=== PATIENT | male | born 1985 | race Caucasian/White ===

== ENCOUNTER 2022-12-29 16:58 | Inpatient (IN) | payer OTHER, SELFPAY ==
[2022-12-29 17:29] VITALS: BMI 21.6
[2022-12-29 17:49] VITALS: BP 135/77; PULSE 67; RESP 20; TEMP 36.6; O2SAT 99
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
[2022-12-29] MEDS: traZODone HCL 50 MG TABLET PO (21:22)
[2022-12-29] MEDS: cloNIDine HCL 0.1 MG TABLET PO (21:22)
[2022-12-30] MEDS: Naltrexone HCl 50 MG TABLET PO (08:16)
[2022-12-30 09:21] LABS: Alanine Aminotransferase 23 U/L (0-40); Albumin Level 4.1 g/dL (3.5-5.0); Alkaline Phosphatase 134 U/L (39-117); Anion Gap 11 (12-20); Aspartate Amino Transferase 22 U/L (5-37); Bilirubin Total 0.5 mg/dL (0.0-1.0); Blood Urea Nitrogen 9 mg/dL (9-16); Calcium 9.7 mg/dL (8.4-10.2); Carbon Dioxide 29 mmol/L (22-29); Chloride 102 mmol/L (96-108); Cholesterol 196 mg/dL (<200); Creatinine Clr Calc Pharmacy 134.9; Estimated Glomerular Filt Rate > 60; Glucose Fasting 108 mg/dL (60-99); HDL Cholesterol 50 mg/dL (>40); LDL Cholesterol Calculated 112 mg/dL (<100); Potassium 4.5 mmol/L (3.3-5.1); Sodium 137 mmol/L (135-145); Total Protein 7.6 g/dL (6.5-8.0); Triglycerides 173 mg/dL (<150)
[2022-12-30 10:22] VITALS: BP 126/80; PULSE 81; RESP 20; TEMP 36.2; O2SAT 98
[2022-12-30] MEDS: cloNIDine HCL 0.1 MG TABLET PO ×2 (11:35→18:15)
[2022-12-30 11:36] VITALS: BP 124/76; PULSE 76
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
[2022-12-30] MEDS: Venlafaxine HCl ER 37.5 MG CAP.ER.24H PO (18:14)
[2022-12-30 18:16] VITALS: BP 122/77; PULSE 77
[2022-12-30 19:50] VITALS: BP 118/76; PULSE 74; RESP 16; TEMP 36.7; O2SAT 97
[2022-12-30] MEDS: traZODone HCL 50 MG TABLET PO (22:01)
[2022-12-30] MEDS: hydrOXYzine HCL 25 MG TABLET PO (22:01)
[2022-12-30] MEDS: Cyclobenzaprine HCl 5 MG TABLET PO (22:01)
[2022-12-31 06:00] VITALS: BP 120/77; PULSE 88; RESP 20; TEMP 36.4; O2SAT 94
[2022-12-31] MEDS: Venlafaxine HCl ER 37.5 MG CAP.ER.24H PO (08:30)
[2022-12-31] MEDS: Naltrexone HCl 50 MG TABLET PO (08:30)
[2022-12-31 10:50] VITALS: BP 119/69; PULSE 107; RESP 16; O2SAT 98
[2022-12-31] MEDS: cloNIDine HCL 0.1 MG TABLET PO ×2 (10:51→19:01)
[2022-12-31] MEDS: Acetaminophen 325 MG TABLET 650 MG PO (10:51)
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
[2022-12-31 18:00] VITALS: BP 120/79; PULSE 77; RESP 16
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
[2022-12-31 20:05] VITALS: BP 115/70; PULSE 70; RESP 14; TEMP 36.8; O2SAT 99
[2022-12-31] MEDS: Cyclobenzaprine HCl 5 MG TABLET PO (21:48)
[2022-12-31] MEDS: traZODone HCL 50 MG TABLET PO (21:49)
[2023-01-01 07:45] VITALS: BP 105/60; PULSE 76; TEMP 36.5; O2SAT 94
[2023-01-01] MEDS: Venlafaxine HCl ER 37.5 MG CAP.ER.24H PO (08:49)
[2023-01-01] MEDS: Naltrexone HCl 50 MG TABLET PO (09:19)
[2023-01-01] MEDS: cloNIDine HCL 0.1 MG TABLET PO ×2 (11:05→19:49)
[2023-01-01 19:45] VITALS: BP 117/76; PULSE 74; RESP 16
[2023-01-01] MEDS: guaiFENesin DM 100/10/5 ML 5 ML SYRUP PO (20:27)
[2023-01-01] MEDS: Throat Lozenge, Medicated LOZENGE 1 LOZENGE MUCOUS MEM (20:28)
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
[2023-01-01] MEDS: Cyclobenzaprine HCl 5 MG TABLET PO (20:52)
[2023-01-01] MEDS: traZODone HCL 50 MG TABLET PO (20:52)
[2023-01-02 07:47] VITALS: BP 105/65; PULSE 78; RESP 14; TEMP 36.3; O2SAT 98
[2023-01-02] MEDS: Venlafaxine HCl ER 75 MG CAP.ER.24H PO (08:48)
[2023-01-02] MEDS: Naltrexone HCl 50 MG TABLET PO (08:48)
[2023-01-02 11:01] VITALS: BP 128/74; PULSE 95
[2023-01-02] MEDS: cloNIDine HCL 0.1 MG TABLET PO ×3 (11:08→20:12)
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
[2023-01-02 16:11] VITALS: BP 131/64; PULSE 63
[2023-01-02 20:06] VITALS: BP 117/79; PULSE 76; RESP 16; TEMP 37.3; O2SAT 97
[2023-01-02] MEDS: Cyclobenzaprine HCl 5 MG TABLET PO (22:47)
[2023-01-02] MEDS: traZODone HCL 50 MG TABLET PO (22:47)
[2023-01-03 08:17] VITALS: BP 108/54; PULSE 72; RESP 20; TEMP 36.2; O2SAT 97
[2023-01-03] MEDS: Venlafaxine HCl ER 75 MG CAP.ER.24H PO (08:19)
[2023-01-03] MEDS: Naltrexone HCl 50 MG TABLET PO (08:19)
[2023-01-03] MEDS: cloNIDine HCL 0.1 MG TABLET PO ×4 (08:53→22:27)
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
[2023-01-03 18:00] VITALS: BP 116/56; PULSE 81; RESP 20; TEMP 36.9; O2SAT 95
[2023-01-03] MEDS: Cyclobenzaprine HCl 5 MG TABLET PO (22:24)
[2023-01-03] MEDS: traZODone HCL 50 MG TABLET PO (22:24)
[2023-01-04 08:31] VITALS: BP 100/48; PULSE 83; RESP 18; TEMP 36.7; O2SAT 96
[2023-01-04] MEDS: Venlafaxine HCl ER 75 MG CAP.ER.24H PO (08:32)
[2023-01-04] MEDS: Naltrexone HCl 50 MG TABLET PO (08:32)
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
[2023-01-04] MEDS: cloNIDine HCL 0.1 MG TABLET PO ×3 (10:38→21:43)
[2023-01-04] MEDS: Cyclobenzaprine HCl 5 MG TABLET PO ×2 (17:26→21:42)
[2023-01-04 20:04] VITALS: BP 121/58; PULSE 76; RESP 20; TEMP 36.5; O2SAT 99
[2023-01-04] MEDS: traZODone HCL 50 MG TABLET PO (21:43)
[2023-01-05 07:05] VITALS: BP 103/61; PULSE 68; RESP 22; TEMP 36.6; O2SAT 98
[2023-01-05 08:28] VITALS: BMI 22.2
[2023-01-05] MEDS: Naltrexone HCl 50 MG TABLET PO (08:37)
[2023-01-05] MEDS: Venlafaxine HCl ER 75 MG CAP.ER.24H PO (08:38)
[2023-01-05 10:35] VITALS: BP 123/68; PULSE 91
[2023-01-05] MEDS: cloNIDine HCL 0.1 MG TABLET PO ×3 (10:37→20:05)
[2023-01-05 14:59] VITALS: BP 118/69; PULSE 75
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
[2023-01-05 20:00] VITALS: BP 114/67; PULSE 76; RESP 15; TEMP 36.7; O2SAT 99
[2023-01-05] MEDS: Cyclobenzaprine HCl 5 MG TABLET PO (21:13)
[2023-01-05] MEDS: traZODone HCL 50 MG TABLET PO (21:14)
[2023-01-06 08:13] VITALS: BP 102/60; PULSE 69; RESP 16; TEMP 36.4; O2SAT 95
[2023-01-06] MEDS: Venlafaxine HCl ER 75 MG CAP.ER.24H PO (08:52)
[2023-01-06] MEDS: Naltrexone HCl 50 MG TABLET PO (08:52)
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
[2023-01-06] MEDS: cloNIDine HCL 0.1 MG TABLET PO ×3 (09:40→20:02)
[2023-01-06 20:00] VITALS: BP 116/72; PULSE 78; RESP 16; O2SAT 95
[2023-01-06] MEDS: traZODone HCL 50 MG TABLET PO (21:56)
[2023-01-06] MEDS: Cyclobenzaprine HCl 5 MG TABLET PO (21:56)
[2023-01-07 08:20] VITALS: BP 109/63; PULSE 73; RESP 18; TEMP 37; O2SAT 97
[2023-01-07] MEDS: Venlafaxine HCl ER 75 MG CAP.ER.24H PO (08:38)
[2023-01-07] MEDS: Naltrexone HCl 50 MG TABLET PO (08:38)
[2023-01-07] MEDS: cloNIDine HCL 0.1 MG TABLET PO ×2 (16:32→21:55)
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
[2023-01-07 19:55] VITALS: BP 129/73; PULSE 74; RESP 17; TEMP 36.7; O2SAT 96
[2023-01-07 21:50] VITALS: BP 127/79; PULSE 70; RESP 16; O2SAT 98
[2023-01-07] MEDS: Cyclobenzaprine HCl 5 MG TABLET PO (21:55)
[2023-01-07] MEDS: traZODone HCL 50 MG TABLET PO (21:55)
[2023-01-08 08:33] VITALS: BP 101/64; PULSE 77; RESP 18; TEMP 2.6; TEMP 36.7
[2023-01-08] MEDS: Naltrexone HCl 50 MG TABLET PO (08:34)
[2023-01-08] MEDS: Venlafaxine HCl ER 75 MG CAP.ER.24H PO (08:34)
[2023-01-08] MEDS: cloNIDine HCL 0.1 MG TABLET PO ×3 (09:38→18:51)
[2023-01-08] MEDS: Cyclobenzaprine HCl 5 MG TABLET PO ×2 (11:43→20:48)
[2023-01-08] MEDS: Acetaminophen 325 MG TABLET 650 MG PO (11:43)
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
[2023-01-08 18:00] VITALS: BP 107/60; PULSE 80; RESP 18; TEMP 36.5; O2SAT 99
[2023-01-08] MEDS: hydrOXYzine HCL 25 MG TABLET PO (18:51)
[2023-01-08] MEDS: traZODone HCL 50 MG TABLET PO (20:48)
[2023-01-09] MEDS: cloNIDine HCL 0.1 MG TABLET PO ×2 (04:23→10:40)
[2023-01-09 07:30] VITALS: BP 102/55; PULSE 75; RESP 16; TEMP 36.2; O2SAT 98
[2023-01-09] MEDS: Naltrexone HCl 50 MG TABLET PO (08:52)
[2023-01-09] MEDS: Venlafaxine HCl ER 75 MG CAP.ER.24H PO (08:52)
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
== END 2023-01-09 13:30 | DRG 751 ==
PROVIDERS: Psychiatry & Neurology Psychiatry; Admitting Provider Psychiatry & Neurology Psychiatry; Visit Provider Psychiatry & Neurology Psychiatry
DX: F33.2 Major depressive disorder, recurrent severe without psychotic features (principal); Q87.40 Marfan syndrome, unspecified; R45.851 Suicidal ideations; F43.10 Post-traumatic stress disorder, unspecified; Z59.02 Unsheltered homelessness; F10.10 Alcohol abuse, uncomplicated; Z79.899 Other long term (current) drug therapy
CPT/HCPCS: 36415; 80053; 80061; 90686

== ENCOUNTER → 2022-12-29 16:58 | Outpatient (BNV) | payer OTHER, SELFPAY | PROVIDERS: Admitting Provider Psychiatry & Neurology Psychiatry; Visit Provider Psychiatry & Neurology Psychiatry | DX: F33.2 Major depressive disorder, recurrent severe without psychotic features (principal); F43.11 Post-traumatic stress disorder, acute; F10.90 Alcohol use, unspecified, uncomplicated | CPT/HCPCS: 99231; 99232 ==

== ENCOUNTER → 2022-12-29 16:58 | Outpatient (BNV) | payer MEDICAID, SELFPAY | PROVIDERS: Admitting Provider Psychiatry & Neurology Psychiatry; Visit Provider Nurse Practitioner Acute Care | DX: F10.90 Alcohol use, unspecified, uncomplicated (principal) | CPT/HCPCS: 99222 ==

== ENCOUNTER 2024-04-19 20:40 | Emergency (ER) | payer MEDICAID, SELFPAY ==
[2024-04-19 20:43] VITALS: BP 158/84; PULSE 100; RESP 17; TEMP 36.5; O2SAT 98; BMI 19.8
--- NOTE | 2024-04-19 20:43 | ED_ITS ---
HPI - Psych General Chief Complaint: Psychiatric Symptoms Stated Complaint: wants to check himself in for SI thoughts Time Seen by Provider: 04/19/24 22:43 Source: patient Mode of arrival: ambulatory Limitations: no limitations History of Present Illness ED Provider: HPI Narrative: Patient's history of alcohol abuse depression been drinking heavy for last 1 week feels suicidal with no plan asking for help for detox and depression Related Data Previous Rx's ?Medication ?Instructions ?Recorded acetaminophen 325 mg tablet 650 mg (2 x 325 mg) PO Q6H PRN 01/09/23 Headache/Pain Mild Scale (1-3) 30 days #30 tabs atomoxetine 80 mg capsule 80 mg PO DAILY 30 days #30 caps 01/09/23 clonidine HCl 0.1 mg tablet 0.1 mg PO TID PRN Anxiety 30 days 01/09/23 #90 tabs cyclobenzaprine 5 mg tablet 5 mg PO DAILY PRN Muscle Spasm 30 01/09/23 days #30 tabs food supplemt, lactose-reduced 1 ea PO TID 30 days #5,688 mL 01/09/23 (Ensure oral liquid) naltrexone 50 mg tablet 50 mg PO DAILY 30 days #30 tabs 01/09/23 trazodone 50 mg tablet 50 mg PO BEDTIME PRN Insomnia 30 01/09/23 days #30 tabs venlafaxine 75 mg capsule,extended 75 mg PO DAILY 30 days #30 caps 01/09/23 release 24 hr food supplemt, lactose-reduced 1 ea PO BID 12 days #5,688 mL 01/20/23 (Ensure oral liquid) Allergies Allergy/AdvReac Type Severity Reaction Status Date / Time No Known Allergies Allergy Verified 04/19/24 20:46 Review of Systems 2 Review of Systems: Yes all other systems are reviewed and are negative PMFSH Past Medical History Medical History Marfan syndrome Alcohol use disorder PTSD (post-traumatic stress disorder) MDD (major depressive disorder), recurrent severe, without psychosis Family History Family History Mother Skin cancer Social History Social History Household Members: None Housing: Homeless Do you presently have visiting nurse or other home services: No Patient Tobacco Use Status: Never used Tobacco Second Hand Smoke Exposure: No Advance Directives: No Advance Directives Information Provided: No Do you have a plan to hurt others: No Plan service: No Sexual orientation: Straight/Heterosexual Physical Exam 2 Vital Signs: Vital Signs: Last Vital Signs Temp 98.0 F 04/20/24 07:34 Pulse 105 H 04/20/24 07:34 Resp 14 04/20/24 07:34 BP 126/77 04/20/24 07:34 Pulse Ox 96 04/20/24 07:34 O2 Del Method Room Air 04/20/24 07:34 BMI result Body Mass Index 19.8 Appearance: Alert. Oriented X3. No acute distress. etoh+ Eyes: PERRLA, No Nystagmus ENT: Pharynx normal. Oral Mucosa moist Neck: Normal inspection. Neck supple. CVS: Normal heart rate and rhythm. Pulses normal. Respiratory: No respiratory distress. Equal air entry bilateral, no wheezing/rales/rhonchi Abdomen: Soft and nontender. Bowel sounds are present, no mass palpable, no CVA tenderness Skin: Skin warm and dry. Normal skin color. Normal skin turgor. Extremities: No lower extremity edema. No calf tenderness psych: Feel depressed with no plan at this time no hallucination or delusion Neuro: Oriented X 3. No motor deficit. Course Course Course Narrative: This is a Rapid Medical Exam performed in triage by Nadja Tello PA-C. Full HPI, ROS and PE to be performed by primary ED provider. 38 yo M w/pmhx PTSD, MDD, presenting to the ED c/o +suicidal ideations without plan and ETOH abuse. Last drink [facility]. Admits relapsed recently. Drink 16 - 100 proof nips today. denies illicit substance use. denies hx withdrawal seizures. denies HI, AH/VH PE: +intoxicated, ambulating w/steady gait Plan: Labs, GALLEGOS, CARE consult Reevaluation(s) Reevaluation #1: observation continued started on PRN ativan, pending CARE team assessment and dispo, will continue to monitor KAILEE 1222pm 04/20/24 Medications Administered Discontinued Medications Generic Name Dose Route Start Last Admin Trade Name Freq PRN Reason Stop Dose Admin Al Hydroxide/Mg Hydroxide 30 ml 04/19/24 23:04 04/19/24 23:10 Magnesium Hydrox/Alum Hydrox 30 Ml Oral.Susp PO 04/19/24 23:05 30 ml ONCE ONE Administration Lorazepam 2 mg 04/19/24 23:01 04/19/24 23:10 Lorazepam 1 Mg Tablet PO 04/19/24 23:02 2 mg ONCE ONE Administration Lorazepam 2 mg 04/20/24 07:39 04/20/24 08:16 Lorazepam 1 Mg Tablet PO 04/20/24 07:40 2 mg ONCE ONE Administration Melatonin 6 mg 04/19/24 21:31 04/19/24 22:36 Melatonin 3 Mg Tablet PO 04/19/24 21:32 6 mg ONCE ONE Administration Omeprazole 40 mg 04/19/24 23:04 04/20/24 00:40 Omeprazole 40 Mg Capsule. PO 04/19/24 23:05 Not Given ONCE ONE Ondansetron HCl 4 mg 04/19/24 23:04 04/19/24 23:10 Ondansetron Odt 4 Mg Tab.Rapdis TRANSLINGU 04/19/24 23:05 4 mg ONCE ONE Administration Ondansetron HCl 4 mg 04/20/24 07:38 04/20/24 07:42 Ondansetron Odt 4 Mg Tab.Rapdis TRANSLINGU 04/20/24 07:39 4 mg ONCE ONE Administration Medical Decision Making Medical Decision Making MDM Narrative: Patient's depression with SI with history of alcohol use care team was consulted disposition pending their evaluation patient is medically cleared Differential Diagnosis Differential Diagnoses: The differential diagnosis associated with the presentation includes Lab Data MDM Lab Attestation statement: I reviewed the patient's lab results. 04/19/24 21:10 04/19/24 21:10 Labs: Lab Results 04/19/24 Range/Units 21:10 WBC 7.8 (4.8-10.8) X10*3/uL RBC 4.64 (4.60-5.80) X10*6/uL Hgb 14.6 (14.0-18.0) g/dl Hct 41.6 L (42.0-52.0) % MCV 89.7 (80.0-98.0) fL MCH 31.5 (27.0-33.0) pg MCHC 35.1 (31.0-36.0) g/dl RDW 14.5 (11.0-16.0) % Plt Count 292 (160-400) X10*3/uL MPV 9.8 (9.4-12.4) fL Immature Gran % (Auto) 0.3 (0.0-0.4) % Neut % (Auto) 62.9 (45-73) % Lymph % (Auto) 22.1 (20-40) % Freestone % (Auto) 10.3 (2-11) % Eos % (Auto) 2.9 (0-4) % Baso % (Auto) 1.5 (0-2) % Lymph # (Auto) 1.7 (1.2-4.9) X10*3/uL Freestone # (Auto) 0.8 (0.1-1.2) X10*3/uL Eos # (Auto) 0.2 (0.0-0.4) X10*3/uL Baso # (Auto) 0.1 (0.0-0.2) X10*3/uL Abs Immat Gran (auto) 0.02 (0.00-0.03) X10*3/uL Absolute Neuts (auto) 4.9 (2.0-8.3) x10*3/uL Absolute Nucleated RBC 0.000 (0.0-0.012) X10*3/uL Nucleated RBC % (auto) 0.0 (0.0-0.2) /100WBC Sodium 139 (135-145) mmol/L Potassium 4.0 (3.3-5.1) mmol/L Chloride 103 (96-108) mmol/L Carbon Dioxide 26 (22-29) mmol/L Anion Gap 14 (12-20) BUN 5 L (9-16) mg/dL Creatinine 0.71 (0.5-1.4) mg/dL Estim Creat Clear Calc 138.4 Estimated GFR > 60 Random Glucose 98 (60-115) mg/dL Calcium 8.8 D (8.4-10.2) mg/dL Magnesium 2.0 (1.6-2.6) mg/dL Total Bilirubin 0.4 (0.0-1.0) mg/dL Direct Bilirubin 0.1 (0.0-0.5) mg/dL AST 94 H (5-37) U/L ALT 163 H (0-40) U/L Alkaline Phosphatase 149 H (39-117) U/L Total Protein 7.5 (6.5-8.0) g/dL Albumin 4.4 (3.5-5.0) g/dL Lipase 28 (8-78) U/L Urine Opiates Screen Not Detected (Not Detect) Ur Buprenorphine Scrn Not Detected (Not Detect) ng/mL Ur Oxycodone Screen Not Detected (Not Detect) ng/mL Urine Methadone Screen Not Detected (Not Detect) ng/mL Urine Fentanyl Screen Not Detected (Not Detect) Ur Barbiturates Screen Not Detected (Not Detect) Ur Phencyclidine Scrn Not Detected (Not Detect) Ur Amphetamines Screen Not Detected (Not Detect) U Benzodiazepines Scrn Not Detected (Not Detect) Urine Cocaine Screen Not Detected (Not Detect) U Marijuana (THC) Screen Not Detected (Not Detect) Ethyl Alcohol 226 mg/dL Influenza Type A (PCR) NEGATIVE (Negative) Influenza Type B (PCR) NEGATIVE (Negative) RSV RNA Qual (PCR) NEGATIVE (Negative) SARS-CoV-2 RNA (RT-PCR) NEGATIVE (Negative) Discharge Plan Discharge Clinical Impression: Alcohol use disorder, Depression with suicidal ideation Patient Disposition: Still a Patient Prescriptions: No Action clonidine HCl 0.1 mg Tablet 0.1 mg PO TID PRN (Reason: Anxiety) 30 Days Qty: 90 0RF Protocol: Hold for SBP< HOLD for SBP < : 90 acetaminophen 325 mg Tablet 650 mg PO Q6H PRN (Reason: Headache/Pain Mild Scale (1-3)) 30 Days Qty: 30 0RF venlafaxine 75 mg Capsule,Extended Release 24hr 75 mg PO DAILY 30 Days Qty: 30 0RF trazodone 50 mg Tablet 50 mg PO BEDTIME PRN (Reason: Insomnia) 30 Days Qty: 30 0RF cyclobenzaprine 5 mg Tablet 5 mg PO DAILY PRN (Reason: Muscle Spasm) 30 Days Qty: 30 0RF naltrexone 50 mg Tablet 50 mg PO DAILY 30 Days Qty: 30 0RF atomoxetine 80 mg capsule 80 mg PO DAILY 30 Days Qty: 30 0RF Rx Instructions: start after finishing one week of atomoxetine 40 mg daily. Ensure Liquid 1 ea PO TID 30 Days Qty: 5688 3RF Ensure Liquid 1 ea PO BID 12 Days Qty: 5688 0RF Interventions: [place]-Suicide Risk Severity Scale Last Done: 04/19/24 20:54 Print Language: Vietnamese
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
--- OUTSIDE RECORDS SUMMARY | 2024-04-19 20:53 | XMS_ITS | Patient Health Record ---
Author Organization [facility] Address [address] [place], [place] [id number] Care Team Providers Care Security And Compliance Project Manager Name Role Phone Ruchi Franklin Primary Care Provider [facility], Nursing Unavailable [phone] Buffy Morgan Unavailable [facility], CH[facility] Unavailable [phone] Allergies No Known Allergies Reason For Referral No Information Medications Medication SIG (Take, Route, Frequency, Duration) Notes Start Date End Date Status naltrexone 50 mg 1 tab(s) orally once a day Active venlafaxine 150 mg 1 cap(s) orally once a day Active cloNIDine 0.1 mg 1 tab(s) orally thre es times a day as needed Active hydrOXYzine hydrochloride 50 mg 1 tab(s) orally [...] 2 hours for 30 days 03/30/2023 Active Immunizations Vaccine Route Administration Date Status Comme nts Tdap Unknown 01/21/2018 Administered Influenza Unknown 12/29/2022 Administered Moderna Covid-19 Vaccine Administration - First Dose (Single Dose 100MCG/0.5ML 1ST) Unknown 05/20/2020 Administered Moderna Covid-19 Vaccine Administration - Second Dose (Single Dose 100 MCG/0.5ML 2ND) Unknown 06/19/2020 Administered Moderna Covid-19 Booster Administration - Third Dose (Single Dose 50 mcg/0.25 mL Unknown 03/04/2021 Administered Moderna Covid-19 Booster Administration - Third Dose (Single Dose 50 mcg/0.25 mL Unknown 01/06/2022 Administered Hepatitis A IM Intramuscular 04/19/2023 Administered [id number] 160-826-5 2 Heplisav-B IM Intramuscular 04/19/2023 Administered [facility] 04417-133-37 Heplisav-B IM Intramuscular 05/18/2023 Administered [facility] 11580-630-54 Social History Tobacco Use: Social History Observation Description Date Details (start date - stop date) Light tobacco s moker NA - NA Tobacco Use Assessment MU Question Answer Notes What is your current smoking status? light tobac co smoker smokes cigars Problems Problem Type SNOMED Code ICD Code Onset Dates Problem Status W/U Status Risk Notes Problem Vitamin D deficiency (69846856) Vitamin D deficiency, unspecified (E55.9) Active confirmed Problem Tobacco user (909666373) Nicotine dependence, other tobacco product, uncomplicated (F17.290) Active confirmed Problem Cervical radiculopathy (44911944) Radiculopathy, cervical region (M54.12) Active confirmed Problem Marfan's syndrome (46720400) Marfan's syndrome with skeletal manifestation (Q87.43) Active confirmed Problem Body mass index 20-24 - normal (846964122) Body mass index [BMI] 24.0-24.9, adult (Z68.24) Active confirmed Problem Low back pain (097636671) Low back pain, unspecified (M54.50) Active confirmed Problem Sheltered homelessness (132852463723788) Sheltered homelessness (Z59.01) Active confirmed Problem Current drinker of alcohol (finding) (560352) Alcohol use, unspecified, uncomplicated (F10.90) Active confirmed Vital Signs Temperature 98.1 degrees Fahrenheit 04/19/2023 Blood pressure diastolic 83 04/19/2023 Oximetry 99 04/19/2023 Height 74 in 04/19/2023 Blood pressure systolic 124 04/19/2023 Weight 191.2 lbs 04/19/2023 BMI 24.55 kg/m2 04/19/2023 Encounters Encounter Location Date Provider Diagnosis [address] [id number] 04/19/[address] [id number] 04/19/2023 Eddieliza Casionan Encounter for immunization Z23 ; Radiculopathy, cervical region M54.12 ; Nicotine dependence, other tobacco product, uncomplicated F17.290 ; Person consulting for explanation of examination or test findings Z71.2 and Vitamin D deficiency, unspecified E55.[address] [id number] 05/18/2023 Nursing [facility] Encounter for immunization Z23 [facility] [address] [place], [place] [id number] 05/18/2023 [facility] [employer] [address] [place] [id number] 10/04/2023 Buffy Morgan [address] [id number] 04/20/2023 Eddieliza Casionan [address] [id number] 05/12/2023 Eddieliza Casionan [address] [id number] 08/01/2023 Eddieliza Casionan Nicotine dependence, other tobacco product, uncomplicated F17.[address] [id number] 11/20/2023 Eddieliza Casionan [address] [id number] 11/24/2023 Eddieliza Casionan Assessments Encounter Date Diagnosis (ICD Code) Assessment Notes Treatment Notes Treatment Clinical Notes 04/19/2023 Radiculopathy, cervical region (ICD-10 - M54.12) advised warm pack 15-20 minutes 3x/day He did not leaf size picker NSAID and muscle relaxant sent by [facility]. We will resend 04/19/2023 Encounter for immunization (ICD-10 - Z23) VIS reviewed. Discussed risks and benefits of vaccine. Agrees to have vaccine. Vaccine given w/o adverse effect 05/18/2023 Encounter for immunization (ICD-10 - Z23) Screening performed for vaccine contraindications prior to administration. See scanned document. VIS reviewed. No contraindications for vaccine administration. Hepatitis B # vaccine given per protocol. No adverse outcome with administration of vaccine. Shots series is done, Immunity complete. 08/01/2023 Nicotine dependence, other tobacco product, uncomplicated (ICD-10 - F17.290) 04/19/2023 Nicotine dependence, other tobacco product, uncomplicated (ICD-10 - F17.290) continues to smoke 04/19/2023 Person consulting for explanation of examination or test findings (ICD-10 - Z71.2) Reviewed results of recent diagnostic testing with client. Testing was (ab)normal. Future plan of action discussed. 04/19/2023 Vitamin D deficiency, unspecified (ICD-10 - E55.9) 04/02/2024 Other Plan Of Treatment Pending Test Test Name Order Date HEPATITIS A,B,C PROFILE 03/30/2023 Insurance Providers Payer Name Payer Address Payer Phone Subscriber Number Group Number Insured Name Patient Relationship to Insured Coverage Start Date Coverage End Date [place] Medicaid C3 [address] [place], [place] [id number] Igor Briseno Self - patient is the insured 3 Medical (General) History Medical History History ICD Code ADHD Social Anxiety Disorder PTSD ETOH abuse Marphan's Syndrome anxiety depression Hospitalization History Reason Date(Month/Year) Multiple Psych/Detox admits 2 x in [facility] and 1 x at [facility]
--- OUTSIDE RECORDS SUMMARY | 2024-04-19 20:54 | XMS_ITS ---
Author Organization [facility] Address [address] [place], [place] [phone] Care Team Providers Care Executive Administrative Asst Name Role Phone Ruchi Franklin Primary Care Provider [phone] REASON FOR VISIT C3 Er Visit Encounters Encounter Location Date Provider Diagnosis [address] [id number] 11/20/2023 Ruchi Franklin Plan Of Treatment No Information Progress Notes * Igor BRISENO IIIDOB: 1985 (38 yo M)Acc No.[id number]:11/20/2023 Patient:?Igor Briseno :1985???Age:38 Y???Sex:Male Address:[address] [place] [address] [place] [address] * true * Date:? Generated for Katrin goodrich/Andrey/eTransmitting on:?04/19/2024 08:53 PM EST
[2024-04-19 21:17] LABS: MANUAL DIFF FLAG NO
[2024-04-19 21:31] LABS: Basophils Absolute Auto 0.1 X10*3/uL (0.0-0.2); Basophils Percent Auto 1.5 % (0-2); Eosinophils Absolute Auto 0.2 X10*3/uL (0.0-0.4); Eosinophils Percent Auto 2.9 % (0-4); Hematocrit 41.6 % (42.0-52.0); Hemoglobin 14.6 g/dl (14.0-18.0); Imm Gran Abs Auto 0.02 X10*3/uL (0.00-0.03); Imm Gran Pct Auto 0.3 % (0.0-0.4); Lymphocytes Absolute Auto 1.7 X10*3/uL (1.2-4.9); Lymphocytes Percent Auto 22.1 % (20-40); Mean Corpuscular HGB Conc 35.1 g/dl (31.0-36.0); Mean Corpuscular Hemoglobin 31.5 pg (27.0-33.0); Mean Corpuscular Volume 89.7 fL (80.0-98.0); Mean Platelet Volume 9.8 fL (9.4-12.4); Monocytes Absolute Auto 0.8 X10*3/uL (0.1-1.2); Monocytes Percent Auto 10.3 % (2-11); Neutrophils Absolute Auto 4.9 x10*3/uL (2.0-8.3); Neutrophils Percent Auto 62.9 % (45-73); Platelet Count 292 X10*3/uL (160-400); Red Blood Count 4.64 X10*6/uL (4.60-5.80); Red Cell Distribution Width 14.5 % (11.0-16.0); White Blood Count 7.8 X10*3/uL (4.8-10.8)
[2024-04-19 21:43] LABS: Amphetamine Screen Urine Not Detected (Not Detect); Barbiturates, Urine Not Detected (Not Detect); Benzodiazepines Screen Urine Not Detected (Not Detect); Buprenorphine Scr Not Detected (Not Detect); Cannabinoid Screen Urine Not Detected (Not Detect); Cocaine Screen Urine Not Detected (Not Detect); Fentanyl, urine Not Detected (Not Detect); Methadone Screen, Urine Not Detected (Not Detect); Opiate Screen Urine Not Detected (Not Detect); Oxycodone Screen Urine Not Detected (Not Detect); Phencyclidine Screen Urine Not Detected (Not Detect)
[2024-04-19 21:46] LABS: Alanine Aminotransferase 163 U/L (0-40); Albumin Level 4.4 g/dL (3.5-5.0); Alkaline Phosphatase 149 U/L (39-117); Anion Gap 14 (12-20); Aspartate Amino Transferase 94 U/L (5-37); Bilirubin Direct 0.1 mg/dL (0.0-0.5); Bilirubin Total 0.4 mg/dL (0.0-1.0); Blood Urea Nitrogen 5 mg/dL (9-16); Calcium 8.8 mg/dL (8.4-10.2); Carbon Dioxide 26 mmol/L (22-29); Chloride 103 mmol/L (96-108); Creatinine Clr Calc Pharmacy 138.4; Estimated Glomerular Filt Rate > 60; Ethanol 226 mg/dL; Glucose Random 98 mg/dL (60-115); Lipase 28 U/L (8-78); Sodium 139 mmol/L (135-145); Total Protein 7.5 g/dL (6.5-8.0)
[2024-04-19 22:09] LABS: Influenza A PCR NEGATIVE (Negative); Influenza B PCR NEGATIVE (Negative); Resp Syncy Virus RNA Qual PCR NEGATIVE (Negative); SARS COV2 PCR INHOUSE NEGATIVE (Negative)
[2024-04-19] MEDS: Melatonin 3 MG TABLET 6 MG PO (22:36)
[2024-04-19 22:42] VITALS: BP 123/82; PULSE 100; RESP 18; TEMP 36.8; O2SAT 95
[2024-04-19] MEDS: Magnesium Hydrox/Alum Hydrox 30 ML ORAL.SUSP PO (23:10)
[2024-04-19] MEDS: LORazepam 1 MG TABLET 2 MG PO (23:10)
[2024-04-19] MEDS: Ondansetron ODT 4 MG TAB.RAPDIS TRANSLINGU (23:10)
--- NOTE | 2024-04-20 00:53 | PC.NURSE ---
restless and self dialogues. redirected for eating in front of nurses station, did comply.
[2024-04-20 07:34] VITALS: BP 126/77; PULSE 105; RESP 14; TEMP 36.7; O2SAT 96
--- NOTE | 2024-04-20 07:37 | PC.NURSE ---
Pt scoring 10 on CIWA, also vomiting; Dr De Souza made aware; awaiting orders
[2024-04-20] MEDS: Ondansetron ODT 4 MG TAB.RAPDIS TRANSLINGU (07:42)
[2024-04-20] MEDS: LORazepam 1 MG TABLET 2 MG PO ×3 (08:16→19:22)
--- NOTE | 2024-04-20 09:45 | PC.NURSE ---
Pt's sx's improved with medication/resting quietly at this time
--- NOTE | 2024-04-20 11:40 | MHC.RECOVRN ---
Met with pt in [facility] to discuss ongoing alcohol use. Pt stated that for the last 3-4 days he has been drinking 10-16 100-proof nips daily. Recent stressors identified include employment issues and feeling lonely/isolation. He states that he has had a 9-month period of sobriety in the past and multiple ATS/CSS/TSS admissions including at the [facility], [facility], and the [facility]. He also reports having had 2 inpatient psych admissions 2 years ago relating to his alcohol use and passive SI at [facility]- and at [facility]. He denies current SI/HI (no plan or intent) but states he sometimes has passive suicidal thoughts with no plan or intent. He also denies AH/VH. When asked if patient thinks he needs an inpatient psych admission, pt declined stating My alcohol use is what's really the issue here, I've been doing fine otherwise. Pt rated his depression 8/10 and anxiety 8/10 as well. He reported he was on Naltrexone for his Alcohol Use Disorder in the past but stopped taking it recently. Pt is support and detox-seeking. Pt requested that ATS referrals are sent on his behalf. Referrals have been sent to the following facilities for review: 1. [facility] in [place] 2. [facility] in [place] 3. [facility] (multiple locations) 4. [facility] in [place] 5. [facility] in [place] Will follow up shortly via phone call
--- NOTE | 2024-04-20 12:25 | PC.NURSE ---
Pt tolerating PO intake
--- NOTE | 2024-04-20 14:25 | MHC.RECOVRN ---
Pt accepted at [facility] for ATS. He is expected to be there at 8pm [facility]. Care team to call [employer] for patient. ED provider and nurse aware.
[2024-04-20 19:19] VITALS: BP 122/77; PULSE 94; RESP 14; TEMP 37.7; O2SAT 98
== END 2024-04-20 19:39 | disposition other institution (70) ==
PROVIDERS: Physician Assistant; Emergency Provider Internal Medicine
DX: R45.851 Suicidal ideations (principal); F33.1 Major depressive disorder, recurrent, moderate; F10.10 Alcohol abuse, uncomplicated; Y90.7 Blood alcohol level of 200-239 mg/100 ml; Z51.81 Encounter for therapeutic drug level monitoring; Z03.818 Encounter for observation for suspected exposure to other biological agents ruled out; Z79.899 Other long term (current) drug therapy
CPT/HCPCS: 0241U; 80048; 80076; 80307; 83690; 83735; 85025; 99284; 99285; S9485

== ENCOUNTER 2024-10-17 19:21 | Inpatient (IN) | payer OTHER, SELFPAY ==
--- OUTSIDE RECORDS SUMMARY | 2024-04-02 06:00 | XMS_ITS ---
Author Organization [facility] Address [address] [place] [phone] Care Team Providers Care Fruit Coordinator Name Role Phone Ruchi Franklin Primary Care Provider [phone] Allergies No Known Allergies REASON FOR VISIT office: CPE Medications Medication SIG (Take, Route, Frequency, Duration) Notes Start Date End Date Status hydrOXYzine hydrochloride 50 mg 1 tab(s) orally twice a day PRN Active atomoxetine 80 mg 1 cap(s) orally once a day (in the morning) Active Melatonin 3 mg 1 cap(s) orally once a day (at bedtime) Active traZODone 50 mg 1 tab orally at bedt lyric PRN Active nicotine 4 mg as directed by transmucosal administration as needed every 2 hours for 30 days 03/30/2023 Active naltrexone 50 mg 1 tab(s) orally once a day Active venlafaxine 150 mg 1 cap(s) orally once a day Active cloNIDine 0.1 mg 1 tab(s) orally thre es times a day as needed Active Social History Tobacco Use: Social History Observation Description Date Details (start date - stop date) Light tobacco s moker NA - NA Tobacco Use Assessment MU Question Answer Notes What is your current smoking status? light tobac co smoker smokes cigars Encounters Encounter Location Date Provider Diagnosis [address] [phone] 04/02/2024 Ruchi Franklin Encounter for screening for [...] you are having concerning symptoms for COVID-19. Progress Notes * Igor BRISENO IIIDOB: 1985 (39 yo M)Acc No.[id number]:04/02/2024 Progress Notes Patient: Igor COPELAND III Provider: AC Callahan :1985 A ge:38 Y S ex:Male Date:04/02/2024 Address:[address] [place] [address] [place], [phone] Subjective: * Chief Complaints: * 1 . [...] [facility] flores Psych/Detox admits 2 x in [facility] and 1 x at [facility] . * Family History: M other: 59 yrs, diagnosed with Unspecified nonpsychotic mental disorder following organic brain damage, Cancer, disseminated. F ather: 69 yrs. 5 brother(s) , 3 sister(s) . . Mother fibromyalgia, thyroid issues, MH Father - post war injuries, Substance use Sibilings - MH, substance use, 1 brother has DM. * Social History: H ousing/living arrangements: 02/2023 [facility]. S [facility] Screening Entered Date 0 03/10/2023 How is this screening being conducted today? I n-person What is your housing situation today? I do not have housing (staying with others, in a hotel, in a skilled nursing, living outside on the street, on a beach, in a car or in a park) Transitional housing - [place] Think about the place you live. Do [...] ental Health: 02/2023 Has a therapist through [employer] in process of getting a psych prescriber there as well.. S chool Last grade completed 1 2 Reading/Writing competent L iterate W ork Hx: 2023 last worked under the [employer] jobs 11/2022. I ncome: 02/2023 no income. L egal issues/Incarcerations: 02/2023 denies. P CP/last visit: 02/2023 last saw a pcp atleast 5 years ago does not recall where or who. T ransportation: 02/2023 [employer] provides transportation. M arital Status: 02/2023 . [...] tx. S ocial hx: 02/2023 born in [place], raised in [place]. Lived with family growing up. * Medications: T aking atomoxetine 80 mg capsule 1 cap(s) orally once a day (in the morning) , Taking Melatonin 3 mg tablet 1 cap(s) orally once a day (at bedtime) , Taking traZODone 50 mg tablet 1 tab orally at bedtime PRN , Taking naltrexone 50 mg tablet 1 tab(s) orally once a day , Taking venlafaxine 150 mg capsule, extended release 1 cap(s) orally once a day , Taking cloNIDine 0.1 mg tablet 1 tab(s) orally threes times a day as needed , Taking hydrOXYzine hydrochloride 50 mg tablet 1 tab(s) orally twice a day PRN , Taking nicotine 4 mg lozenge as directed by transmucosal administration as needed every 2 hours * Allergies: N .K.D.A. Objective: * Vitals: Assessment: * Assessment: 1. E ncounter for screening for COVID-19 - Z11.52 (Primary) Plan: * Treatment: * Images: Billing Information: * Visit Code: * Procedure Codes: Care Plan Details* * Electronic signature of Dave Franklin on 10/17/2024 at 07:52 PM EDT Sign off status: Pending * Provider: AC Callahan Date: 0 04/02/2024 Generated for Katrin Romero on: 0 10/17/2024 07:52 PM EDT
[2024-10-17 19:23] VITALS: BP 141/87; PULSE 122; RESP 20; TEMP 36.3; O2SAT 95; BMI 23.0
--- NOTE | 2024-10-17 19:24 | ED_ITS ---
HPI - Psych General Chief Complaint: Psychiatric Symptoms Stated Complaint: crisis Time Seen by Provider: 10/17/24 22:19 Source: patient Mode of arrival: ambulatory Limitations: no limitations History of Present Illness ED Provider: Dr. Nazario HPI Narrative: This is a 39-year-old male history of alcohol use disorder presented hospital today for increased anxiety and depression. Patient stated that he has been drinking alcohol more. He has been off his medication. He has may plan to kill himself. Patient is looking for additional resource and looking to get back on medication. He does have history of alcohol withdrawal in the past. He just got his medicine refilled due to insurance issues. Patient is endorsing some palpitation Related Data Previous Rx's ?Medication ?Instructions ?Recorded acetaminophen 325 mg tablet 650 mg (2 x 325 mg) PO Q6H PRN 01/09/23 Headache/Pain Mild Scale (1-3) 30 days #30 tabs atomoxetine 80 mg capsule 80 mg PO DAILY 30 days #30 c aps 01/09/23 clonidine HCl 0.1 mg tablet 0.1 mg PO TID PRN Anxiety 30 days 01/09/23 #90 tabs cyclobenzaprine 5 mg tablet 5 mg PO DAILY PRN Muscle S pasm 30 01/09/23 days #30 tabs food supplemt, lactose-reduced 1 ea PO TID 30 days #5, 688 mL 01/09/23 (Ensure oral liquid) naltrexone 50 mg tablet 50 mg PO DAILY 30 days #30 t abs 01/09/23 trazodone 50 mg tablet 50 mg PO BEDTIME PRN Insomni a 30 01/09/23 days #30 tabs venlafaxine 75 mg capsule,extended 75 mg PO DAILY 30 d ays #30 caps 01/09/23 release 24 hr food supplemt, lactose-reduced 1 ea PO BID 12 days #5, 688 mL 01/20/23 (Ensure oral liquid) Allergies Allergy/AdvReac Type Severity Reaction Status Date / Time No Known Allergies Allergy Verified 10/17/24 19:26 Review of Systems 2 Review of Systems: Pertinent review of systems as mentioned in HPI. All other system otherwise negative. [facility] Past Medical History [facility] Narrative: Medical history as mentioned in HPI Medical History Marfan syndrome Alcohol use disorder PTSD (post-traumatic stress disorder) MDD (major depressive disorder), recurrent severe, without psychosis Family History Family History Mother Skin cancer Social History Social History Household Members: None Housing: Homeless Do you presently have visiting nurse or other home services: No Alcohol intake: current Alcohol intake frequency: 3 or more drinks per day Alcohol type: hard liquor Patient Tobacco Use Status: Never used Tobacco Smoked in Last 30 Days: No Second Hand Smoke Exposure: No Use of substances other than those prescribed or required for medical reasons: No Currently Displaying Signs/Symptoms of Drug Intoxication Withdrawal: No Have you been hit, kicked, punched, or otherwise hurt by someone within the past year? If so, by whom?: No Do you feel safe in your current relationship?: No Current Relationship Is there a partner from a previous relationship who is making you feel unsafe now?: No Are you made to feel afraid or neglected: No Advance Directives: No Advance Directives Information Provided: No Do you have thoughts of harming others: None Do you have a plan to hurt others: No Plan Recently lost weight without trying: Yes How much weight loss: 14-23 pounds Eating poorly because of decreased appetite: Yes Nutrition screen score: 5 Nutrition Risks: No Nutritional Risk Poor oral hygiene: No service: No Sexual orientation: Straight/Heterosexual Physical Exam 2 Exam: Exam: General: Pleasant, no distress, interacting appropriately Head: Normacephalic, atraumatic ENT: neck supple, no tracheal deviation Cardiovascular: regular rate, regular rhythm Neurological: Awake and alert, no facial droop noted Skin: Warm and dry Psychiatric: Endorses SI Vital Signs: Vital Signs: Last Vital Signs Temp 98.4 F 10/19/24 07:45 Pulse 69 10/19/24 12:50 Resp 16 10/19/24 07:45 BP 115/78 10/19/24 12:50 Pulse Ox 96 10/19/24 07:45 O2 Del Method Room Air 10/19/24 07:45 BMI result Body Mass Index 23.0 Course Course Course Narrative: This is an RME: Additional HPI, ROS, PE not included below will be deferred to primary provider. RME assessment and note performed by: Sandy Guy PA-C This is a [id number], with a hx of MDD, PTSD, Marfan's, CHELO, CTE, etoh abuse, who presents to the ER due to suicidal ideations. Reports that he has a plan but has not acted on this. Has been off meds for 1.5 years. Drinks daily - drank 1/4 gallon of vodka per day. Hx of etoh withdrawal - no hx of withdrawal seizures. Was d/c from [facility] for psych, d/c 4 days ago. Plan: Labs, EKG, care team, UA further ER eval needed Reevaluation(s) Reevaluation #1: I, Dr. Granados have take over the care of this patient, I reviewed pertinent blood work and imaging, re-evaluated the patient when appropriate. Time: : Reevaluation #2: Psych admitted Time: 11:20 Medications Administered Generic Name Dose Route Start Last Admin Trade Name Freq PRN Reason Stop Dose Admin Acetaminophen 650 mg 10/18/24 08:38 10/18/24 22:01 Acetaminophen 325 Mg Tablet PO 650 mg Q6H PRN Administration Headache/Pain, Scale 1-10 Al Hydroxide/Mg Hydroxide 30 ml 10/18/24 08:38 10/18/24 12:22 Magnesium Hydrox/Alum Hydrox 30 Ml Oral.Susp PO 30 ml Q6H PRN Administration Heartburn/Nausea Clonidine HCl 0.1 mg 10/18/24 08:40 10/19/24 12:52 Clonidine Hcl 0.1 Mg Tablet PO 0.1 mg TID PRN Administration Anxiety Protocol Lorazepam 1 mg 10/18/24 12:43 10/18/24 13:03 Lorazepam 1 Mg Tablet PO 1 mg Q2H PRN Administration CIWA 8-11 Naltrexone HCl 50 mg 10/18/24 09:00 10/19/24 08:40 Naltrexone Hcl 50 Mg Tablet PO 50 mg DAILY MICHAEL Administration Thiamine HCl 100 mg 10/19/24 09:00 10/19/24 08:40 Thiamine Hcl 100 Mg Tablet PO 100 mg DAILY MICHAEL Administration Trazodone HCl 50 mg 10/18/24 08:38 10/18/24 22:01 Trazodone Hcl 50 Mg Tablet PO 50 mg BEDTIME MRX1 PRN Administration Insomnia Venlafaxine HCl 75 mg 10/18/24 09:00 10/19/24 08:40 Venlafaxine Hcl Er 75 Mg Cap.Er.24h PO 75 mg DAILY MICHAEL Administration Discontinued Medications Generic Name Dose Route Start Last Admin Trade Name Jamie LIU Reason Stop Dose Admin Diazepam 10 mg 10/17/24 19:58 10/17/24 20:13 Diazepam 5 Mg Tablet PO 10/17/24 19:59 10 mg ONCE ONE Administration Diazepam 5 mg 10/18/24 00:31 10/18/24 00:36 Diazepam 5 Mg Tablet PO 10/18/24 00:32 5 mg ONCE ONE Administration Thiamine HCl 100 mg 10/17/24 19:58 10/17/24 20:13 Thiamine Hcl 100 Mg Tablet PO 10/17/24 19:59 100 mg ONCE ONE Administration Medical Decision Making Medical Decision Making [facility] Narrative: This is a 39-year-old male history of alcohol use disorder depression presented hospital today for evaluation of suicide ideation. Patient's alcohol level was elevated in the 200s. However patient states he does feel anxious. We will plan to give patient a small dose of p.o. Valium 5 mg. He does endorse slight tremors. However he is not tachycardic on exam. Triage vital signs did show tachycardia but at this time his heart rates in the 90s. Discussed the case with the crisis counselor. They will wait to patient's sober up more before evaluation. Basic lab will be obtained per protocol. CBC is unremarkable, chemistry does show slight transaminitis likely secondary to alcohol usage., patient's UA is unremarkable, positive for barbiturate. Ethanol level is 273. Crisis team has evaluated the patient. They recommend sectioning patient due to suicide ideation. Pending inpatient psychiatric bed at this time. Differential Diagnosis Differential Diagnoses: The differential diagnosis associated with the presentation includes Suicide ideation, depression, alcohol withdrawal, intoxication Consult Healthcare Provider CARE team Lab Data [facility] Lab Attestation statement: I reviewed the patient's lab results. 10/17/24 20:11 10/19/24 08:39 Labs: Lab Results 10/17/24 10/17/24 10/17/24 Range/Units 19:48 19:49 20:06 WBC (4.8-10.8) X10*3/uL RBC (4.60-5.80) X10*6/uL Hgb (14.0-18.0) g/dl Hct (42.0-52.0) % MCV (80.0-98.0) fL MCH (27.0-33.0) pg MCHC (31.0-36.0) g/dl RDW (11.0-16.0) % Plt Count (160-400) X10*3/uL MPV (9.4-12.4) fL Immature Gran % (Auto) (0.0-0.4) % Neut % (Auto) (45-73) % Lymph % (Auto) (20-40) % [place] % (Auto) (2-11) % Eos % (Auto) (0-4) % Baso % (Auto) (0-2) % Lymph # (Auto) (1.2-4.9) X10*3/uL [place] # (Auto) (0.1-1.2) X10*3/uL Eos # (Auto) (0.0-0.4) X10*3/uL Baso # (Auto) (0.0-0.2) X10*3/uL Abs Immat Gran (auto) (0.00-0.03) X10*3/uL Absolute Neuts (auto) (2.0-8.3) x10*3/uL Absolute Nucleated RBC (0.0-0.012) X10*3/uL Nucleated RBC % (auto) (0.0-0.2) /100WBC Sodium 142 (135-145) mmol/L Potassium 4.9 D (3.3-5.1) mmol/L Chloride 103 (96-108) mmol/L Carbon Dioxide 27 (22-29) mmol/L Anion Gap 17 (12-20) BUN 11 (9-16) mg/dL Creatinine 1.07 (0.5-1.4) mg/dL Estim Creat Clear Calc 105.3 Estimated GFR > 60 Random Glucose 99 (60-115) mg/dL Calcium 9.4 D (8.4-10.2) mg/dL Magnesium 2.3 (1.6-2.6) mg/dL Total Bilirubin 0.2 (0.0-1.0) mg/dL Direct Bilirubin < 0.2 (0.0-0.5) mg/dL AST 95 H (5-37) U/L ALT 161 H (0-40) U/L Alkaline Phosphatase 129 H (39-117) U/L Total Creatine Kinase 135 (38-174) U/L Total Protein 8.0 (6.5-8.0) g/dL Albumin 5.3 H (3.5-5.0) g/dL Lipase 29 (8-78) U/L Urine Color Yellow Urine Appearance Clear Urine pH 5.5 (5.0-9.0) Ur Specific [place] 1.025 (1.005-1.025) Urine Protein 30 (1+) H (Neg-Trace) mg/dL Urine Glucose (UA) Negative (Negative) mg/dL Urine Ketones Trace (Negative) mg/dL Urine Blood Negative (Negative) Urine Nitrite Negative (Negative) Ur Leukocyte Esterase Negative (Negative) Urine RBC 0-2 (0-2) /HPF Urine WBC 0-5 (0-5) /HPF Ur Squamous Epith Cells 0-2 (0-2) /HPF Urine Bacteria None Seen (None Seen) Hyaline Casts 0-2 (0-2) /LPF Urine Opiates Screen Not Detected (Not Detect) Ur Buprenorphine Scrn Not Detected (Not Detect) ng/mL Ur Oxycodone Screen Not Detected (Not Detect) ng/mL Urine Methadone Screen Not Detected (Not Detect) ng/mL Urine Fentanyl Screen Not Detected (Not Detect) Ur Barbiturates Screen POSITIVE H (Not Detect) Ur Phencyclidine Scrn Not Detected (Not Detect) Ur Amphetamines Screen Not Detected (Not Detect) U Benzodiazepines Scrn Not Detected (Not Detect) Urine Cocaine Screen Not Detected (Not Detect) U Marijuana (THC) Screen Not Detected (Not Detect) Ethyl Alcohol 273 mg/dL 10/17/24 Range/Units 20:11 WBC 6.4 (4.8-10.8) X10*3/uL RBC 4.84 (4.60-5.80) X10*6/uL Hgb 15.1 (14.0-18.0) g/dl Hct 43.4 (42.0-52.0) % MCV 89.7 (80.0-98.0) fL MCH 31.2 (27.0-33.0) pg MCHC 34.8 (31.0-36.0) g/dl RDW 14.9 (11.0-16.0) % Plt Count 293 (160-400) X10*3/uL MPV 9.3 L (9.4-12.4) fL Immature Gran % (Auto) 0.2 (0.0-0.4) % Neut % (Auto) 45.5 (45-73) % Lymph % (Auto) 37.8 (20-40) % [place] % (Auto) 9.8 (2-11) % Eos % (Auto) 4.2 H (0-4) % Baso % (Auto) 2.5 H (0-2) % Lymph # (Auto) 2.4 (1.2-4.9) X10*3/uL [place] # (Auto) 0.6 (0.1-1.2) X10*3/uL Eos # (Auto) 0.3 (0.0-0.4) X10*3/uL Baso # (Auto) 0.2 (0.0-0.2) X10*3/uL Abs Immat Gran (auto) 0.01 (0.00-0.03) X10*3/uL Absolute Neuts (auto) 2.9 (2.0-8.3) x10*3/uL Absolute Nucleated RBC 0.000 (0.0-0.012) X10*3/uL Nucleated RBC % (auto) 0.0 (0.0-0.2) /100WBC Sodium (135-145) mmol/L Potassium (3.3-5.1) mmol/L Chloride (96-108) mmol/L Carbon Dioxide (22-29) mmol/L Anion Gap (12-20) BUN (9-16) mg/dL Creatinine (0.5-1.4) mg/dL Estim Creat Clear Calc Estimated GFR Random Glucose (60-115) mg/dL Calcium (8.4-10.2) mg/dL Magnesium (1.6-2.6) mg/dL Total Bilirubin (0.0-1.0) mg/dL Direct Bilirubin (0.0-0.5) mg/dL AST (5-37) U/L ALT (0-40) U/L Alkaline Phosphatase (39-117) U/L Total Creatine Kinase (38-174) U/L Total Protein (6.5-8.0) g/dL Albumin (3.5-5.0) g/dL Lipase (8-78) U/L Urine Color Urine Appearance Urine pH (5.0-9.0) Ur Specific [place] (1.005-1.025) Urine Protein (Neg-Trace) mg/dL Urine Glucose (UA) (Negative) mg/dL Urine Ketones (Negative) mg/dL Urine Blood (Negative) Urine Nitrite (Negative) Ur Leukocyte Esterase (Negative) Urine RBC (0-2) /HPF Urine WBC (0-5) /HPF Ur Squamous Epith Cells (0-2) /HPF Urine Bacteria (None Seen) Hyaline Casts (0-2) /LPF Urine Opiates Screen (Not Detect) Ur Buprenorphine Scrn (Not Detect) ng/mL Ur Oxycodone Screen (Not Detect) ng/mL Urine Methadone Screen (Not Detect) ng/mL Urine Fentanyl Screen (Not Detect) Ur Barbiturates Screen (Not Detect) Ur Phencyclidine Scrn (Not Detect) Ur Amphetamines Screen (Not Detect) U Benzodiazepines Scrn (Not Detect) Urine Cocaine Screen (Not Detect) U Marijuana (THC) Screen (Not Detect) Ethyl Alcohol mg/dL Social Determinants Alcohol usage Discharge Plan Discharge Clinical Impression: Alcohol use disorder, MDD (major depressive disorder), recurrent severe, without psychosis Patient Disposition: Admitted As Inpatient Interventions: Admission Worksheet (ED) Last Done: 10/18/24 12:21 Discharge Date/Time: 10/18/24 12:22
--- NOTE | 2024-10-17 19:29 | ECG_ITS ---
Test Reason : M ED CLEARANCE Blood Pressure : */* mmHG Vent. Rate : 88 BPM Atrial Rate : 88 BPM P-R Int : 174 ms QRS Dur : 88 ms QT Int : 346 ms P-R-T Axes : 53 39 59 degrees QTcB Int : 418 ms Artifact in tracing Poor data quality, interpretation may be adversely affected Normal sinus rhythm Normal ECG No previous ECGs available Referred By: Sandy Guy Electronically Signed By: SUSI DONALD
--- NOTE | 2024-10-17 19:42 | PC.NURSE ---
Assumed care of patient at approximately 1935. 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 Pt reports her has been drinking 1.5 gallons of vodka daily for the past 1-2 years. Hx of detoxing in the past. no seizures. Pt has been going to [facility] and [facility] ER, pr pt report. to try to get a bed but has not been admitted due to insurance issues. Pt reports he was on medications before he started drinking again and would like to get back on medications. Pt feels hopeless at times but denies SI. Denies HI. Reports moderate depression and anxiety. MD made aware of patient's alcohol use
--- OUTSIDE RECORDS SUMMARY | 2024-10-17 19:52 | XMS_ITS | Patient Health Record ---
Author Organization [facility] Address [address], [place] [id number] Care Team Providers Care Tax Lawyer Name Role Phone Ruchi Franklin Primary Care Provider [phone] Allergies No Known Allergies Reason For Referral [...] [phone] Heplisav-B IM Intramuscular 04/19/2023 Administered [facility] [id number] Heplisav-B IM Intramuscular 05/18/2023 Administered [facility] [id number] Social History Tobacco Use: Social History Observation Description Date Details (start date - stop date) Light tobacco s moker NA - NA Tobacco Use Assessment MU Question Answer Notes What is your current smoking status? light tobac co smoker smokes cigars Problems Problem Type SNOMED Code ICD Code Onset Dates Problem Status W/U Status Risk Notes Problem Vitamin D deficiency (62799601) Vitamin D deficiency, unspecified (E55.9) Active confirmed Problem Tobacco user (889068974) Nicotine dependence, other tobacco product, uncomplicated (F17.290) Active confirmed Problem Cervical radiculopathy (13776409) Radiculopathy, cervical region (M54.12) Active confirmed Problem Marfan's syndrome (17563860) Marfan's syndrome with skeletal manifestation (Q87.43) Active confirmed Problem Body mass index 20-24 - normal (937329767) Body mass index [BMI] 24.0-24.9, adult (Z68.24) Active confirmed Problem Low back pain (720466959) Low back pain, unspecified (M54.50) Active confirmed Problem Sheltered homelessness (421889998951314) Sheltered homelessness (Z59.01) Active confirmed Problem Current drinker of alcohol (finding) (102402) Alcohol use, unspecified, uncomplicated (F10.90) Active confirmed Encounters Encounter Location Date Provider Diagnosis [facility] [address], [place] [id number] 11/20/2023 Ruchi Franklin [facility] [address], [place] [id number] 11/24/2023 Ruchi Franklin Assessments Encounter Date Diagnosis (ICD Code) Assessment Notes Treatment Notes Treatment Clinical Notes Section Notes 04/02/2024 Other Plan Of Treatment Pending Test Test Name Order Date HEPATITIS A,B,C PROFILE 03/30/2023 Insurance Providers Payer Name Payer Address Payer Phone Subscriber Number Group Number Insured Name Patient Relationship to Insured Coverage Start Date Coverage End Date [place] Medicaid C3 [address] [place], [place] [id number] [phone] [id number] Igor Briseno Self - patient is the insured 3 Medical (General) History Medical History History ICD Code ADHD Social Anxiety Disorder PTSD ETOH abuse Marphan's Syndrome anxiety depression Hospitalization History Reason Date(Month/Year) Multiple Psych/Detox admits 2 x in [facility] and 1 x at [facility]
--- NOTE | 2024-10-17 19:54 | PC.NURSE ---
pt reports new onset numbness in his right from [place] that started a few weeks ago
[2024-10-17 20:09] LABS: Lipase 29 U/L (8-78); Magnesium 2.3 mg/dL (1.6-2.6)
[2024-10-17 20:11] LABS: Alanine Aminotransferase 161 U/L (0-40); Albumin Level 5.3 g/dL (3.5-5.0); Alkaline Phosphatase 129 U/L (39-117); Anion Gap 17 (12-20); Aspartate Amino Transferase 95 U/L (5-37); Blood Urea Nitrogen 11 mg/dL (9-16); Calcium 9.4 mg/dL (8.4-10.2); Carbon Dioxide 27 mmol/L (22-29); Chloride 103 mmol/L (96-108); Creatinine Clr Calc Pharmacy 105.3; Estimated Glomerular Filt Rate > 60; Potassium 4.9 mmol/L (3.3-5.1); Sodium 142 mmol/L (135-145); Total Protein 8.0 g/dL (6.5-8.0)
--- NOTE | 2024-10-17 20:13 | MHC.CARE ---
t/w spoke to [facility] to gather collateral, who reported patient assessed on 10/10/24 and met critieria for IPLOC, however patient was assessed by psychiatry and cleared on 10/12/24. Patient has a hx of 1 SI attempt as a teenager.
--- NOTE | 2024-10-17 20:15 | PC.NURSE ---
Pt has a BAL of 273. RN contacted MD Matthieu Maynard. Valium 10mg and Thiamine given at 2013. Pt requested RN to call Lesli ramirez to let her know he is safe. Sister's phone number placed in chart. Pts Lesli ramirez did not answer. Pt gave RN verbal permission to leave a voicemail to let sister know he is at [facility] ER and is safe. RN left voicemail with sister.
[2024-10-17 20:17] LABS: Hematocrit 43.4 % (42.0-52.0); Hemoglobin 15.1 g/dl (14.0-18.0); Imm Gran Abs Auto 0.01 X10*3/uL (0.00-0.03); Imm Gran Pct Auto 0.2 % (0.0-0.4); Lymphocytes Absolute Auto 2.4 X10*3/uL (1.2-4.9); Mean Corpuscular HGB Conc 34.8 g/dl (31.0-36.0); Mean Corpuscular Hemoglobin 31.2 pg (27.0-33.0); Mean Corpuscular Volume 89.7 fL (80.0-98.0); NRBC Abs Auto 0.000 X10*3/uL (0.0-0.012); NRBC Pct Auto 0.0 /100WBC (0.0-0.2); Platelet Count 293 X10*3/uL (160-400); Red Blood Count 4.84 X10*6/uL (4.60-5.80); White Blood Count 6.4 X10*3/uL (4.8-10.8)
[2024-10-17 20:17] LABS: Appearance Urine Clear; Glucose Urine UA Negative (Negative); PH 5.5 (5.0-9.0); Specific Gravity - Urine 1.025 (1.005-1.025)
[2024-10-17 20:18] LABS: UMIC TRIGGER UACC YES
[2024-10-17 20:26] LABS: Cannabinoid Screen Urine Not Detected (Not Detect)
[2024-10-17 20:28] LABS: MANUAL DIFF FLAG NO
[2024-10-18] VITALS (7 sets, daily range): BP systolic 130–140; BP diastolic 83–95; PULSE 75–108; RESP 16–20; TEMP 36.6–37.1; O2SAT 97–100; BMI 21.5
--- NOTE | 2024-10-18 07:21 | PC.NURSE ---
Assumed care, report recieved. Pt is awake and eating breakfast, POC to continue for an Adult bed search.
[2024-10-18] MEDS: Venlafaxine HCl ER 75 MG CAP.ER.24H PO (09:40)
[2024-10-18] MEDS: Magnesium Hydrox/Alum Hydrox 30 ML ORAL.SUSP PO (12:22)
--- NOTE | 2024-10-18 14:32 | MHC.CLN ---
CONSULT REVIEW OF WEIGHT HX SHOWS WEIGHT GAIN X 6 MONTHS +8.4%. WEIGHT LOSS REPORTED UPON ADMISSION BUT UNABLE TO VERIFY. PATIENT WITH HX ETOH ABUSE. ANTICIPATE IMPROVED PO INTAKE IN CONTROLLED ENVIRONMENT. PLEASE CONSULT RD IF PO POOR DURING ADM.
--- NOTE | 2024-10-18 16:09 | HO.PSYADMNOT ---
HPI Date of Service: 10/18/24 Chief Complaint: worsening depressive symptoms Sources of Information: patient interviewed, chart reviewed and crisis/core team assessment reviewed HPI Subjective Notes: Sol Warning and Conditional Voluntary Narrative: Patient is a 39-year-old male with history of MDD, PTSD and alcohol use disorder who self presented to ER due to suicidal ideation secondary to worsening depression, anxiety and homelessness. Per crisis report, patient reports worsening depression, anxiety and homelessness. Patient reports losing his housing last month and has been staying in the [place] since and eating what he can. Patient reports he has not been on his medication for awhile due to lack of insurance but states he was able to fill his prescription yesterday. Patient was discharged from [facility] psychiatric unit yesterday; patient reports he was also at [facility] but was unable to provide specific dates. Patient denies HI/VH/AH. He reported suicidal ideation with no plan or intent. He reports poor sleep. Patient reports passive SI at baseline. History of going to [facility] 6 months ago and [facility] last year. Utox positive for barbiturates. BAL 273. Negative for all other substances. During admission assessment, patient presents alert and oriented x3. Calm and cooperative. Patient reports feeling depressed ; patient stated, I was discharged 3 days ago from [facility] for alcohol abuse and suicidal thoughts. I didn't have insurance but now I do. I only took the clonidine because I was still drinking alcohol at the time. I want to go to a substance abuse program . Patient reports he always feels suicidal . Patient stated, I always have suicidal thoughts but I have no desire to act on it . Patient denies plan or intent. Patient stated, I came here to seek help . Patient denies HI/VH/AH. Patient reports drinking a half a gallon of vodka daily for the last 3 days. Patient denies any other substance use. He does not have outpatient psychiatric providers at this time but would like referrals. He reports sleep and appetite have been poor d/t drinking alcohol. Past Psychiatric History: History of 3 prior inpatient psychiatric hospitalizations. Does not have outpatient psychiatric providers at this time. hx of suicide attempt 1 time when he was 15y/o. limited med trials: zoloft, cymbalta: not therapeutic dose/duration Stattera: helpful for ADHD clonidine: helpful Naltrexone: helpful to curb cravings Medical Evaluation Reviewed: Yes [facility] Medical History Marfan syndrome Alcohol use disorder PTSD (post-traumatic stress disorder) MDD (major depressive disorder), recurrent severe, without psychosis Family History: Father: depression, alcoholism Mother: depression Social History: currently homeless and been couch hoping. . no kids. unemployed. high school diploma. Substance History: Patient reports he has been drinking half a gallon of vodka daily. Denies all other substance use. Trauma History: yes Diagnostics Vital Signs (24Hr): Vital Signs - 24 hr 10/17/24 19:23 10/18/24 00:33 10/18/24 06:16 Temperature 97.3 F Pulse Rate 122 H 108 H Respiratory Rate 20 20 16 Blood Pressure 141/87 H 140/86 H Pulse Oximetry 95 100 Oxygen Delivery Method Room Air Room Air 10/18/24 07:21 10/18/24 12:22 10/18/24 12:57 Temperature 98.8 F 97.8 F Pulse Rate 77 75 Respiratory Rate 16 18 Blood Pressure 138/93 H 139/95 H 139/95 H Pulse Oximetry 98 97 Oxygen Delivery Method Room Air Room Air BMI result Body Mass Index 21.5 Labs 10/17/24 20:11 10/17/24 19:48 Labs: Laboratory Results - last 48 hr 10/17/24 10/17/24 10/17/24 19:48 19:49 20:06 WBC RBC Hgb Hct MCV MCH MCHC RDW Plt Count MPV Immature Gran % (Auto) Neut % (Auto) Lymph % (Auto) George % (Auto) Eos % (Auto) Baso % (Auto) Lymph # (Auto) George # (Auto) Eos # (Auto) Baso # (Auto) Abs Immat Gran (auto) Absolute Neuts (auto) Absolute Nucleated RBC Nucleated RBC % (auto) Sodium 142 Potassium 4.9 D Chloride 103 Carbon Dioxide 27 Anion Gap 17 BUN 11 Creatinine 1.07 Estim Creat Clear Calc 105.3 Estimated GFR > 60 Random Glucose 99 Calcium 9.4 D Magnesium 2.3 Total Bilirubin 0.2 Direct Bilirubin < 0.2 AST 95 H ALT 161 H Alkaline Phosphatase 129 H Total Creatine Kinase 135 Total Protein 8.0 Albumin 5.3 H Lipase 29 Urine Color Yellow Urine Appearance Clear Urine pH 5.5 Ur Specific [place] 1.025 Urine Protein 30 (1+) H Urine Glucose (UA) Negative Urine Ketones Trace Urine Blood Negative Urine Nitrite Negative Ur Leukocyte Esterase Negative Urine RBC 0-2 Urine WBC 0-5 Ur Squamous Epith Cells 0-2 Urine Bacteria None Seen Hyaline Casts 0-2 Urine Opiates Screen Not Detected Ur Buprenorphine Scrn Not Detected Ur Oxycodone Screen Not Detected Urine Methadone Screen Not Detected Urine Fentanyl Screen Not Detected Ur Barbiturates Screen POSITIVE H Ur Phencyclidine Scrn Not Detected Ur Amphetamines Screen Not Detected U Benzodiazepines Scrn Not Detected Urine Cocaine Screen Not Detected U Marijuana (THC) Screen Not Detected Ethyl Alcohol 273 10/17/24 20:11 WBC 6.4 RBC 4.84 Hgb 15.1 Hct 43.4 MCV 89.7 MCH 31.2 MCHC 34.8 RDW 14.9 Plt Count 293 MPV 9.3 L Immature Gran % (Auto) 0.2 Neut % (Auto) 45.5 Lymph % (Auto) 37.8 George % (Auto) 9.8 Eos % (Auto) 4.2 H Baso % (Auto) 2.5 H Lymph # (Auto) 2.4 George # (Auto) 0.6 Eos # (Auto) 0.3 Baso # (Auto) 0.2 Abs Immat Gran (auto) 0.01 Absolute Neuts (auto) 2.9 Absolute Nucleated RBC 0.000 Nucleated RBC % (auto) 0.0 Sodium Potassium Chloride Carbon Dioxide Anion Gap BUN Creatinine Estim Creat Clear Calc Estimated GFR Random Glucose Calcium Magnesium Total Bilirubin Direct Bilirubin AST ALT Alkaline Phosphatase Total Creatine Kinase Total Protein Albumin Lipase Urine Color Urine Appearance Urine pH Ur Specific [place] Urine Protein Urine Glucose (UA) Urine Ketones Urine Blood Urine Nitrite Ur Leukocyte Esterase Urine RBC Urine WBC Ur Squamous Epith Cells Urine Bacteria Hyaline Casts Urine Opiates Screen Ur Buprenorphine Scrn Ur Oxycodone Screen Urine Methadone Screen Urine Fentanyl Screen Ur Barbiturates Screen Ur Phencyclidine Scrn Ur Amphetamines Screen U Benzodiazepines Scrn Urine Cocaine Screen U Marijuana (THC) Screen Ethyl Alcohol Meds/Allergies Allergies Allergies Allergy/AdvReac Type Severity Reaction Status Date / Time No Known Allergies Allergy Verified 10/17/24 19:26 Mental Status Exam Mental Status Exam Narrative: Pt is alert and oriented; behavior is cooperative and calm; dressed in casual attire; mood is described as depressed ; eye contact appropriate; Speech is normal rate, volume and not pressured; thought process is organized and goal directed; Thought content is on tx; denies HI/VH/AH. Patient reports passive suicidal ideation with no plan or intent. Assessment & Plan Assessment & Plan (1) MDD (major depressive disorder), recurrent severe, without psychosis: Status: Acute Code(s): F33.2 - Major depressive disorder, recurrent severe without psychotic features (2) PTSD (post-traumatic stress disorder): Status: Acute Code(s): F43.10 - Post-traumatic stress disorder, unspecified (3) Alcohol use disorder: Status: Acute Code(s): F10.90 - Alcohol use, unspecified, uncomplicated Plan Patient is a 39-year-old male with history of MDD, PTSD and alcohol use disorder who self presented to ER due to suicidal ideation secondary to worsening depression, anxiety and homelessness. Plan: CV 15 minute safety checks Continue home medications CIWA protocol Encourage groups Referral to outpatient psychiatric providers Referral to substance abuse program Discharge planning Patient educated on: diagnosis and medication risk/benefits Reason for continued inpatient stay Substantial Risk for: harm to self and med/psych decompensation Statement Statement: I have reviewed the history and physical and performed a pertinent examination on my patient. No changes have occurred unless specified. If the History and Physical was not performed prior to admission, the Hospitalist's service will be consulted for completing the admission physical. Time Spent With Patient Time: Total time managing care of this patient today _60___ minutes.
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
[2024-10-19 07:45] VITALS: BP 124/80; PULSE 85; RESP 16; TEMP 36.9; O2SAT 96
[2024-10-19] MEDS: Venlafaxine HCl ER 75 MG CAP.ER.24H PO (08:40)
[2024-10-19 09:50] LABS: Hemoglobin A1C 132.9221 umol/L; Total Hemoglobin (HGBA1C) 3940.9708 umol/L
[2024-10-19 09:58] LABS: Alanine Aminotransferase 122 U/L (0-40); Albumin Level 4.5 g/dL (3.5-5.0); Alkaline Phosphatase 113 U/L (39-117); Anion Gap 12 (12-20); Aspartate Amino Transferase 79 U/L (5-37); Blood Urea Nitrogen 7 mg/dL (9-16); Calcium 9.4 mg/dL (8.4-10.2); Carbon Dioxide 29 mmol/L (22-29); Chloride 103 mmol/L (96-108); Cholesterol 248 mg/dL (<200); Creatinine Clr Calc Pharmacy 127.2; Estimated Glomerular Filt Rate > 60; HDL Cholesterol 78 mg/dL (>40); Potassium 4.2 mmol/L (3.3-5.1); Sodium 140 mmol/L (135-145); Total Protein 7.1 g/dL (6.5-8.0); Triglycerides 96 mg/dL (<150)
[2024-10-19 10:12] LABS: Free T4 (Free Thyroxine) 0.89 ng/dL (0.71-1.85); Thyroid Stimulating Hormone 1.71 uIU/mL (0.32-4.0)
[2024-10-19 12:50] VITALS: BP 115/78; PULSE 69
--- NOTE | 2024-10-19 14:23 | HO.PSYCHPN ---
Subjective Subjective Date of Service: 10/19/24 Reason For Visit: worsening depressive symptoms Subjective Notes: Conditional Voluntary Interim History: Laying in bed sleeping most of morning. Patient reports feeling better today; he reports withdrawal symptoms have decreased. Reports sleeping well last night. denies SI/HI/VH/AH. Continue current tx plan. Medication Compliance: Yes Side effects from medications: No Attending Groups: No Mental Status Exam Mental Status Exam Narrative: Pt is alert and oriented; behavior is cooperative and calm; dressed in casual attire; mood is described as better ; eye contact appropriate; Speech is normal rate, volume and not pressured; thought process is organized and goal directed; Thought content is on tx; denies SI/HI/VH/AH. Diagnostics Vital Signs (24Hr): Vital Signs - 24 hr 10/18/24 19:47 10/18/24 22:01 10/19/24 07:45 Temperature 98.5 F 98.4 F Pulse Rate 82 85 Respiratory Rate 16 16 Blood Pressure 130/83 135/86 124/80 Pulse Oximetry 97 96 Oxygen Delivery Method Room Air Room Air 10/19/24 12:50 Temperature Pulse Rate 69 Respiratory Rate Blood Pressure 115/78 Pulse Oximetry Oxygen Delivery Method BMI result Body Mass Index 21.5 Labs 10/17/24 20:11 10/19/24 08:39 Labs: Laboratory Results - last 48 hr 10/17/24 10/17/24 10/17/24 19:48 19:49 20:06 WBC RBC Hgb Hct MCV MCH MCHC RDW Plt Count MPV Immature Gran % (Auto) Neut % (Auto) Lymph % (Auto) [place] % (Auto) Eos % (Auto) Baso % (Auto) Lymph # (Auto) [place] # (Auto) Eos # (Auto) Baso # (Auto) Abs Immat Gran (auto) Absolute Neuts (auto) Absolute Nucleated RBC Nucleated RBC % (auto) Sodium 142 Potassium 4.9 D Chloride 103 Carbon Dioxide 27 Anion Gap 17 BUN 11 Creatinine 1.07 Estim Creat Clear Calc 105.3 Estimated GFR > 60 Random Glucose 99 Estimat Average Glucose Hemoglobin A1c % Calcium 9.4 D Magnesium 2.3 Total Bilirubin 0.2 Direct Bilirubin < 0.2 AST 95 H ALT 161 H Alkaline Phosphatase 129 H Total Creatine Kinase 135 Total Protein 8.0 Albumin 5.3 H Triglycerides Cholesterol LDL Cholesterol, Calc HDL Cholesterol Lipase 29 TSH Free T4 Urine Color Yellow Urine Appearance Clear Urine pH 5.5 Ur Specific [place] 1.025 Urine Protein 30 (1+) H Urine Glucose (UA) Negative Urine Ketones Trace Urine Blood Negative Urine Nitrite Negative Ur Leukocyte Esterase Negative Urine RBC 0-2 Urine WBC 0-5 Ur Squamous Epith Cells 0-2 Urine Bacteria None Seen Hyaline Casts 0-2 Urine Opiates Screen Not Detected Ur Buprenorphine Scrn Not Detected Ur Oxycodone Screen Not Detected Urine Methadone Screen Not Detected Urine Fentanyl Screen Not Detected Ur Barbiturates Screen POSITIVE H Ur Phencyclidine Scrn Not Detected Ur Amphetamines Screen Not Detected U Benzodiazepines Scrn Not Detected Urine Cocaine Screen Not Detected U Marijuana (THC) Screen Not Detected Ethyl Alcohol 273 10/17/24 10/19/24 20:11 08:39 WBC 6.4 RBC 4.84 Hgb 15.1 Hct 43.4 MCV 89.7 MCH 31.2 MCHC 34.8 RDW 14.9 Plt Count 293 MPV 9.3 L Immature Gran % (Auto) 0.2 Neut % (Auto) 45.5 Lymph % (Auto) 37.8 [place]ke % (Auto) 9.8 Eos % (Auto) 4.2 H Baso % (Auto) 2.5 H Lymph # (Auto) 2.4 [place]ke # (Auto) 0.6 Eos # (Auto) 0.3 Baso # (Auto) 0.2 Abs Immat Gran (auto) 0.01 Absolute Neuts (auto) 2.9 Absolute Nucleated RBC 0.000 Nucleated RBC % (auto) 0.0 Sodium 140 Potassium 4.2 Chloride 103 Carbon Dioxide 29 Anion Gap 12 BUN 7 L Creatinine 0.83 Estim Creat Clear Calc 127.2 Estimated GFR > 60 Random Glucose 112 Estimat Average Glucose 103 Hemoglobin A1c % 5.2 Calcium 9.4 Magnesium Total Bilirubin 0.6 Direct Bilirubin AST 79 H ALT 122 H Alkaline Phosphatase 113 Total Creatine Kinase Total Protein 7.1 Albumin 4.5 Triglycerides 96 Cholesterol 248 H LDL Cholesterol, Calc 151 H HDL Cholesterol 78 Lipase TSH 1.71 Free T4 0.89 Urine Color Urine Appearance Urine pH Ur Specific [place] Urine Protein Urine Glucose (UA) Urine Ketones Urine Blood Urine Nitrite Ur Leukocyte Esterase Urine RBC Urine WBC Ur Squamous Epith Cells Urine Bacteria Hyaline Casts Urine Opiates Screen Ur Buprenorphine Scrn Ur Oxycodone Screen Urine Methadone Screen Urine Fentanyl Screen Ur Barbiturates Screen Ur Phencyclidine Scrn Ur Amphetamines Screen U Benzodiazepines Scrn Urine Cocaine Screen U Marijuana (THC) Screen Ethyl Alcohol Medications Medications Current Medications Acetaminophen (Acetaminophen 325 Mg Tablet) 650 mg PO Q6H PRN PRN Reason: Headache/Pain, Scale 1-10 Last Admin: 10/18/24 22:01 Dose: 650 mg Al Hydroxide/Mg Hydroxide (Magnesium Hydrox/Alum Hydrox 30 Ml Oral.Susp) 30 ml PO Q6H PRN PRN Reason: Heartburn/Nausea Last Admin: 10/18/24 12:22 Dose: 30 ml Clonidine HCl (Clonidine Hcl 0.1 Mg Tablet) 0.1 mg PO TID PRN; Protocol PRN Reason: Anxiety Last Admin: 10/19/24 12:52 Dose: 0.1 mg Cyclobenzaprine HCl (Cyclobenzaprine Hcl 5 Mg Tablet) 5 mg PO DAILY PRN PRN Reason: Muscle Spasm Hydroxyzine HCl (Hydroxyzine Hcl 25 Mg Tablet) 25 mg PO Q6H PRN PRN Reason: mild anxiety Loperamide HCl (Loperamide Hcl 2 Mg Capsule) 2 mg PO Q6H PRN PRN Reason: Loose Stool Lorazepam (Lorazepam 1 Mg Tablet) 1 mg PO Q2H PRN PRN Reason: CIWA 8-11 Last Admin: 10/18/24 13:03 Dose: 1 mg Lorazepam (Lorazepam 1 Mg Tablet) 2 mg PO Q2H PRN PRN Reason: CIWA 12-15 Lorazepam (Lorazepam 1 Mg Tablet) 3 mg PO Q2H PRN PRN Reason: CIWA > 15, and call Magnesium Hydroxide (Milk Of Magnesia 30 Ml Oral.Susp) 30 ml PO DAILY PRN PRN Reason: Constipation Naltrexone HCl (Naltrexone Hcl 50 Mg Tablet) 50 mg PO DAILY MICHAEL Last Admin: 10/19/24 08:40 Dose: 50 mg Nicotine (Nicotine 21 Mg Patch.Td24) 21 mg TRANSDERMA DAILY PRN PRN Reason: nicotine craving Nicotine Polacrilex (Nicotine Polacrilex 2 Mg Gum) 2 mg BUCCAL Q2H PRN PRN Reason: Nicotine Cravings Non-Formulary Medication (Atomoxetine) 80 mg PO DAILY [facility] Olanzapine (Olanzapine 5 Mg Tablet) 5 mg PO BID PRN PRN Reason: agitation Ondansetron HCl (Ondansetron Odt 8 Mg Tab.Rapdis) 8 mg TRANSLINGU Q12H PRN PRN Reason: Nausea and Vomiting Thiamine HCl (Thiamine Hcl 100 Mg Tablet) 100 mg PO DAILY MICHAEL Last Admin: 10/19/24 08:40 Dose: 100 mg Trazodone HCl (Trazodone Hcl 50 Mg Tablet) 50 mg PO BEDTIME MRX1 PRN PRN Reason: Insomnia Last Admin: 10/18/24 22:01 Dose: 50 mg Venlafaxine HCl (Venlafaxine Hcl Er 75 Mg Cap.Er.24h) 75 mg PO DAILY MICHAEL Last Admin: 10/19/24 08:40 Dose: 75 mg Allergies Allergies Allergy/AdvReac Type Severity Reaction Status Date / Time No Known Allergies Allergy Verified 10/17/24 19:26 Assessment & Plan Assessment & Plan (1) MDD (major depressive disorder), recurrent severe, without psychosis: Status: Acute Code(s): F33.2 - Major depressive disorder, recurrent severe without psychotic features (2) PTSD (post-traumatic stress disorder): Status: Acute Code(s): F43.10 - Post-traumatic stress disorder, unspecified (3) Alcohol use disorder: Status: Acute Code(s): F10.90 - Alcohol use, unspecified, uncomplicated Plan Patient is a 39-year-old male with history of MDD, PTSD and alcohol use disorder who self presented to ER due to suicidal ideation secondary to worsening depression, anxiety and homelessness. Plan: CV 15 minute safety checks Continue home medications CIWA protocol Encourage groups Referral to outpatient psychiatric providers Referral to substance abuse program Discharge planning 10/19: Laying in bed sleeping most of morning. Patient reports feeling better today; he reports withdrawal symptoms have decreased.Continue CIWA. Reports sleeping well last night. denies SI/HI/VH/AH. Continue current tx plan. Patient educated on: diagnosis, medication risk/benefits and therapeutic strategies Reason for continued inpatient stay Substantial Risk for: med/psych decompensation Time Spent With Patient Time: Total time managing care of this patient today _20___ minutes.
[2024-10-19 19:27] VITALS: BP 123/85; PULSE 67; RESP 16; TEMP 36.8; O2SAT 99
[2024-10-19 22:06] VITALS: BP 133/91
[2024-10-20 07:44] VITALS: BP 114/63; PULSE 57; RESP 14; TEMP 36.6; O2SAT 96
--- NOTE | 2024-10-20 08:31 | P.PNPSI_ITS ---
Subjective Subjective Date of Service: 10/20/24 Reason For Visit: worsening depressive symptoms Subjective Notes: Conditional Voluntary Interim History: Laying in bed. keeping to self. Patient reports feeling okay today; denies withdrawal symptomsFRANK. Patient reports he is hoping to get into a program. denies SI/HI/VH/AH. Encouraged to get out of bed. Continue current tx plan. Medication Compliance: Yes Side effects from medications: No Attending Groups: No Mental Status Exam Mental Status Exam Narrative: Pt is alert and oriented; behavior is cooperative and calm; dressed in casual attire; mood is described as okay ; eye contact appropriate; Speech is normal rate, volume and not pressured; thought process is organized and goal directed; Thought content is on tx; denies SI/HI/VH/AH. Diagnostics Vital Signs (24Hr): Vital Signs - 24 hr 10/19/24 12:50 10/19/24 19:27 10/19/24 22:06 Temperature 98.3 F Pulse Rate 69 67 Respiratory Rate 16 Blood Pressure 115/78 123/85 133/91 H Pulse Oximetry 99 Oxygen Delivery Method Room Air 10/20/24 07:44 Temperature 97.8 F Pulse Rate 57 Respiratory Rate 14 Blood Pressure 114/63 Pulse Oximetry 96 Oxygen Delivery Method Room Air BMI result Body Mass Index 21.5 Labs 10/17/24 20:11 10/19/24 08:39 Labs: Laboratory Results - last 48 hr 10/19/24 08:39 Sodium 140 Potassium 4.2 Chloride 103 Carbon Dioxide 29 Anion Gap 12 BUN 7 L Creatinine 0.83 Estim Creat Clear Calc 127.2 Estimated GFR > 60 Random Glucose 112 Estimat Average Glucose 103 Hemoglobin A1c % 5.2 Calcium 9.4 Total Bilirubin 0.6 AST 79 H ALT 122 H Alkaline Phosphatase 113 Total Protein 7.1 Albumin 4.5 Triglycerides 96 Cholesterol 248 H LDL Cholesterol, Calc 151 H HDL Cholesterol 78 TSH 1.71 Free T4 0.89 Medications Medications Current Medications Acetaminophen (Acetaminophen 325 Mg Tablet) 650 mg PO Q6H PRN PRN Reason: Headache/Pain, Scale 1-10 Last Admin: 10/19/24 22:06 Dose: 650 mg Al Hydroxide/Mg Hydroxide (Magnesium Hydrox/Alum Hydrox 30 Ml Oral.Susp) 30 ml PO Q6H PRN PRN Reason: Heartburn/Nausea Last Admin: 08/29/25 12:22 Dose: 30 ml Clonidine HCl (Clonidine Hcl 0.1 Mg Tablet) 0.1 mg PO TID PRN; Protocol PRN Reason: Anxiety Last Admin: 10/19/24 22:06 Dose: 0.1 mg Cyclobenzaprine HCl (Cyclobenzaprine Hcl 5 Mg Tablet) 5 mg PO DAILY PRN PRN Reason: Muscle Spasm Hydroxyzine HCl (Hydroxyzine Hcl 25 Mg Tablet) 25 mg PO Q6H PRN PRN Reason: mild anxiety Loperamide HCl (Loperamide Hcl 2 Mg Capsule) 2 mg PO Q6H PRN PRN Reason: Loose Stool Lorazepam (Lorazepam 1 Mg Tablet) 1 mg PO Q2H PRN PRN Reason: CIWA 8-11 Last Admin: 10/18/24 13:03 Dose: 1 mg Lorazepam (Lorazepam 1 Mg Tablet) 2 mg PO Q2H PRN PRN Reason: CIWA 12-15 Lorazepam (Lorazepam 1 Mg Tablet) 3 mg PO Q2H PRN PRN Reason: CIWA > 15, and call Magnesium Hydroxide (Milk Of Magnesia 30 Ml Oral.Susp) 30 ml PO DAILY PRN PRN Reason: Constipation Naltrexone HCl (Naltrexone Hcl 50 Mg Tablet) 50 mg PO DAILY [facility] Last Admin: 10/19/24 08:40 Dose: 50 mg Nicotine (Nicotine 21 Mg Patch.Td24) 21 mg TRANSDERMA DAILY PRN PRN Reason: nicotine craving Nicotine Polacrilex (Nicotine Polacrilex 2 Mg Gum) 2 mg BUCCAL Q2H PRN PRN Reason: Nicotine Cravings Non-Formulary Medication (Atomoxetine) 80 mg PO DAILY [facility] Olanzapine (Olanzapine 5 Mg Tablet) 5 mg PO BID PRN PRN Reason: agitation Ondansetron HCl (Ondansetron Odt 8 Mg Tab.Rapdis) 8 mg TRANSLINGU Q12H PRN PRN Reason: Nausea and Vomiting Thiamine HCl (Thiamine Hcl 100 Mg Tablet) 100 mg PO DAILY [facility] Last Admin: 10/19/24 08:40 Dose: 100 mg Trazodone HCl (Trazodone Hcl 50 Mg Tablet) 50 mg PO BEDTIME MRX1 PRN PRN Reason: Insomnia Last Admin: 10/19/24 22:06 Dose: 50 mg Venlafaxine HCl (Venlafaxine Hcl Er 75 Mg Cap.Er.24h) 75 mg PO DAILY [facility] Last Admin: 10/19/24 08:40 Dose: 75 mg Allergies Allergies Allergy/AdvReac Type Severity Reaction Status Date / Time No Known Allergies Allergy Verified 10/17/24 19:26 Assessment & Plan Assessment & Plan (1) MDD (major depressive disorder), recurrent severe, without psychosis: Status: Acute Code(s): F33.2 - Major depressive disorder, recurrent severe without psychotic features (2) PTSD (post-traumatic stress disorder): Status: Acute Code(s): F43.10 - Post-traumatic stress disorder, unspecified (3) Alcohol use disorder: Status: Acute Code(s): F10.90 - Alcohol use, unspecified, uncomplicated Plan Patient is a 39-year-old male with history of MDD, PTSD and alcohol use disorder who self presented to ER due to suicidal ideation secondary to worsening depression, anxiety and homelessness. Plan: CV 15 minute safety checks Continue home medications CIWA protocol Encourage groups Referral to outpatient psychiatric providers Referral to substance abuse program Discharge planning 10/19: Laying in bed sleeping most of morning. Patient reports feeling better today; he reports withdrawal symptoms have decreased.Continue CIWA. Reports sleeping well last night. denies SI/HI/VH/AH. Continue current tx plan. 10/20: Laying in bed. keeping to self. Patient reports feeling okay today; denies withdrawal symptoms, CIWA DC'd. Patient reports he is hoping to get into a program. denies SI/HI/VH/AH. Encouraged to get out of bed. Continue current tx plan. Patient educated on: diagnosis, medication risk/benefits and therapeutic strategies Reason for continued inpatient stay Substantial Risk for: med/psych decompensation Time Spent With Patient Time: Total time managing care of this patient today _20___ minutes.
[2024-10-20] MEDS: Venlafaxine HCl ER 75 MG CAP.ER.24H PO (08:35)
[2024-10-20 12:35] VITALS: BP 119/85
--- NOTE | 2024-10-20 14:50 | MHC.RECOVRN ---
Igor is a 39-year-old male with a history of alcohol use disorder, depression, anxiety, and SI w/plans, who initially presented to the ED w/concerns of increased depression, anxiety, and suicidal intent +plan. Pt was psychiatrically admitted to [facility] for medication adjustments, safety, and containment in the context of SI w/plan. T/w met with Igor in [facility] group room after receiving addiction consult, to discuss AUD and treatment supports and options. Upon approach pt seeming nervous however is receptive to conversing with t/w. Pt stated that for the past month he had been drinking ~ 1/2 handle of vodka daily to deal with increased stressors. He denies any other substance use, and denies withdrawal symptoms at this time. CIWAs have been 5-2-0-1. Precipitating events identified include multiple of friends, and family conflict. Pt stated he is originally from [facility] but has moved to [facility] to get away from his home town which was described as a trigger for his drinking - Pt stated I'd say I'll just go for some drinks with my old buddies and would go downhill from there Pt reported he had been self-medicating with alcohol as he had not been compliant with his medications due to issues with his insurance and changing providers. Pt reported an extensive history of ATS, CSS, and TSS admissions including at [facility], and [facility]. Pt stated at [facility] I was drinking during treatment as I was dealing again with a friend's . Pt also stated I've dealt with SI for way longer than drinking alcohol Pt identified NAA to be helpful- Naltrexone, paired with my other psych meds clonidine and antidepressants have been really helpful in the past . Other support identified is his friend My friend who lives in [place] is also in recovery and a great support of mine . Pt apprehensive about engaging in further treatment following d/c from the hospital stating If I have family support, I'd rather just go stay with them and just keep taking my meds and not drinking . Pt identified that for the past month he had been homeless - a barrier for staying consistent with treatment. Pt stated I'd go to a CSS locally if possible, do you think [facility] ? Pt was given written materials on harm reduction for AUD, treatment options including ATS/CSS/TSS facilities, and a recovery workbook to work on. Pt was provided with ACS team contact info if any questions or concerns arise. None offered at this time. ACS team to continue to f/u with pt for any new recovery needs.
[2024-10-20 16:02] VITALS: BP 122/86; PULSE 80
[2024-10-20 18:06] VITALS: BP 133/84
[2024-10-20 19:21] VITALS: BP 105/67; PULSE 91; RESP 16; TEMP 37.1; O2SAT 98
[2024-10-21 07:15] VITALS: BP 103/59; PULSE 52; RESP 14; TEMP 36.4; O2SAT 97
[2024-10-21] MEDS: Venlafaxine HCl ER 75 MG CAP.ER.24H PO (08:13)
[2024-10-21 09:09] VITALS: BP 108/64
[2024-10-21 13:21] VITALS: BP 117/72
--- NOTE | 2024-10-21 13:23 | HO.PSYCHPN ---
Subjective Subjective Date of Service: 10/21/24 Reason For Visit: worsening depressive symptoms Interim History: Active on unit. keeping to self. reading in sensory room. Patient continues to reports feeling okay ; focused on getting into a substance abuse program. He reports sleeping well last night. denies SI/HI/VH/AH. Continue current tx plan. Medication Compliance: Yes Side effects from medications: No Mental Status Exam Mental Status Exam Narrative: Pt is alert and oriented; behavior is cooperative and calm; dressed in casual attire; mood is described as okay ; eye contact appropriate; Speech is normal rate, volume and not pressured; thought process is organized and goal directed; Thought content is on tx; denies SI/HI/VH/AH. Diagnostics Vital Signs (24Hr): Vital Signs - 24 hr 10/20/24 16:02 10/20/24 18:06 10/20/24 19:21 Temperature 98.8 F Pulse Rate 80 91 Respiratory Rate 16 Blood Pressure 122/86 133/84 105/67 Pulse Oximetry 98 Oxygen Delivery Method Room Air 10/21/24 07:15 10/21/24 09:09 10/21/24 13:21 Temperature 97.6 F Pulse Rate 52 Respiratory Rate 14 Blood Pressure 103/59 L 108/64 117/72 Pulse Oximetry 97 Oxygen Delivery Method Room Air BMI result Body Mass Index 21.5 Labs 10/17/24 20:11 10/19/24 08:39 Medications Medications Current Medications Acetaminophen (Acetaminophen 325 Mg Tablet) 650 mg PO Q6H PRN PRN Reason: Headache/Pain, Scale 1-10 Last Admin: 10/20/24 12:35 Dose: 650 mg Al Hydroxide/Mg Hydroxide (Magnesium Hydrox/Alum Hydrox 30 Ml Oral.Susp) 30 ml PO Q6H PRN PRN Reason: Heartburn/Nausea Last Admin: 10/18/24 12:22 Dose: 30 ml Clonidine HCl (Clonidine Hcl 0.1 Mg Tablet) 0.1 mg PO TID PRN; Protocol PRN Reason: Anxiety Last Admin: 10/21/24 13:21 Dose: 0.1 mg Hydroxyzine HCl (Hydroxyzine Hcl 25 Mg Tablet) 25 mg PO Q6H PRN PRN Reason: mild anxiety Last Admin: 10/20/24 16:01 Dose: 25 mg Loperamide HCl (Loperamide Hcl 2 Mg Capsule) 2 mg PO Q6H PRN PRN Reason: Loose Stool Magnesium Hydroxide (Milk Of Magnesia 30 Ml Oral.Susp) 30 ml PO DAILY PRN PRN Reason: Constipation Naltrexone HCl (Naltrexone Hcl 50 Mg Tablet) 50 mg PO DAILY [facility] Last Admin: 10/21/24 08:13 Dose: 50 mg Nicotine Polacrilex (Nicotine Polacrilex 2 Mg Gum) 2 mg BUCCAL Q2H PRN PRN Reason: Nicotine Cravings Olanzapine (Olanzapine 5 Mg Tablet) 5 mg PO BID PRN PRN Reason: agitation Last Admin: 10/20/24 15:59 Dose: 5 mg Ondansetron HCl (Ondansetron Odt 8 Mg Tab.Rapdis) 8 mg TRANSLINGU Q12H PRN PRN Reason: Nausea and Vomiting Trazodone HCl (Trazodone Hcl 50 Mg Tablet) 50 mg PO BEDTIME MRX1 PRN PRN Reason: Insomnia Last Admin: 10/19/24 22:06 Dose: 50 mg Venlafaxine HCl (Venlafaxine Hcl Er 75 Mg Cap.Er.24h) 75 mg PO DAILY [facility] Last Admin: 10/21/24 08:13 Dose: 75 mg Allergies Allergies Allergy/AdvReac Type Severity Reaction Status Date / Time No Known Allergies Allergy Verified 10/17/24 19:26 Assessment & Plan Assessment & Plan (1) MDD (major depressive disorder), recurrent severe, without psychosis: Status: Acute Code(s): F33.2 - Major depressive disorder, recurrent severe without psychotic features (2) PTSD (post-traumatic stress disorder): Status: Acute Code(s): F43.10 - Post-traumatic stress disorder, unspecified (3) Alcohol use disorder: Status: Acute Code(s): F10.90 - Alcohol use, unspecified, uncomplicated Plan Patient is a 39-year-old male with history of MDD, PTSD and alcohol use disorder who self presented to ER due to suicidal ideation secondary to worsening depression, anxiety and homelessness. Plan: CV 15 minute safety checks Continue home medications CIWA protocol Encourage groups Referral to outpatient psychiatric providers Referral to substance abuse program Discharge planning 10/19: Laying in bed sleeping most of morning. Patient reports feeling better today; he reports withdrawal symptoms have decreased.Continue CIWA. Reports sleeping well last night. denies SI/HI/VH/AH. Continue current tx plan. 10/20: Laying in bed. keeping to self. Patient reports feeling okay today; denies withdrawal symptoms, FRANK DC'd. Patient reports he is hoping to get into a program. denies SI/HI/VH/AH. Encouraged to get out of bed. Continue current tx plan. 10/21: Active on unit. keeping to self. reading in sensory room. Patient continues to reports feeling okay ; focused on getting into a substance abuse program. He reports sleeping well last night. denies SI/HI/VH/AH. Continue current tx plan. Patient educated on: diagnosis, medication risk/benefits and therapeutic strategies Reason for continued inpatient stay Substantial Risk for: med/psych decompensation Time Spent With Patient Time: Total time managing care of this patient today _20___ minutes.
[2024-10-21 20:00] VITALS: BP 111/70; PULSE 71; RESP 16; TEMP 36.9; O2SAT 98
[2024-10-21 22:22] VITALS: BP 111/70
[2024-10-22 07:39] VITALS: BP 110/73; PULSE 65; RESP 18; TEMP 36.2; O2SAT 99
[2024-10-22] MEDS: Venlafaxine HCl ER 75 MG CAP.ER.24H PO (08:14)
--- NOTE | 2024-10-22 11:31 | HO.PSYCHPN ---
Subjective Subjective Date of Service: 10/22/24 Reason For Visit: worsening depressive symptoms Subjective Notes: Conditional Voluntary Interim History: Active on unit. attending groups. Patient continues to reports feeling okay ; he reports feeling upset because of the unit being loud . He continues focused on getting into a substance abuse program;social services technician aware. denies SI/HI/VH/AH. Continue current tx plan. Medication Compliance: Yes Side effects from medications: No Attending Groups: Yes Mental Status Exam Mental Status Exam Narrative: Pt is alert and oriented; behavior is cooperative and calm; dressed in casual attire; mood is described as okay ; eye contact appropriate; Speech is normal rate, volume and not pressured; thought process is organized and goal directed; Thought content is on tx; denies SI/HI/VH/AH. Diagnostics Vital Signs (24Hr): Vital Signs - 24 hr 10/21/24 13:21 10/21/24 20:00 10/21/24 22:22 Temperature 98.5 F Pulse Rate 71 Respiratory Rate 16 Blood Pressure 117/72 111/70 111/70 Pulse Oximetry 98 Oxygen Delivery Method Room Air 10/22/24 07:39 Temperature 97.2 F Pulse Rate 65 Respiratory Rate 18 Blood Pressure 110/73 Pulse Oximetry 99 Oxygen Delivery Method Room Air BMI result Body Mass Index 21.5 Labs 10/17/24 20:11 10/19/24 08:39 Medications Medications Current Medications Acetaminophen (Acetaminophen 325 Mg Tablet) 650 mg PO Q6H PRN PRN Reason: Headache/Pain, Scale 1-10 Last Admin: 10/22/24 08:14 Dose: 650 mg Al Hydroxide/Mg Hydroxide (Magnesium Hydrox/Alum Hydrox 30 Ml Oral.Susp) 30 ml PO Q6H PRN PRN Reason: Heartburn/Nausea Last Admin: 10/18/24 12:22 Dose: 30 ml Clonidine HCl (Clonidine Hcl 0.1 Mg Tablet) 0.1 mg PO TID PRN; Protocol PRN Reason: Anxiety Last Admin: 10/22/24 08:14 Dose: 0.1 mg Hydroxyzine HCl (Hydroxyzine Hcl 25 Mg Tablet) 25 mg PO Q6H PRN PRN Reason: mild anxiety Last Admin: 10/21/24 22:22 Dose: 25 mg Loperamide HCl (Loperamide Hcl 2 Mg Capsule) 2 mg PO Q6H PRN PRN Reason: Loose Stool Magnesium Hydroxide (Milk Of Magnesia 30 Ml Oral.Susp) 30 ml PO DAILY PRN PRN Reason: Constipation Naltrexone HCl (Naltrexone Hcl 50 Mg Tablet) 50 mg PO DAILY [facility] Last Admin: 10/22/24 08:14 Dose: 50 mg Nicotine Polacrilex (Nicotine Polacrilex 2 Mg Gum) 2 mg BUCCAL Q2H PRN PRN Reason: Nicotine Cravings Last Admin: 10/21/24 22:21 Dose: 2 mg Olanzapine (Olanzapine 5 Mg Tablet) 5 mg PO BID PRN PRN Reason: agitation Last Admin: 10/21/24 16:07 Dose: 5 mg Ondansetron HCl (Ondansetron Odt 8 Mg Tab.Rapdis) 8 mg TRANSLINGU Q12H PRN PRN Reason: Nausea and Vomiting Trazodone HCl (Trazodone Hcl 50 Mg Tablet) 50 mg PO BEDTIME MRX1 PRN PRN Reason: Insomnia Last Admin: 10/21/24 22:22 Dose: 50 mg Venlafaxine HCl (Venlafaxine Hcl Er 75 Mg Cap.Er.24h) 75 mg PO DAILY [facility] Last Admin: 10/22/24 08:14 Dose: 75 mg Allergies Allergies Allergy/AdvReac Type Severity Reaction Status Date / Time No Known Allergies Allergy Verified 10/17/24 19:26 Assessment & Plan Assessment & Plan (1) MDD (major depressive disorder), recurrent severe, without psychosis: Status: Acute Code(s): F33.2 - Major depressive disorder, recurrent severe without psychotic features (2) PTSD (post-traumatic stress disorder): Status: Acute Code(s): F43.10 - Post-traumatic stress disorder, unspecified (3) Alcohol use disorder: Status: Acute Code(s): F10.90 - Alcohol use, unspecified, uncomplicated Plan Patient is a 39-year-old male with history of MDD, PTSD and alcohol use disorder who self presented to ER due to suicidal ideation secondary to worsening depression, anxiety and homelessness. Plan: CV 15 minute safety checks Continue home medications CIWA protocol Encourage groups Referral to outpatient psychiatric providers Referral to substance abuse program Discharge planning 10/19: Laying in bed sleeping most of morning. Patient reports feeling better today; he reports withdrawal symptoms have decreased.Continue CIWA. Reports sleeping well last night. denies SI/HI/VH/AH. Continue current tx plan. 10/20: Laying in bed. keeping to self. Patient reports feeling okay today; denies withdrawal symptoms, FRANK DC'd. Patient reports he is hoping to get into a program. denies SI/HI/VH/AH. Encouraged to get out of bed. Continue current tx plan. 10/21: Active on unit. keeping to self. reading in sensory room. Patient continues to reports feeling okay ; focused on getting into a substance abuse program. He reports sleeping well last night. denies SI/HI/VH/AH. Continue current tx plan. 10/22:Active on unit. attending groups. Patient continues to reports feeling okay ; he reports feeling upset because of the unit being loud . He continues focused on getting into a substance abuse program;social services technician aware. denies SI/HI/VH/AH. Continue current tx plan. Patient educated on: diagnosis, medication risk/benefits and therapeutic strategies Reason for continued inpatient stay Substantial Risk for: med/psych decompensation Time Spent With Patient Time: Total time managing care of this patient today _20___ minutes.
[2024-10-22 14:12] VITALS: BP 123/83
[2024-10-22] MEDS: Nicotine Polacrilex Lozenge 2 MG LOZENGE BUCCAL ×3 (14:12→20:57)
[2024-10-22 20:00] VITALS: BP 134/77; PULSE 69; RESP 16; TEMP 36.8; O2SAT 98
[2024-10-22 22:18] VITALS: BP 134/77
[2024-10-23] MEDS: Nicotine Polacrilex Lozenge 2 MG LOZENGE BUCCAL ×7 (06:35→22:13)
[2024-10-23 07:10] VITALS: BP 132/79; PULSE 72; RESP 18; TEMP 36.9; O2SAT 99
[2024-10-23] MEDS: Venlafaxine HCl ER 75 MG CAP.ER.24H PO (08:32)
[2024-10-23 08:37] VITALS: BP 132/74
[2024-10-23 14:18] VITALS: BP 137/83; PULSE 73
--- NOTE | 2024-10-23 15:04 | HO.PSYCHPN ---
Subjective Subjective Date of Service: 10/23/24 Reason For Visit: worsening depressive symptoms Subjective Notes: Conditional Voluntary Interim History: Active on unit. attending groups. Patient continues focused on getting into a substance abuse program; pt stated, If I don't get into a program then I will go to my friends house in [place] since he is sober and stay with him . denies SI/HI/VH/AH. per nursing, slept 8 hours. Continue current tx plan. Medication Compliance: Yes Side effects from medications: No Attending Groups: Yes Mental Status Exam Mental Status Exam Narrative: Pt is alert and oriented; behavior is cooperative and calm; dressed in casual attire; mood is described as good ; eye contact appropriate; Speech is normal rate, volume and not pressured; thought process is organized and goal directed; Thought content is on tx; denies SI/HI/VH/AH. Diagnostics Vital Signs (24Hr): Vital Signs - 24 hr 10/22/24 20:00 10/22/24 22:18 10/23/24 07:10 Temperature 98.2 F 98.4 F Pulse Rate 69 72 Respiratory Rate 16 18 Blood Pressure 134/77 134/77 132/79 Pulse Oximetry 98 99 Oxygen Delivery Method Room Air Room Air 10/23/24 08:37 10/23/24 14:18 Temperature Pulse Rate 73 Respiratory Rate Blood Pressure 132/74 137/83 Pulse Oximetry Oxygen Delivery Method BMI result Body Mass Index 21.5 Labs 10/17/24 20:11 10/19/24 08:39 Medications Medications Current Medications Acetaminophen (Acetaminophen 325 Mg Tablet) 650 mg PO Q6H PRN PRN Reason: Headache/Pain, Scale 1-10 Last Admin: 10/23/24 08:36 Dose: 650 mg Al Hydroxide/Mg Hydroxide (Magnesium Hydrox/Alum Hydrox 30 Ml Oral.Susp) 30 ml PO Q6H PRN PRN Reason: Heartburn/Nausea Last Admin: 10/18/24 12:22 Dose: 30 ml Clonidine HCl (Clonidine Hcl 0.1 Mg Tablet) 0.1 mg PO TID PRN; Protocol PRN Reason: Anxiety Last Admin: 10/23/24 14:19 Dose: 0.1 mg Hydroxyzine HCl (Hydroxyzine Hcl 25 Mg Tablet) 25 mg PO Q6H PRN PRN Reason: mild anxiety Last Admin: 10/21/24 22:22 Dose: 25 mg Magnesium Hydroxide (Milk Of Magnesia 30 Ml Oral.Susp) 30 ml PO DAILY PRN PRN Reason: Constipation Naltrexone HCl (Naltrexone Hcl 50 Mg Tablet) 50 mg PO DAILY [facility] Last Admin: 10/23/24 08:32 Dose: 50 mg Nicotine Polacrilex (Nicotine Polacrilex 2 Mg Gum) 2 mg BUCCAL Q2H PRN PRN Reason: Nicotine Cravings Last Admin: 10/22/24 11:56 Dose: 2 mg Nicotine Polacrilex (Nicotine Polacrilex Lozenge 2 Mg Lozenge) 2 mg BUCCAL Q2H PRN PRN Reason: Nicotine Cravings Last Admin: 10/23/24 14:20 Dose: 2 mg Olanzapine (Olanzapine 5 Mg Tablet) 5 mg PO BID PRN PRN Reason: agitation Last Admin: 10/22/24 16:37 Dose: 5 mg Trazodone HCl (Trazodone Hcl 50 Mg Tablet) 50 mg PO BEDTIME MRX1 PRN PRN Reason: Insomnia Last Admin: 10/22/24 22:18 Dose: 50 mg Venlafaxine HCl (Venlafaxine Hcl Er 75 Mg Cap.Er.24h) 75 mg PO DAILY [facility] Last Admin: 10/23/24 08:32 Dose: 75 mg Allergies Allergies Allergy/AdvReac Type Severity Reaction Status Date / Time No Known Allergies Allergy Verified 10/17/24 19:26 Assessment & Plan Assessment & Plan (1) MDD (major depressive disorder), recurrent severe, without psychosis: Status: Acute Code(s): F33.2 - Major depressive disorder, recurrent severe without psychotic features (2) PTSD (post-traumatic stress disorder): Status: Acute Code(s): F43.10 - Post-traumatic stress disorder, unspecified (3) Alcohol use disorder: Status: Acute Code(s): F10.90 - Alcohol use, unspecified, uncomplicated Plan Patient is a 39-year-old male with history of MDD, PTSD and alcohol use disorder who self presented to ER due to suicidal ideation secondary to worsening depression, anxiety and homelessness. Plan: CV 15 minute safety checks Continue home medications CIWA protocol Encourage groups Referral to outpatient psychiatric providers Referral to substance abuse program Discharge planning 10/19: Laying in bed sleeping most of morning. Patient reports feeling better today; he reports withdrawal symptoms have decreased.Continue CIWA. Reports sleeping well last night. denies SI/HI/VH/AH. Continue current tx plan. 10/20: Laying in bed. keeping to self. Patient reports feeling okay today; denies withdrawal symptoms, CIWA DC'd. Patient reports he is hoping to get into a program. denies SI/HI/VH/AH. Encouraged to get out of bed. Continue current tx plan. 10/21: Active on unit. keeping to self. reading in sensory room. Patient continues to reports feeling okay ; focused on getting into a substance abuse program. He reports sleeping well last night. denies SI/HI/VH/AH. Continue current tx plan. 10/22:Active on unit. attending groups. Patient continues to reports feeling okay ; he reports feeling upset because of the unit being loud . He continues focused on getting into a substance abuse program;social worker assistant aware. denies SI/HI/VH/AH. Continue current tx plan. 10/23: Active on unit. attending groups. Patient continues focused on getting into a substance abuse program; pt stated, If I don't get into a program then I will go to my friends house in [place] since he is sober and stay with him . denies SI/HI/VH/AH. per nursing, slept 8 hours. Continue current tx plan. Patient educated on: diagnosis and medication risk/benefits Reason for continued inpatient stay Substantial Risk for: med/psych decompensation Time Spent With Patient Time: Total time managing care of this patient today _20___ minutes.
[2024-10-23 20:00] VITALS: BP 137/58; PULSE 87; RESP 16; TEMP 37.4; O2SAT 97
[2024-10-23 22:12] VITALS: BP 137/58
[2024-10-24 08:00] VITALS: BP 115/67; PULSE 60; RESP 18; TEMP 36.7; O2SAT 96
[2024-10-24] MEDS: Venlafaxine HCl ER 75 MG CAP.ER.24H PO (08:24)
[2024-10-24 08:27] VITALS: BP 115/67
[2024-10-24] MEDS: Nicotine Polacrilex Lozenge 2 MG LOZENGE BUCCAL ×5 (08:27→23:26)
--- NOTE | 2024-10-24 09:44 | HO.PSYCHPN ---
Subjective Subjective Date of Service: 10/24/24 Reason For Visit: worsening depressive symptoms Subjective Notes: Conditional Voluntary Interim History: Active on unit. attending groups. social with peers. Patient reports feeling better ; pt stated, I feel like the medication is starting to work . denies SI/HI/VH/AH. per geriatric social worker, pt was referred to [facility]; pt aware. Continue current tx plan. Medication Compliance: Yes Side effects from medications: No Attending Groups: Yes Mental Status Exam Mental Status Exam Narrative: Pt is alert and oriented; behavior is cooperative and calm; dressed in casual attire; mood is described as good ; eye contact appropriate; Speech is normal rate, volume and not pressured; thought process is organized; Thought content is on tx; denies SI/HI/VH/AH. Diagnostics Vital Signs (24Hr): Vital Signs - 24 hr 10/23/24 14:18 10/23/24 20:00 10/23/24 22:12 Temperature 99.4 F Pulse Rate 73 87 Respiratory Rate 16 Blood Pressure 137/83 137/58 L 137/58 L Pulse Oximetry 97 Oxygen Delivery Method Room Air 10/24/24 08:00 10/24/24 08:27 Temperature 98.1 F Pulse Rate 60 Respiratory Rate 18 Blood Pressure 115/67 115/67 Pulse Oximetry 96 Oxygen Delivery Method Room Air BMI result Body Mass Index 21.5 Labs 10/17/24 20:11 10/19/24 08:39 Medications Medications Current Medications Acetaminophen (Acetaminophen 325 Mg Tablet) 650 mg PO Q6H PRN PRN Reason: Headache/Pain, Scale 1-10 Last Admin: 10/24/24 08:27 Dose: 650 mg Al Hydroxide/Mg Hydroxide (Magnesium Hydrox/Alum Hydrox 30 Ml Oral.Susp) 30 ml PO Q6H PRN PRN Reason: Heartburn/Nausea Last Admin: 10/18/24 12:22 Dose: 30 ml Clonidine HCl (Clonidine Hcl 0.1 Mg Tablet) 0.1 mg PO TID PRN; Protocol PRN Reason: Anxiety Last Admin: 10/24/24 08:27 Dose: 0.1 mg Hydroxyzine HCl (Hydroxyzine Hcl 25 Mg Tablet) 25 mg PO Q6H PRN PRN Reason: mild anxiety Last Admin: 10/21/24 22:22 Dose: 25 mg Magnesium Hydroxide (Milk Of Magnesia 30 Ml Oral.Susp) 30 ml PO DAILY PRN PRN Reason: Constipation Naltrexone HCl (Naltrexone Hcl 50 Mg Tablet) 50 mg PO DAILY [facility] Last Admin: 10/24/24 08:24 Dose: 50 mg Nicotine Polacrilex (Nicotine Polacrilex 2 Mg Gum) 2 mg BUCCAL Q2H PRN PRN Reason: Nicotine Cravings Last Admin: 10/22/24 11:56 Dose: 2 mg Nicotine Polacrilex (Nicotine Polacrilex Lozenge 2 Mg Lozenge) 2 mg BUCCAL Q2H PRN PRN Reason: Nicotine Cravings Last Admin: 10/24/24 08:27 Dose: 2 mg Olanzapine (Olanzapine 5 Mg Tablet) 5 mg PO BID PRN PRN Reason: agitation Last Admin: 10/24/24 09:36 Dose: 5 mg Trazodone HCl (Trazodone Hcl 50 Mg Tablet) 50 mg PO BEDTIME MRX1 PRN PRN Reason: Insomnia Last Admin: 10/23/24 23:12 Dose: 50 mg Venlafaxine HCl (Venlafaxine Hcl Er 75 Mg Cap.Er.24h) 75 mg PO DAILY [facility] Last Admin: 10/24/24 08:24 Dose: 75 mg Allergies Allergies Allergy/AdvReac Type Severity Reaction Status Date / Time No Known Allergies Allergy Verified 10/17/24 19:26 Assessment & Plan Assessment & Plan (1) MDD (major depressive disorder), recurrent severe, without psychosis: Status: Acute Code(s): F33.2 - Major depressive disorder, recurrent severe without psychotic features (2) PTSD (post-traumatic stress disorder): Status: Acute Code(s): F43.10 - Post-traumatic stress disorder, unspecified (3) Alcohol use disorder: Status: Acute Code(s): F10.90 - Alcohol use, unspecified, uncomplicated Plan Patient is a 39-year-old male with history of MDD, PTSD and alcohol use disorder who self presented to ER due to suicidal ideation secondary to worsening depression, anxiety and homelessness. Plan: CV 15 minute safety checks Continue home medications CIWA protocol Encourage groups Referral to outpatient psychiatric providers Referral to substance abuse program Discharge planning 10/19: Laying in bed sleeping most of morning. Patient reports feeling better today; he reports withdrawal symptoms have decreased.Continue CIWA. Reports sleeping well last night. denies SI/HI/VH/AH. Continue current tx plan. 10/20: Laying in bed. keeping to self. Patient reports feeling okay today; denies withdrawal symptoms, CIWA DC'd. Patient reports he is hoping to get into a program. denies SI/HI/VH/AH. Encouraged to get out of bed. Continue current tx plan. 10/21: Active on unit. keeping to self. reading in sensory room. Patient continues to reports feeling okay ; focused on getting into a substance abuse program. He reports sleeping well last night. denies SI/HI/VH/AH. Continue current tx plan. 10/22:Active on unit. attending groups. Patient continues to reports feeling okay ; he reports feeling upset because of the unit being loud . He continues focused on getting into a substance abuse program;geriatric social worker aware. denies SI/HI/VH/AH. Continue current tx plan. 10/23: Active on unit. attending groups. Patient continues focused on getting into a substance abuse program; pt stated, If I don't get into a program then I will go to my friends house in [place] since he is sober and stay with him . denies SI/HI/VH/AH. per nursing, slept 8 hours. Continue current tx plan. 10/24: Active on unit. attending groups. social with peers. Patient reports feeling better ; pt stated, I feel like the medication is starting to work . denies SI/HI/VH/AH. per geriatric social worker, pt was referred to [facility] [place]; pt aware. Continue current tx plan. Patient educated on: diagnosis and medication risk/benefits Reason for continued inpatient stay Substantial Risk for: med/psych decompensation Time Spent With Patient Time: Total time managing care of this patient today __20__ minutes.
[2024-10-24 13:19] VITALS: BMI 22.2
[2024-10-24 16:20] VITALS: BP 127/83
[2024-10-24 19:18] VITALS: BP 135/69; PULSE 71; RESP 16; TEMP 36.9; O2SAT 97
[2024-10-24 22:18] VITALS: BP 124/79
[2024-10-25] MEDS: Nicotine Polacrilex Lozenge 2 MG LOZENGE BUCCAL ×8 (05:38→23:07)
[2024-10-25 08:00] VITALS: BP 127/78; PULSE 79; RESP 14; TEMP 36.6; O2SAT 98
[2024-10-25] MEDS: Venlafaxine HCl ER 75 MG CAP.ER.24H PO (08:09)
--- NOTE | 2024-10-25 08:55 | P.PNPSI_ITS ---
Subjective Subjective Date of Service: 10/25/24 Reason For Visit: worsening depressive symptoms Subjective Notes: Conditional Voluntary Interim History: Active on unit. attending groups. social with peers. Patient reports sleeping well last night. He feels medications are helping with his anxiety and depression. denies SI/HI/VH/AH. Plans to discharge to his friends house if no bed available at programs. Continue current tx plan. Medication Compliance: Yes Side effects from medications: No Attending Groups: Yes Mental Status Exam Mental Status Exam Narrative: Pt is alert and oriented; behavior is cooperative and calm; dressed in casual attire; mood is described as good ; eye contact appropriate; Speech is normal rate, volume and not pressured; thought process is organized; Thought content is on tx; denies SI/HI/VH/AH. Diagnostics Vital Signs (24Hr): Vital Signs - 24 hr 10/24/24 16:20 10/24/24 19:18 10/24/24 22:18 Temperature 98.4 F Pulse Rate 71 Respiratory Rate 16 Blood Pressure 127/83 135/69 124/79 Pulse Oximetry 97 Oxygen Delivery Method Room Air 10/25/24 08:00 Temperature 97.9 F Pulse Rate 79 Respiratory Rate 14 Blood Pressure 127/78 Pulse Oximetry 98 Oxygen Delivery Method Room Air BMI result Body Mass Index 22.2 Labs 10/17/24 20:11 10/19/24 08:39 Medications Medications Current Medications Acetaminophen (Acetaminophen 325 Mg Tablet) 650 mg PO Q6H PRN PRN Reason: Headache/Pain, Scale 1-10 Last Admin: 10/24/24 22:17 Dose: 650 mg Al Hydroxide/Mg Hydroxide (Magnesium Hydrox/Alum Hydrox 30 Ml Oral.Susp) 30 ml PO Q6H PRN PRN Reason: Heartburn/Nausea Last Admin: 10/18/24 12:22 Dose: 30 ml Clonidine HCl (Clonidine Hcl 0.1 Mg Tablet) 0.1 mg PO TID PRN; Protocol PRN Reason: Anxiety Last Admin: 10/24/24 22:18 Dose: 0.1 mg Hydroxyzine HCl (Hydroxyzine Hcl 25 Mg Tablet) 25 mg PO Q6H PRN PRN Reason: mild anxiety Last Admin: 10/24/24 22:18 Dose: 25 mg Magnesium Hydroxide (Milk Of Magnesia 30 Ml Oral.Susp) 30 ml PO DAILY PRN PRN Reason: Constipation Naltrexone HCl (Naltrexone Hcl 50 Mg Tablet) 50 mg PO DAILY [facility] Last Admin: 10/25/24 08:09 Dose: 50 mg Nicotine Polacrilex (Nicotine Polacrilex 2 Mg Gum) 2 mg BUCCAL Q2H PRN PRN Reason: Nicotine Cravings Last Admin: 10/22/24 11:56 Dose: 2 mg Nicotine Polacrilex (Nicotine Polacrilex Lozenge 2 Mg Lozenge) 2 mg BUCCAL Q2H PRN PRN Reason: Nicotine Cravings Last Admin: 10/25/24 05:38 Dose: 2 mg Olanzapine (Olanzapine 5 Mg Tablet) 5 mg PO BID PRN PRN Reason: agitation Last Admin: 10/24/24 09:36 Dose: 5 mg Trazodone HCl (Trazodone Hcl 50 Mg Tablet) 50 mg PO BEDTIME MRX1 PRN PRN Reason: Insomnia Last Admin: 10/24/24 23:26 Dose: 50 mg Venlafaxine HCl (Venlafaxine Hcl Er 75 Mg Cap.Er.24h) 75 mg PO DAILY [facility] Last Admin: 10/25/24 08:09 Dose: 75 mg Allergies Allergies Allergy/AdvReac Type Severity Reaction Status Date / Time No Known Allergies Allergy Verified 10/17/24 19:26 Assessment & Plan Assessment & Plan (1) MDD (major depressive disorder), recurrent severe, without psychosis: Status: Acute Code(s): F33.2 - Major depressive disorder, recurrent severe without psychotic features (2) PTSD (post-traumatic stress disorder): Status: Acute Code(s): F43.10 - Post-traumatic stress disorder, unspecified (3) Alcohol use disorder: Status: Acute Code(s): F10.90 - Alcohol use, unspecified, uncomplicated Plan Patient is a 39-year-old male with history of MDD, PTSD and alcohol use disorder who self presented to ER due to suicidal ideation secondary to worsening depression, anxiety and homelessness. Plan: CV 15 minute safety checks Continue home medications CIWA protocol Encourage groups Referral to outpatient psychiatric providers Referral to substance abuse program Discharge planning 10/19: Laying in bed sleeping most of morning. Patient reports feeling better today; he reports withdrawal symptoms have decreased.Continue CIWA. Reports sleeping well last night. denies SI/HI/VH/AH. Continue current tx plan. 10/20: Laying in bed. keeping to self. Patient reports feeling okay today; denies withdrawal symptoms, CIWA DC'd. Patient reports he is hoping to get into a program. denies SI/HI/VH/AH. Encouraged to get out of bed. Continue current tx plan. 10/21: Active on unit. keeping to self. reading in sensory room. Patient continues to reports feeling okay ; focused on getting into a substance abuse program. He reports sleeping well last night. denies SI/HI/VH/AH. Continue current tx plan. 10/22:Active on unit. attending groups. Patient continues to reports feeling okay ; he reports feeling upset because of the unit being loud . He continues focused on getting into a substance abuse program;nephrology social worker aware. denies SI/HI/VH/AH. Continue current tx plan. 10/23: Active on unit. attending groups. Patient continues focused on getting into a substance abuse program; pt stated, If I don't get into a program then I will go to my friends house in [place] since he is sober and stay with him . denies SI/HI/VH/AH. per nursing, slept 8 hours. Continue current tx plan. 10/24: Active on unit. attending groups. social with peers. Patient reports feeling better ; pt stated, I feel like the medication is starting to work . denies SI/HI/VH/AH. per nephrology social worker, pt was referred to [facility]; pt aware. Continue current tx plan. 10/25: Patient reports sleeping well last night. He feels medications are helping with his anxiety and depression. denies SI/HI/VH/AH. Plans to discharge to his friends house if no bed available at programs. Continue current tx plan. Patient educated on: diagnosis, medication risk/benefits and therapeutic strategies Reason for continued inpatient stay Substantial Risk for: med/psych decompensation Time Spent With Patient Time: Total time managing care of this patient today _20___ minutes.
[2024-10-25 09:47] VITALS: BP 125/79
[2024-10-25 16:35] VITALS: BP 127/83
[2024-10-25 20:00] VITALS: BP 132/79; PULSE 86; RESP 16; TEMP 37.1; O2SAT 100
[2024-10-25 21:06] VITALS: BP 131/84
[2024-10-26] MEDS: Nicotine Polacrilex Lozenge 2 MG LOZENGE BUCCAL ×6 (07:11→21:54)
--- NOTE | 2024-10-26 07:47 | P.PNPSI_ITS ---
Subjective Subjective Date of Service: 10/26/24 Reason For Visit: worsening depressive symptoms Subjective Notes: Conditional Voluntary Interim History: Active on unit. attending groups. social with peers. overall reports things are going well. Anxiety and depression improving. Does feel agitated at times and Olanzapine been helpful and we will trial a slightly higher dose of 7.5 mg as needed. Hopeful he can continue Strattera as part of his discharge medications with prescriptions sent to pharmacy close to friends house if no bed available at programs. Medication Compliance: Yes Side effects from medications: No Attending Groups: Yes Review of Systems Acute medical concerns: No Review of Systems Review of Systems nothing of note Mental Status Exam Mental Status Exam Narrative: Pt is alert and oriented; behavior is cooperative and calm; dressed in casual attire; mood is described as good ; eye contact appropriate; Speech is normal rate, volume and not pressured; thought process is organized; Thought content is on tx; denies SI/HI/VH/AH. Diagnostics Vital Signs (24Hr): Vital Signs - 24 hr 10/25/24 08:00 10/25/24 09:47 10/25/24 16:35 Temperature 97.9 F Pulse Rate 79 Respiratory Rate 14 Blood Pressure 127/78 125/79 127/83 Pulse Oximetry 98 Oxygen Delivery Method Room Air 10/25/24 20:00 10/25/24 21:06 Temperature 98.8 F Pulse Rate 86 Respiratory Rate 16 Blood Pressure 132/79 131/84 Pulse Oximetry 100 Oxygen Delivery Method Room Air BMI result Body Mass Index 22.2 Labs 10/17/24 20:11 10/19/24 08:39 Medications Medications Current Medications Acetaminophen (Acetaminophen 325 Mg Tablet) 650 mg PO Q6H PRN PRN Reason: Headache/Pain, Scale 1-10 Last Admin: 10/25/24 21:07 Dose: 650 mg Al Hydroxide/Mg Hydroxide (Magnesium Hydrox/Alum Hydrox 30 Ml Oral.Susp) 30 ml PO Q6H PRN PRN Reason: Heartburn/Nausea Last Admin: 10/18/24 12:22 Dose: 30 ml Clonidine HCl (Clonidine Hcl 0.1 Mg Tablet) 0.1 mg PO TID PRN; Protocol PRN Reason: Anxiety Last Admin: 10/25/24 21:06 Dose: 0.1 mg Hydroxyzine HCl (Hydroxyzine Hcl 25 Mg Tablet) 25 mg PO Q6H PRN PRN Reason: mild anxiety Last Admin: 10/25/24 21:06 Dose: 25 mg Magnesium Hydroxide (Milk Of Magnesia 30 Ml Oral.Susp) 30 ml PO DAILY PRN PRN Reason: Constipation Naltrexone HCl (Naltrexone Hcl 50 Mg Tablet) 50 mg PO DAILY [facility] Last Admin: 10/25/24 08:09 Dose: 50 mg Nicotine Polacrilex (Nicotine Polacrilex 2 Mg Gum) 2 mg BUCCAL Q2H PRN PRN Reason: Nicotine Cravings Last Admin: 10/22/24 11:56 Dose: 2 mg Nicotine Polacrilex (Nicotine Polacrilex Lozenge 2 Mg Lozenge) 2 mg BUCCAL Q2H PRN PRN Reason: Nicotine Cravings Last Admin: 10/26/24 07:11 Dose: 2 mg Olanzapine (Olanzapine 5 Mg Tablet) 5 mg PO BID PRN PRN Reason: agitation Last Admin: 10/24/24 09:36 Dose: 5 mg Trazodone HCl (Trazodone Hcl 50 Mg Tablet) 50 mg PO BEDTIME MRX1 PRN PRN Reason: Insomnia Last Admin: 10/25/24 22:10 Dose: 50 mg Venlafaxine HCl (Venlafaxine Hcl Er 75 Mg Cap.Er.24h) 75 mg PO DAILY [facility] Last Admin: 10/25/24 08:09 Dose: 75 mg Allergies Allergies Allergy/AdvReac Type Severity Reaction Status Date / Time No Known Allergies Allergy Verified 10/17/24 19:26 Assessment & Plan Assessment & Plan (1) MDD (major depressive disorder), recurrent severe, without psychosis: Status: Acute Code(s): F33.2 - Major depressive disorder, recurrent severe without psychotic features (2) PTSD (post-traumatic stress disorder): Status: Acute Code(s): F43.10 - Post-traumatic stress disorder, unspecified (3) Alcohol use disorder: Status: Acute Code(s): F10.90 - Alcohol use, unspecified, uncomplicated Plan Patient is a 39-year-old male with history of MDD, PTSD and alcohol use disorder who self presented to ER due to suicidal ideation secondary to worsening depression, anxiety and homelessness. Plan: CV 15 minute safety checks Continue home medications CIWA protocol Encourage groups Referral to outpatient psychiatric providers Referral to substance abuse program Discharge planning 10/19: Laying in bed sleeping most of morning. Patient reports feeling better today; he reports withdrawal symptoms have decreased.Continue CIWA. Reports sleeping well last night. denies SI/HI/VH/AH. Continue current tx plan. 10/20: Laying in bed. keeping to self. Patient reports feeling okay today; denies withdrawal symptoms, CIWA DC'd. Patient reports he is hoping to get into a program. denies SI/HI/VH/AH. Encouraged to get out of bed. Continue current tx plan. 10/21: Active on unit. keeping to self. reading in sensory room. Patient continues to reports feeling okay ; focused on getting into a substance abuse program. He reports sleeping well last night. denies SI/HI/VH/AH. Continue current tx plan. 10/22:Active on unit. attending groups. Patient continues to reports feeling okay ; he reports feeling upset because of the unit being loud . He continues focused on getting into a substance abuse program;social media sr strategy manager aware. denies SI/HI/VH/AH. Continue current tx plan. 10/23: Active on unit. attending groups. Patient continues focused on getting into a substance abuse program; pt stated, If I don't get into a program then I will go to my friends house in [place] since he is sober and stay with him . denies SI/HI/VH/AH. per nursing, slept 8 hours. Continue current tx plan. 10/24: Active on unit. attending groups. social with peers. Patient reports feeling better ; pt stated, I feel like the medication is starting to work . denies SI/HI/VH/AH. per social media sr strategy manager, pt was referred to [facility]; pt aware. Continue current tx plan. 10/25: Patient reports sleeping well last night. He feels medications are helping with his anxiety and depression. denies SI/HI/VH/AH. Plans to discharge to his friends house if no bed available at programs. Continue current tx plan. 10/26: Does feel agitated at times and Olanzapine been helpful and we will trial a slightly higher dose of 7.5 mg as needed. Hopeful he can continue Strattera as part of his discharge medications with prescriptions Reason for continued inpatient stay Substantial Risk for: rapid decompensation Time Spent With Patient Time: Total time managing care of this patient today ____ minutes.
[2024-10-26 08:15] VITALS: BP 118/72; PULSE 65; RESP 18; TEMP 36.2; O2SAT 98
[2024-10-26] MEDS: Venlafaxine HCl ER 75 MG CAP.ER.24H PO (08:33)
[2024-10-26 13:45] VITALS: BP 118/74; PULSE 76
[2024-10-26 19:52] VITALS: BP 126/63; PULSE 95; RESP 16; TEMP 37.1; O2SAT 96
[2024-10-26 22:19] VITALS: BP 133/82
[2024-10-27 07:57] VITALS: BP 105/62; PULSE 71; RESP 14; TEMP 36.7; O2SAT 98
[2024-10-27] MEDS: Venlafaxine HCl ER 75 MG CAP.ER.24H PO (08:23)
[2024-10-27] MEDS: Nicotine Polacrilex Lozenge 2 MG LOZENGE BUCCAL ×7 (08:51→22:09)
[2024-10-27] MEDS: OLANZapine 7.5 MG TABLET PO (11:28)
--- NOTE | 2024-10-27 11:36 | P.PNPSI_ITS ---
Subjective Subjective Date of Service: 10/27/24 Reason For Visit: worsening depressive symptoms Interim History: Active on unit. attending groups. social with peers. overall reports things are going well. Anxiety and depression improving. Does feel agitated at times but has not required using higher dose of as needed olanzapine we changed yesterday. Otherwise remainshopeful he can continue Strattera as part of his discharge medications with prescriptions sent to pharmacy close to friends house if no bed available at programs. Medication Compliance: Yes Side effects from medications: No Attending Groups: Yes Review of Systems Acute medical concerns: No Review of Systems Review of Systems nothing of note Mental Status Exam Mental Status Exam Narrative: Pt is alert and oriented; behavior is cooperative and calm; dressed in casual attire; mood is described as good ; eye contact appropriate; Speech is normal rate, volume and not pressured; thought process is organized; Thought content is on tx; denies SI/HI/VH/AH. Diagnostics Vital Signs (24Hr): Vital Signs - 24 hr 10/26/24 13:45 10/26/24 19:52 10/26/24 22:19 Temperature 98.7 F Pulse Rate 76 95 Respiratory Rate 16 Blood Pressure 118/74 126/63 133/82 Pulse Oximetry 96 Oxygen Delivery Method Room Air 10/27/24 07:57 Temperature 98.0 F Pulse Rate 71 Respiratory Rate 14 Blood Pressure 105/62 Pulse Oximetry 98 Oxygen Delivery Method Room Air BMI result Body Mass Index 22.2 Labs 10/17/24 20:11 10/19/24 08:39 Medications Medications Current Medications Acetaminophen (Acetaminophen 325 Mg Tablet) 650 mg PO Q6H PRN PRN Reason: Headache/Pain, Scale 1-10 Last Admin: 10/27/24 08:23 Dose: 650 mg Al Hydroxide/Mg Hydroxide (Magnesium Hydrox/Alum Hydrox 30 Ml Oral.Susp) 30 ml PO Q6H PRN PRN Reason: Heartburn/Nausea Last Admin: 10/18/24 12:22 Dose: 30 ml Clonidine HCl (Clonidine Hcl 0.1 Mg Tablet) 0.1 mg PO TID PRN; Protocol PRN Reason: Anxiety Last Admin: 10/27/24 08:23 Dose: 0.1 mg Hydroxyzine HCl (Hydroxyzine Hcl 25 Mg Tablet) 25 mg PO Q6H PRN PRN Reason: mild anxiety Last Admin: 10/26/24 22:19 Dose: 25 mg Magnesium Hydroxide (Milk Of Magnesia 30 Ml Oral.Susp) 30 ml PO DAILY PRN PRN Reason: Constipation Naltrexone HCl (Naltrexone Hcl 50 Mg Tablet) 50 mg PO DAILY [facility] Last Admin: 10/27/24 08:23 Dose: 50 mg Nicotine Polacrilex (Nicotine Polacrilex 2 Mg Gum) 2 mg BUCCAL Q2H PRN PRN Reason: Nicotine Cravings Last Admin: 10/26/24 23:14 Dose: 2 mg Nicotine Polacrilex (Nicotine Polacrilex Lozenge 2 Mg Lozenge) 2 mg BUCCAL Q2H PRN PRN Reason: Nicotine Cravings Last Admin: 10/27/24 11:28 Dose: 2 mg Olanzapine (Olanzapine 7.5 Mg Tablet) 7.5 mg PO BID PRN PRN Reason: agitation Last Admin: 10/27/24 11:28 Dose: 7.5 mg Trazodone HCl (Trazodone Hcl 50 Mg Tablet) 50 mg PO BEDTIME MRX1 PRN PRN Reason: Insomnia Last Admin: 10/26/24 23:19 Dose: 50 mg Venlafaxine HCl (Venlafaxine Hcl Er 75 Mg Cap.Er.24h) 75 mg PO DAILY [facility] Last Admin: 10/27/24 08:23 Dose: 75 mg Allergies Allergies Allergy/AdvReac Type Severity Reaction Status Date / Time No Known Allergies Allergy Verified 10/17/24 19:26 Assessment & Plan Assessment & Plan (1) MDD (major depressive disorder), recurrent severe, without psychosis: Status: Acute Code(s): F33.2 - Major depressive disorder, recurrent severe without psychotic features (2) PTSD (post-traumatic stress disorder): Status: Acute Code(s): F43.10 - Post-traumatic stress disorder, unspecified (3) Alcohol use disorder: Status: Acute Code(s): F10.90 - Alcohol use, unspecified, uncomplicated Plan Patient is a 39-year-old male with history of MDD, PTSD and alcohol use disorder who self presented to ER due to suicidal ideation secondary to worsening depression, anxiety and homelessness. Plan: CV 15 minute safety checks Continue home medications CIWA protocol Encourage groups Referral to outpatient psychiatric providers Referral to substance abuse program Discharge planning 10/19: Laying in bed sleeping most of morning. Patient reports feeling better today; he reports withdrawal symptoms have decreased.Continue CIWA. Reports sleeping well last night. denies SI/HI/VH/AH. Continue current tx plan. 10/20: Laying in bed. keeping to self. Patient reports feeling okay today; denies withdrawal symptoms, FRANK DC'd. Patient reports he is hoping to get into a program. denies SI/HI/VH/AH. Encouraged to get out of bed. Continue current tx plan. 10/21: Active on unit. keeping to self. reading in sensory room. Patient continues to reports feeling okay ; focused on getting into a substance abuse program. He reports sleeping well last night. denies SI/HI/VH/AH. Continue current tx plan. 10/22:Active on unit. attending groups. Patient continues to reports feeling okay ; he reports feeling upset because of the unit being loud . He continues focused on getting into a substance abuse program;social service technician aware. denies SI/HI/VH/AH. Continue current tx plan. 10/23: Active on unit. attending groups. Patient continues focused on getting into a substance abuse program; pt stated, If I don't get into a program then I will go to my friends house in [place] since he is sober and stay with him . denies SI/HI/VH/AH. per nursing, slept 8 hours. Continue current tx plan. 10/24: Active on unit. attending groups. social with peers. Patient reports feeling better ; pt stated, I feel like the medication is starting to work . denies SI/HI/VH/AH. per social service technician, pt was referred to [facility]; pt aware. Continue current tx plan. 10/25: Patient reports sleeping well last night. He feels medications are helping with his anxiety and depression. denies SI/HI/VH/AH. Plans to discharge to his friends house if no bed available at programs. Continue current tx plan. 10/26: Does feel agitated at times and Olanzapine been helpful and we will trial a slightly higher dose of 7.5 mg as needed. Hopeful he can continue Strattera as part of his discharge medications with prescriptions 10/27: no changes Reason for continued inpatient stay Substantial Risk for: rapid decompensation Time Spent With Patient Time: Total time managing care of this patient today ____ minutes.
[2024-10-27 13:20] VITALS: BP 119/77
[2024-10-27 19:54] VITALS: BP 122/74; PULSE 80; RESP 16; TEMP 37.2; O2SAT 97
[2024-10-28 07:46] VITALS: BP 118/77; PULSE 63; RESP 14; TEMP 36.3; O2SAT 99
[2024-10-28] MEDS: Venlafaxine HCl ER 75 MG CAP.ER.24H PO (08:12)
[2024-10-28] MEDS: Nicotine Polacrilex Lozenge 2 MG LOZENGE BUCCAL ×5 (08:33→21:12)
--- NOTE | 2024-10-28 15:00 | HO.PSYCHPN ---
Subjective Subjective Date of Service: 10/28/24 Reason For Visit: worsening depressive symptoms Subjective Notes: Conditional Voluntary Healthcare Proxy: No Guardianship: No Medical Problems Affecting Mental Status: No Interim History: Medical record and nursing notes reviewed; case discussed during rounds with team/nursing staff, and met with patient for supportive therapy/psychoeducation, as well as medication management. Patient slept well, improving appetite, compliant with medications. Denies side effects. Reports improving in mood and depression. Denies safety concern. We discussed regarding Strattera was will not be prescribed today or tomorrow. Patient was not happy at the beginning, but understand the rationale of why can not prescribe it to him we do not have opportunities to monitor for side effects any happened when he leaves the facility. Patient is understandable. Patient advised to touch base with the outpatient provider regarding Strattera. Discussed with him regarding medication will send home tomorrow to prefer pharmacy. Patient is receptive. Wants to son nicotine lozenge for smoking cessation. No safety concerns. Patient will be staying with a friend who is safe to stay with. Medication Compliance: Yes Side effects from medications: No Attending Groups: Yes Review of Systems Acute medical concerns: No Medical Review of Systems: unchanged Review of Systems Review of Systems Constitutional: Denies fatigue and Denies fever(s) Cardiovascular: Denies chest pain and Denies dyspnea Respiratory: Denies dyspnea Gastrointestinal: Denies abdominal pain Psychiatric: denies suicidal ideation Endocrine: Denies fatigue Yes all other systems are reviewed and are negative Mental Status Exam Mental Status Exam Narrative: Pt is alert and oriented; behavior is cooperative and calm; dressed in casual attire; mood is described as better ; eye contact appropriate; Speech is normal rate, volume and not pressured; thought process is organized; Thought content is on tx; denies SI/HI/VH/AH. Insight and judgment are good. Diagnostics Vital Signs (24Hr): Vital Signs - 24 hr 10/27/24 19:54 10/28/24 07:46 Temperature 98.9 F 97.3 F Pulse Rate 80 63 Respiratory Rate 16 14 Blood Pressure 122/74 118/77 Pulse Oximetry 97 99 Oxygen Delivery Method Room Air Room Air BMI result Body Mass Index 22.2 Labs 10/17/24 20:11 10/19/24 08:39 Medications Medications Current Medications Acetaminophen (Acetaminophen 325 Mg Tablet) 650 mg PO Q6H PRN PRN Reason: Headache/Pain, Scale 1-10 Last Admin: 10/28/24 08:12 Dose: 650 mg Al Hydroxide/Mg Hydroxide (Magnesium Hydrox/Alum Hydrox 30 Ml Oral.Susp) 30 ml PO Q6H PRN PRN Reason: Heartburn/Nausea Last Admin: 10/18/24 12:22 Dose: 30 ml Clonidine HCl (Clonidine Hcl 0.1 Mg Tablet) 0.1 mg PO TID PRN; Protocol PRN Reason: Anxiety Last Admin: 10/28/24 08:12 Dose: 0.1 mg Hydroxyzine HCl (Hydroxyzine Hcl 25 Mg Tablet) 25 mg PO Q6H PRN PRN Reason: mild anxiety Last Admin: 10/27/24 20:50 Dose: 25 mg Magnesium Hydroxide (Milk Of Magnesia 30 Ml Oral.Susp) 30 ml PO DAILY PRN PRN Reason: Constipation Naltrexone HCl (Naltrexone Hcl 50 Mg Tablet) 50 mg PO DAILY MICHAEL Last Admin: 10/28/24 08:12 Dose: 50 mg Nicotine Polacrilex (Nicotine Polacrilex 2 Mg Gum) 2 mg BUCCAL Q2H PRN PRN Reason: Nicotine Cravings Last Admin: 10/28/24 12:04 Dose: 2 mg Nicotine Polacrilex (Nicotine Polacrilex Lozenge 2 Mg Lozenge) 2 mg BUCCAL Q2H PRN PRN Reason: Nicotine Cravings Last Admin: 10/28/24 14:12 Dose: 2 mg Olanzapine (Olanzapine 7.5 Mg Tablet) 7.5 mg PO BID PRN PRN Reason: agitation Last Admin: 10/27/24 11:28 Dose: 7.5 mg Trazodone HCl (Trazodone Hcl 50 Mg Tablet) 50 mg PO BEDTIME MRX1 PRN PRN Reason: Insomnia Last Admin: 10/27/24 22:10 Dose: 50 mg Venlafaxine HCl (Venlafaxine Hcl Er 75 Mg Cap.Er.24h) 75 mg PO DAILY MICHAEL Last Admin: 10/28/24 08:12 Dose: 75 mg Allergies Allergies Allergy/AdvReac Type Severity Reaction Status Date / Time No Known Allergies Allergy Verified 10/17/24 19:26 Assessment & Plan Assessment & Plan (1) MDD (major depressive disorder), recurrent severe, without psychosis: Status: Acute Code(s): F33.2 - Major depressive disorder, recurrent severe without psychotic features (2) PTSD (post-traumatic stress disorder): Status: Acute Code(s): F43.10 - Post-traumatic stress disorder, unspecified (3) Alcohol use disorder: Status: Acute Code(s): F10.90 - Alcohol use, unspecified, uncomplicated Plan Patient is a 39-year-old male with history of MDD, PTSD and alcohol use disorder who self presented to ER due to suicidal ideation secondary to worsening depression, anxiety and homelessness. Plan: CV 15 minute safety checks Continue home medications CIWA protocol Encourage groups Referral to outpatient psychiatric providers Referral to substance abuse program Discharge planning 10/19: Laying in bed sleeping most of morning. Patient reports feeling better today; he reports withdrawal symptoms have decreased.Continue CIWA. Reports sleeping well last night. denies SI/HI/VH/AH. Continue current tx plan. 10/20: Laying in bed. keeping to self. Patient reports feeling okay today; denies withdrawal symptoms, CIWA DC'd. Patient reports he is hoping to get into a program. denies SI/HI/VH/AH. Encouraged to get out of bed. Continue current tx plan. 10/21: Active on unit. keeping to self. reading in sensory room. Patient continues to reports feeling okay ; focused on getting into a substance abuse program. He reports sleeping well last night. denies SI/HI/VH/AH. Continue current tx plan. 10/22:Active on unit. attending groups. Patient continues to reports feeling okay ; he reports feeling upset because of the unit being loud . He continues focused on getting into a substance abuse program;social media campaign manager aware. denies SI/HI/VH/AH. Continue current tx plan. 10/23: Active on unit. attending groups. Patient continues focused on getting into a substance abuse program; pt stated, If I don't get into a program then I will go to my friends house in [place] since he is sober and stay with him . denies SI/HI/VH/AH. per nursing, slept 8 hours. Continue current tx plan. 10/24: Active on unit. attending groups. social with peers. Patient reports feeling better ; pt stated, I feel like the medication is starting to work . denies SI/HI/VH/AH. per social media campaign manager, pt was referred to [facility]; pt aware. Continue current tx plan. 10/25: Patient reports sleeping well last night. He feels medications are helping with his anxiety and depression. denies SI/HI/VH/AH. Plans to discharge to his friends house if no bed available at programs. Continue current tx plan. 10/26: Does feel agitated at times and Olanzapine been helpful and we will trial a slightly higher dose of 7.5 mg as needed. Hopeful he can continue Strattera as part of his discharge medications with prescriptions 10/27: no changes 10/28/24: Patient slept well, improving appetite, compliant with medications. Denies side effects. Reports improving in mood and depression. Denies safety concern. We discussed regarding Strattera was will not be prescribed today or tomorrow. Patient was not happy at the beginning, but understand the rationale of why can not prescribe it to him we do not have opportunities to monitor for side effects any happened when he leaves the facility. Patient is understandable. Patient advised to touch base with the outpatient provider regarding Strattera. Discussed with him regarding medication will send home tomorrow to prefer pharmacy. Patient is receptive. Wants to son nicotine lozenge for smoking cessation. No safety concerns. Patient will be staying with a friend who is safe to stay with. Patient educated on: medication risk/benefits and therapeutic strategies Informed Consent: understands Reason for continued inpatient stay Substantial Risk for: med/psych decompensation Time Spent With Patient Time: Total time managing care of this patient today ____ minutes.
[2024-10-28] MEDS: OLANZapine 7.5 MG TABLET PO (17:03)
[2024-10-28 19:49] VITALS: BP 141/81; PULSE 85; RESP 16; TEMP 36.9; O2SAT 98
[2024-10-29 07:50] VITALS: BP 102/60; PULSE 71; RESP 16; TEMP 36.7; O2SAT 96
[2024-10-29] MEDS: Venlafaxine HCl ER 75 MG CAP.ER.24H PO (08:30)
[2024-10-29] MEDS: Nicotine Polacrilex Lozenge 2 MG LOZENGE BUCCAL (08:42)
--- NOTE | 2024-10-29 09:16 | PM.PSYDC ---
DS: Providers Provider Date of Service: 10/29/24 Date of admission: 10/18/24 08:42 Date of discharge: 10/29/24 Primary care physician: Unknown Physician Attending physician on admission: Adrianne Mar Consults: 10/18/24 13:11 Addiction Medicine Provider Routine Consulting Provider: Addiction Covering Reason for consultation: Positive AUDIT-C Attending physician on discharge: Erika Holman DS: Diagnosis Discharge Diagnosis (1) MDD (major depressive disorder), recurrent severe, without psychosis: Status: Acute (2) PTSD (post-traumatic stress disorder): Status: Acute (3) Alcohol use disorder: Status: Acute DS: Medications Discharge Medications Home Medications: Previous Rx's ?Medication ?Instructions ?Recorded clonidine HCl 0.1 mg tablet 0.1 mg PO TID PRN Anxiety 30 days 10/28/24 #90 tabs hydroxyzine HCl 25 mg tablet 25 mg PO BID PRN mild anxiety #60 10/28/24 tabs naltrexone 50 mg tablet 50 mg PO DAILY MAT 30 days #30 tabs 10/28/24 nicotine (polacrilex) 2 mg buccal 2 mg buccal Q2H PRN Nicotine 10/28/24 lozenge Cravings #72 ea olanzapine 7.5 mg tablet 7.5 mg PO BID PRN agitation #30 10/28/24 tabs trazodone 50 mg tablet 50 mg PO BEDTIME PRN Insomnia 30 10/28/24 days #30 tabs venlafaxine 75 mg capsule,extended 75 mg PO DAILY Depression 30 days 10/28/24 release 24 hr #30 caps Mental Status Exam Mental Status Exam Narrative: Patient presents well-groomed, casually dressed. Affect is euthymic with full range. Speech is clear and coherent. Thought process is linear and logical. Thought content is appropriate and relevant. Patient denies suicidal or homicidal ideation intent or plan. No overt psychotic symptoms elicited. Insight is good. Judgment is good. DS: Summary Hospital Course Hospital Course: Per admitting provider note: Patient is a 39-year-old male with history of MDD, PTSD and alcohol use disorder who self presented to ER due to suicidal ideation secondary to worsening depression, anxiety and homelessness. Hospital course: 10/19: Laying in bed sleeping most of morning. Patient reports feeling better today; he reports withdrawal symptoms have decreased.Continue CIWA. Reports sleeping well last night. denies SI/HI/VH/AH. Continue current tx plan. 10/20: Laying in bed. keeping to self. Patient reports feeling okay today; denies withdrawal symptoms, FRANK [place]RAEL'jeremias. Patient reports he is hoping to get into a program. denies SI/HI/VH/AH. Encouraged to get out of bed. Continue current tx plan. 10/21: Active on unit. keeping to self. reading in sensory room. Patient continues to reports feeling okay ; focused on getting into a substance abuse program. He reports sleeping well last night. denies SI/HI/VH/AH. Continue current tx plan. 10/22:Active on unit. attending groups. Patient continues to reports feeling okay ; he reports feeling upset because of the unit being loud . He continues focused on getting into a substance abuse program;social sciences lecturer aware. denies SI/HI/VH/AH. Continue current tx plan. 10/23: Active on unit. attending groups. Patient continues focused on getting into a substance abuse program; pt stated, If I don't get into a program then I will go to my friends house in [place] since he is sober and stay with him . denies SI/HI/VH/AH. per nursing, slept 8 hours. Continue current tx plan. 10/24: Active on unit. attending groups. social with peers. Patient reports feeling better ; pt stated, I feel like the medication is starting to work . denies SI/HI/VH/AH. per social sciences lecturer, pt was referred to [facility]; pt aware. Continue current tx plan. 10/25: Patient reports sleeping well last night. He feels medications are helping with his anxiety and depression. denies SI/HI/VH/AH. Plans to discharge to his friends house if no bed available at programs. Continue current tx plan. 10/26: Does feel agitated at times and Olanzapine been helpful and we will trial a slightly higher dose of 7.5 mg as needed. Hopeful he can continue Strattera as part of his discharge medications with prescriptions 10/27: no changes 10/28/24: Patient slept well, improving appetite, compliant with medications. Denies side effects. Reports improving in mood and depression. Denies safety concern. We discussed regarding Strattera was will not be prescribed today or tomorrow. Patient was not happy at the beginning, but understand the rationale of why can not prescribe it to him we do not have opportunities to monitor for side effects any happened when he leaves the facility. Patient is understandable. Patient advised to touch base with the outpatient provider regarding Strattera. Discussed with him regarding medication will send home tomorrow to prefer pharmacy. Patient is receptive. Wants to son nicotine lozenge for smoking cessation. No safety concerns. Patient will be staying with a friend who is safe to stay with. 10/29/24: Review with patient again regarding medication sent to preferred pharmacy. Patient appreciate the help. He is ready to be discharged with now any safety concern. He will take the bus home to his roommate. Advised patient continued to call outpatient psychiatric services that provided to him until he gets appointments and he is not able to get more medication after 30 days' supply. Patient is aware and receptive to the plan. Time spent discussing smoking cessation with patient: 3 to 10 minutes Status at Discharge Cognitive/behavioral status at discharge: CONDITION ON DISCHARGE: CURRENT STATUS IT RELATES TO ADMISSION CRITERIA: Stable, improved. Improvements in depression, anxiety, and suicidal ideation. Improvements in sleep, energy, and appetite. and no hallucination or paranoia/delusional thought. Functional status at discharge: independent ambulation Overall status at discharge: patient is back to baseline Time Spent with Patient Time attestation: Total time managing care of this patient today ____ minutes. Time spent: Greater than 30 minutes Discharge Plan Discharge Anticipated Discharge Date/Time: 10/29/24 09:15 Patient Disposition: Home, Self-Care Discharge Diagnosis: PTSD, MDD without psychotic features Ref[facility]: [facility]) [Other] - 1 Week Referral Note: *Please follow up with the [facility] regarding your referral. You should check in once or twice a week to remain on the waiting list. Therapy & Psychiatry [Other] - 1 Week Referral Note: *You can present to the clinic above, Monday through Monday during the hours of 8am and 8pm, in order to obtain outpatient mental health providers. [facility] [Provider Group] - 1 Week Referral Note: 10-25-24 [facility] was added to patients chart. Please call [phone] to schedule a follow up appt within 7-10 days of discharge. No release or PCP on file. Discharge Medications: New nicotine (polacrilex) 2 mg Lozenge 2 mg buccal Q2H PRN (Reason: Nicotine Cravings) Qty: 72 0RF hydroxyzine HCl 25 mg Tablet 25 mg PO BID PRN (Reason: mild anxiety) Qty: 60 0RF olanzapine 7.5 mg Tablet 7.5 mg PO BID PRN (Reason: agitation) Qty: 30 0RF Continued clonidine HCl 0.1 mg Tablet 0.1 mg PO TID PRN (Reason: Anxiety) 30 Days Qty: 90 0RF Protocol: Hold for SBP< HOLD for SBP < : 90 venlafaxine 75 mg Capsule,Extended Release 24hr 75 mg PO DAILY 30 Days Qty: 30 0RF trazodone 50 mg Tablet 50 mg PO BEDTIME PRN (Reason: Insomnia) 30 Days Qty: 30 0RF naltrexone 50 mg Tablet 50 mg PO DAILY 30 Days Qty: 30 0RF Discontinued acetaminophen 325 mg Tablet 650 mg PO Q6H PRN (Reason: Headache/Pain Mild Scale (1-3)) 30 Days Qty: 30 0RF cyclobenzaprine 5 mg Tablet 5 mg PO DAILY PRN (Reason: Muscle Spasm) 30 Days Qty: 30 0RF atomoxetine 80 mg capsule 80 mg PO DAILY 30 Days Qty: 30 0RF Rx Instructions: start after finishing one week of atomoxetine 40 mg daily. Ensure Liquid 1 ea PO TID 30 Days Qty: 5688 3RF Ensure Liquid 1 ea PO BID 12 Days Qty: 5688 0RF Discharge Orders: Discharge Order (Routine); Ordered 10/29/24 Ordered By: Erika Holman Diet: Regular diet Activity on Discharge: As tolerated Stand Alone Forms: Patient Portal Discharge page, Community Support Print Language: Surinamese Care Plan Goals: Maintain mood and safe behaviors Take medications as prescribed Continue to pursue sobriety Practice coping skills Continue with outpatient providers and reach out to them as needed Health Concerns: Mood stability and behaviors Sobriety Plan of Treatment: Follow up with your PCP, psychiatric provider and other outpatient providers regarding above concerns Take medications as prescribed Assessment: Assessment: Risk assessment at time of discharge: Patient was interviewed prior to discharge and found to be fully oriented and without any SI or HI. Patient has improved insight and judgment and wants to continue treatment. Patient is not in imminent risk of harm to self or others and has a safety plan that includes presenting to the closest ER or calling 911 if feeling unsafe. Patient has been observed closely by nursing and unit staff throughout admission; patient has not engaged in any behaviors that suggest dangerousness to self or others and has demonstrated appropriate behaviors and impulse control Discharge Date/Time: 10/29/24 10:19
== END 2024-10-29 10:19 | disposition home or self-care (01) | DRG 751 ==
LOC: HO.ED 22:19 → HO.PADLT16 10-18 11:06
PROVIDERS: Physician Assistant Medical; Admitting Provider Nurse Practitioner Psychiatric/Mental Health; Emergency Provider Student in an Organized Health Care Education/Training Program; Visit Provider Psychiatry & Neurology Psychiatry
DX: F33.2 Major depressive disorder, recurrent severe without psychotic features (principal); Q87.40 Marfan syndrome, unspecified; R45.851 Suicidal ideations; F43.10 Post-traumatic stress disorder, unspecified; F10.90 Alcohol use, unspecified, uncomplicated; Y90.8 Blood alcohol level of 240 mg/100 ml or more; Z91.148 Patient's other noncompliance with medication regimen for other reason; Z79.899 Other long term (current) drug therapy
CPT/HCPCS: 36415; 80053; 80061; 80307; 81001; 82248; 82550; 83036; 83690; 83735; 84439; 84443; 85025; 93005; 99285; S9485

== ENCOUNTER → 2024-10-17 19:29 | Outpatient (BNV) | payer MEDICAID, SELFPAY | PROVIDERS: Admitting Provider Nurse Practitioner Psychiatric/Mental Health; Emergency Provider Student in an Organized Health Care Education/Training Program; Visit Provider Internal Medicine | DX: Z13.6 Encounter for screening for cardiovascular disorders (principal) | CPT/HCPCS: 93010 ==

== ENCOUNTER → 2024-10-18 08:42 | Outpatient (BNV) | payer OTHER, SELFPAY | PROVIDERS: Admitting Provider Nurse Practitioner Psychiatric/Mental Health; Emergency Provider Student in an Organized Health Care Education/Training Program; Responsible Provider Registered Nurse; Visit Provider Registered Nurse | DX: F33.2 Major depressive disorder, recurrent severe without psychotic features (principal); F43.11 Post-traumatic stress disorder, acute; F10.90 Alcohol use, unspecified, uncomplicated | CPT/HCPCS: 99231; 99232; 99233 ==

== ENCOUNTER 2024-11-19 16:30 | Outpatient (BNV) | payer MEDICAID, SELFPAY | END 2024-11-20 13:44 | PROVIDERS: Admitting Provider Psychiatry & Neurology Psychiatry; Visit Provider Internal Medicine | DX: R94.31 Abnormal electrocardiogram [ECG] [EKG] (principal) | CPT/HCPCS: 93010 ==

== ENCOUNTER 2024-11-19 16:30 | Inpatient (IN) | payer OTHER, SELFPAY ==
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
--- OUTSIDE RECORDS SUMMARY | 2024-11-02 17:00 | XMS_ITS ---
Author Organization [facility] Address [address] [place] [id number] Care Team Providers Care Combining Machine Operator Name Role Phone Ruchi Franklin Primary Care Provider [phone] Migration, Provider Unavailable Unavailable REASON FOR VISIT Multum To [facility] Conversion Encounter Medications Medication SIG (Take, Route, Frequency, Duration) Notes Start Date End Date Status ATOMOXETINE 80 MG 1 CAP(S) ORALLY ONCE A DAY (IN THE MORNING) *Please review for potential replacement for e-prescription and drug interaction check* Active cloNIDine HCl 0.1 MG 1 tab(s) orally threes times a day as needed Active Venlafaxine HCl ER 150 MG 1 cap(s) orally once a day Active Nicotine 4 MG DIRECTED BY TRANSMUCOSAL ADMINISTRATION NEEDED EVERY 2 HOURS for 30 DAYS *Please review and pick [facility]. If intended option is not shown, discontinue and re-order from Quick Search* 03/30/2023 Active hydrOXYzine HCl 50 MG 1 tab(s) orally twice a day PRN Active Melatonin 3 MG 1 cap(s) orally once a day (at bedtime) Active Naltrexone HCl 50 MG 1 tab(s) orally once a day Active traZODone HCl 50 MG 1 tab orally at bedtime PRN Active Encounters Encounter Location Date Provider Diagnosis [address] [id number] 11/02/2024 Provider Migration Plan Of Treatment Next Appt Details Provider Name:Phan Pineda, 12/03/2024 10:00:00 AM, [address] [place] [address], [phone], Provider Name:Ruchi lópez, 12/05/2024 10:00:00 AM, [address] [place], [phone], Progress Notes * Igor MARIA IIIDOB: 1985 (39 yo M)Acc No.[id number]:11/02/2024 Patient: Igor COPELAND III Provider: :1985 A ge:39 Y S ex:Male Date:11/02/2024 Address:[address] [place] [id number] Pcp:Ruchi Franklin Subjective: * Chief Complaints: * 1 . Multum To [facility] Conversion Encounter. * Medical History: * Medications: T aking ATOMOXETINE 80 MG CAPSULE 1 CAP(S) ORALLY ONCE A DAY (IN THE MORNING) , Notes to Pharmacist: *Please review for potential replacement for e-prescription and drug interaction check*, Taking Melatonin 3 MG Tablet 1 cap(s) orally once a day (at bedtime) , Taking traZODone HCl 50 MG Tablet 1 tab orally at bedtime PRN , Taking Naltrexone HCl 50 MG Tablet 1 tab(s) orally once a day , Taking Venlafaxine HCl ER 150 MG Capsule Extended Release 24 Hour 1 cap(s) orally once a day , Taking cloNIDine HCl 0.1 MG Tablet 1 tab(s) orally threes times a day as needed , Taking hydrOXYzine HCl 50 MG Tablet 1 tab(s) orally twice a day PRN , Taking Nicotine 4 MG LOZENGE DIRECTED BY TRANSMUCOSAL ADMINISTRATION NEEDED EVERY 2 HOURS , Notes to Pharmacist: *Please review and pick [facility]. If intended option is not shown, discontinue and re-order from Quick Search* Objective: * Vitals: Assessment: Plan: * Treatment: * Images: Billing Information: * Visit Code: * Procedure Codes: * Electronic signature of Prov ider Migration on 11/19/2024 at 05:15 PM EDT Sign off status: Pending * Provider: Date: 11/02/2024 Generated for Katrin goodrich/Andrey/Carlossmitting on: 11/19/2024 05:15 PM EDT
--- OUTSIDE RECORDS SUMMARY | 2024-11-18 04:51 | XMS_ITS ---
Author Organization [facility] Address [address] [place] [phone] Care Team Providers Care Rehabilitation Attendant Name Role Phone Ruchi Franklin Primary Care Provider REASON FOR VISIT Med refills Encounters Encounter Location Date Provider Diagnosis [address] [phone] 11/18/2024 Ruchi Franklin Plan Of Treatment Next Appt Details Provider Name:Phan Pineda, 12/03/2024 10:00:00 AM, [address] [place] [address], [phone], Provider Name:Ruchi lópez, 12/05/2024 10:00:00 AM, [address] [place] [address], [phone], Progress Notes * CANDACEIgor ANDREWS IIIDOB: 1985 (39 yo M)Acc No.[id number]:11/18/2024 Patient: Igor COPELAND III :1985 A ge:39 Y S ex:Male Address:[address] [place] [id number] * true * Date: Generated for Katrin goodrich/Andrey/eTransmitting on: 0 11/19/2024 05:16 PM EDT
[2024-11-19 16:44] VITALS: BP 138/93; PULSE 93; RESP 17; TEMP 37; O2SAT 97
--- OUTSIDE RECORDS SUMMARY | 2024-11-19 17:16 | XMS_ITS | Patient Health Record ---
Author Organization [facility] Address [address] [place] [address] Care Team Providers Care Computer Assembler Name Role Phone Ruchi Franklin Primary Care Provider Migration, Provider Unavailable Unavailable Allergies No Known Allergies Reason For Referral No Information Medications Medication SIG (Take, Route, Frequency, Duration) Notes Start Date End Date Status Melatonin 3 MG 1 cap(s) orally once a day (at bedtime) Active ATOMOXETINE 80 MG 1 CAP(S) ORALLY ONCE A DAY (IN THE MORNING) *Please review for potential replacement for e-prescription and drug interaction check* Active cloNIDine HCl 0.1 MG 1 tab(s) orally threes times a day as needed Active Venlafaxine HCl ER 150 MG 1 cap(s) orally once a day Active Naltrexone HCl 50 MG 1 tab(s) orally once a day Active traZODone HCl 50 MG 1 tab orally at bedtime PRN Active Nicotine 4 MG DIRECTED BY TRANSMUCOSAL ADMINISTRATION NEEDED EVERY 2 HOURS for 30 DAYS *Please review and pick correct strength-formulati on from [employer] options. If intended option is not shown, discontinue and re-order from Quick Search* 03/30/2023 Active hydrOXYzine HCl 50 MG 1 tab(s) orally twice a day PRN Active Immunizations Vaccine Route Administration Date Status [...] [id number] 2 Heplisav-B IM Intramuscular 04/19/2023 Administered [facility] [id number] Heplisav-B IM Intramuscular 05/18/2023 Administered [facility] [id number] Social History Tobacco Use: Social History Observation Description Date Details (start date - stop date) Light tobacco s moker NA - NA Tobacco Use Assessment MU Question Answer Notes What is your current smoking status? light tobac co smoker smokes cigars Problems Problem Type SNOMED Code ICD Code Onset Dates Problem Status W/U Status Risk Notes Problem Vitamin D deficiency (83636244) Vitamin D deficiency, unspecified (E55.9) Active confirmed Problem Tobacco user (874724495) Nicotine dependence, other tobacco product, uncomplicated (F17.290) Active confirmed Problem Cervical radiculopathy (28227687) Radiculopathy, cervical region (M54.12) Active confirmed Problem Marfan's syndrome (69796482) Marfan's syndrome with skeletal manifestation (Q87.43) Active confirmed Problem Body mass index 20-24 - normal (169999805) Body mass index [BMI] 24.0-24.9, adult (Z68.24) Active confirmed Problem Low back pain (817515969) Low back pain, unspecified (M54.50) Active confirmed Problem Sheltered homelessness (432467000275800) Sheltered homelessness (Z59.01) Active confirmed Problem Current drinker of alcohol (finding) (412104) Alcohol use, unspecified, uncomplicated (F10.90) Active confirmed Encounters Encounter Location Date Provider Diagnosis [facility] [address] [place] [address] 11/02/2024 Provider Migration [facility] [address] [place] [address] 11/20/2023 Ruchi Franklin [address] [place] [address] 11/24/2023 Ruchi Franklin [facility] [address] [place] [phone] 11/18/2024 Ruchi Franklin Assessments Encounter Date Diagnosis (ICD Code) Assessment Notes Treatment Notes Treatment Clinical Notes Section Notes 04/02/2024 Other Plan Of Treatment Pending Test Test Name Order Date HEPATITIS A,B,C PROFILE 03/30/2023 Next Appt Details Provider Name:Phan Pineda, 12/03/2024 10:00:00 AM, [address] [place] [address], [phone], Provider Name:Ruchi Hart maribel, 12/05/2024 10:00:00 AM, [address] [place] [address], [phone], Insurance Providers Payer Name Payer Address Payer Phone Subscriber Number Group Number Insured Name Patient Relationship to Insured Coverage Start Date Coverage End Date [place] Medicaid C3 [address] [place], [place] [id number] Igor Briseno Self - patient is the insured 3 Medical (General) History Medical History History ICD Code ADHD Social Anxiety Disorder PTSD ETOH abuse Marphan's Syndrome anxiety depression Hospitalization History Reason Date(Month/Year) Multiple Psych/Detox admits 2 x in [facility] and 1 x at [facility]
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
[2024-11-19] MEDS: Nicotine Polacrilex Lozenge 2 MG LOZENGE BUCCAL ×2 (19:08→21:35)
[2024-11-19 19:30] VITALS: TEMP 37.8
[2024-11-19 20:40] VITALS: BP 145/83
[2024-11-19 21:56] VITALS: BP 133/78; PULSE 96; RESP 18; TEMP 37.3; O2SAT 97
--- NOTE | 2024-11-20 | ECG_ITS ---
Test Reason : restart antipsych med Blood Pressure : */* mmHG Vent. Rate : 96 BPM Atrial Rate : 96 BPM P-R Int : 162 ms QRS Dur : 84 ms QT Int : 354 ms P-R-T Axes : 59 40 59 degrees QTcB Int : 447 ms Normal sinus rhythm Normal ECG When compared with ECG of 17-Oct-2024 19:56, No significant change was found Referred By: Erika Holman Electronically Signed By: SUSI DONALD
[2024-11-20 08:00] VITALS: BP 127/82; PULSE 84; TEMP 36.5; O2SAT 97
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
[2024-11-20 08:42] VITALS: BP 127/82
[2024-11-20] MEDS: Venlafaxine HCl ER 75 MG CAP.ER.24H PO (08:42)
[2024-11-20 09:08] LABS: Hemoglobin A1C 129.4767 umol/L; Total Hemoglobin (HGBA1C) 3940.4464 umol/L
[2024-11-20 09:56] LABS: Alanine Aminotransferase 48 U/L (0-40); Albumin Level 4.6 g/dL (3.5-5.0); Alkaline Phosphatase 116 U/L (39-117); Aspartate Amino Transferase 48 U/L (5-37); Cholesterol 271 mg/dL (<200); HDL Cholesterol 71 mg/dL (>40); Magnesium 2.0 mg/dL (1.6-2.6); Total Protein 7.1 g/dL (6.5-8.0); Triglycerides 110 mg/dL (<150)
[2024-11-20 10:14] LABS: Free T4 (Free Thyroxine) 0.95 ng/dL (0.71-1.85); Thyroid Stimulating Hormone 2.73 uIU/mL (0.32-4.0)
[2024-11-20 10:37] LABS: Folate 12.9 ng/mL (> or = 4.0); Vitamin B12 1019 pg/mL (200-900)
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
[2024-11-20] MEDS: guanFACINE HCl ER 1 MG TAB.ER.24H PO (12:22)
[2024-11-20] MEDS: OLANZapine 7.5 MG TABLET PO (14:44)
[2024-11-20] MEDS: Nicotine Polacrilex Lozenge 2 MG LOZENGE BUCCAL (14:45)
[2024-11-20 20:00] VITALS: BP 121/76; PULSE 104; TEMP 36.9; O2SAT 97
[2024-11-20 21:23] VITALS: BP 121/76
[2024-11-21] MEDS: Nicotine Polacrilex Lozenge 2 MG LOZENGE BUCCAL ×6 (06:46→22:14)
[2024-11-21 08:00] VITALS: BP 133/94; PULSE 85; RESP 16; TEMP 36.1; O2SAT 98
[2024-11-21 08:43] VITALS: BP 133/94
[2024-11-21] MEDS: guanFACINE HCl ER 1 MG TAB.ER.24H PO (08:43)
[2024-11-21] MEDS: Venlafaxine HCl ER 75 MG CAP.ER.24H PO (08:43)
--- NOTE | 2024-11-21 11:01 | PC.NURSE ---
Pt continues to deny experiencing EtOH withdrawal symtpoms, CIWAS scores remain low 1, 1
[2024-11-21] MEDS: OLANZapine 7.5 MG TABLET PO (14:49)
--- NOTE | 2024-11-21 15:34 | P.PNPSI_ITS ---
Subjective Subjective Date of Service: 11/21/24 Reason For Visit: unsepcified depressive d/o, alcohol use disorder Subjective Notes: Sol Warning and Conditional Voluntary Healthcare Proxy: No Guardianship: No Medical Problems Affecting Mental Status: No Interim History: Medical record and nursing notes reviewed; case discussed during rounds with team/nursing staff, and met with patient for supportive therapy/psychoeducation, as well as medication management. Meet with patient in Group room, report improving in mood and alcohol W/D symptoms. Report he has been active in groups this morning. Report some good effects from Guanfacine ER prescribed yesterday. Report too early to say but he was able to focus to read something and not get distracted by the noise around him. Report passive SI without plan or intent. He thinks Treatment program for alcohol use would be better plan for him. Report he always anxious and feel like Zyprexa is very helpful to help control it. Discuss with patient regarding Buspar for anxiety, patient is receptive with the plan. He is aware of Ativan x2 doses to help with W/D symptoms until tomorrow. Educate patient on mcc affect of alcohol on hand tremor which could be a permanent damage. Patient also asks for ensure to help him gain some weight. Also increase effexor XR for depression. Medication Compliance: Yes Side effects from medications: No Attending Groups: Yes Review of Systems Acute medical concerns: No Medical Review of Systems: unchanged Review of Systems Review of Systems Constitutional: Denies fatigue and Denies fever(s) Cardiovascular: Denies chest pain and Denies dyspnea Respiratory: Denies dyspnea Gastrointestinal: Denies abdominal pain Psychiatric: denies suicidal ideation Endocrine: Denies fatigue Yes all other systems are reviewed and are negative Mental Status Exam Mental Status Exam Narrative: Patient is alert and oriented x4 ; behavior is anxious but cooperative, mild to moderate anxiety and depression, some mild alcohol W/D symptoms; patient is not in distress; dressed in hospital attire with kempt hair and adequate hygiene; mood is described as better and affect congruent; eye contact appropriate; Speech is normal rate, volume and prosody and not pressured; no psychomotor stacie tation/retardation present; thought process is organized and goal directed; Thought content is WNL, pertinent to relevant topics and without any delusional content, paranoid ideation or grandiosity; denies any SIB/HI but report passive SI without plan/intent. Denies AH and there is no evidence of perceptual disturbance. Patient's insight and judgment poor. Diagnostics Vital Signs (24Hr): Vital Signs - 24 hr 11/20/24 20:00 11/20/24 21:23 11/21/24 08:00 Temperature 98.5 F 96.9 F Pulse Rate 104 H 85 Respiratory Rate 16 Blood Pressure 121/76 121/76 133/94 H Pulse Oximetry 97 98 Oxygen Delivery Method Room Air Room Air 11/21/24 08:43 Temperature Pulse Rate Respiratory Rate Blood Pressure 133/94 H Pulse Oximetry Oxygen Delivery Method Labs Labs: Laboratory Results - last 48 hr 11/20/24 08:30 Estimat Average Glucose 103 Hemoglobin A1c % 5.2 Magnesium 2.0 Total Bilirubin 1.3 H Direct Bilirubin 0.4 AST 48 H ALT 48 H Alkaline Phosphatase 116 Total Protein 7.1 Albumin 4.6 Triglycerides 110 Cholesterol 271 H LDL Cholesterol, Calc 178 H HDL Cholesterol 71 Vitamin B12 1019 H Folate 12.9 TSH 2.73 Free T4 0.95 Medications Medications Current Medications Acetaminophen (Acetaminophen 325 Mg Tablet) 650 mg PO Q6H PRN PRN Reason: Headache/Pain, Scale 1-10 Last Admin: 11/19/24 19:05 Dose: 650 mg Al Hydroxide/Mg Hydroxide (Magnesium Hydrox/Alum Hydrox 30 Ml Oral.Susp) 30 ml PO Q6H PRN PRN Reason: Heartburn/Nausea Clonidine HCl (Clonidine Hcl 0.1 Mg Tablet) 0.1 mg PO BID [facility]; Protocol Last Admin: 11/21/24 08:43 Dose: 0.1 mg Guanfacine HCl (Guanfacine Hcl Er 1 Mg Tab.Er.24h) 1 mg PO DAILY [facility] Last Admin: 11/21/24 08:43 Dose: 1 mg Hydroxyzine HCl (Hydroxyzine Hcl 50 Mg Tablet) 50 mg PO BID PRN PRN Reason: mild anxiety Lorazepam (Lorazepam 0.5 Mg Tablet) 0.5 mg PO BID [facility] Stop: 11/22/24 12:00 Magnesium Hydroxide (Milk Of Magnesia 30 Ml Oral.Susp) 30 ml PO DAILY PRN PRN Reason: Constipation Nicotine Polacrilex (Nicotine Polacrilex 2 Mg Gum) 4 mg BUCCAL Q2H PRN PRN Reason: Nicotine Cravings Nicotine Polacrilex (Nicotine Polacrilex Lozenge 2 Mg Lozenge) 2 mg BUCCAL Q2H PRN PRN Reason: Nicotine Cravings Last Admin: 11/21/24 14:49 Dose: 2 mg Olanzapine (Olanzapine 7.5 Mg Tablet) 7.5 mg PO BID PRN PRN Reason: agitation Last Admin: 11/21/24 14:49 Dose: 7.5 mg Olanzapine (Olanzapine 5 Mg Tablet) 5 mg PO BEDTIME MICHAEL Last Admin: 11/20/24 21:23 Dose: 5 mg Ondansetron HCl (Ondansetron Odt 4 Mg Tab.Rapdis) 4 mg TRANSLINGU Q6H PRN PRN Reason: Nausea and Vomiting Thiamine HCl (Thiamine Hcl 100 Mg Tablet) 100 mg PO DAILY [facility] Last Admin: 11/21/24 08:43 Dose: 100 mg Trazodone HCl (Trazodone Hcl 50 Mg Tablet) 50 mg PO BEDTIME MRX1 PRN PRN Reason: Insomnia Last Admin: 11/20/24 21:23 Dose: 50 mg Venlafaxine HCl (Venlafaxine Hcl Er 75 Mg Cap.Er.24h) 75 mg PO DAILY [facility] Last Admin: 11/21/24 08:43 Dose: 75 mg Venlafaxine HCl (Venlafaxine Hcl Er 37.5 Mg Cap.Er.24h) 37.5 mg PO DAILY [facility] Allergies Allergies Allergy/AdvReac Type Severity Reaction Status Date / Time No Known Allergies Allergy Verified 10/17/24 19:26 Assessment & Plan Assessment & Plan (1) MDD (major depressive disorder), recurrent severe, without psychosis: Status: Acute Code(s): F33.2 - Major depressive disorder, recurrent severe without psychotic features (2) PTSD (post-traumatic stress disorder): Status: Acute Code(s): F43.10 - Post-traumatic stress disorder, unspecified (3) Alcohol abuse: Status: Acute Code(s): F10.10 - Alcohol abuse, uncomplicated Plan HPI: Patient is a 39 y.o single, Singaporean speaking male with hx of MDD, anxiety, ADHD, and alcohol use d/o who presented to ED d/t increasing SI with plan to take a bunch of pills . Patient reports relapse on alcohol and has been drinking heavily the past couple of months with up to 1/2 of gallon of Vodka daily . On M5: patient reports reasons for this admission is that he stopped taking meds and stared drinking again with increase in SI. Report he has been drinking heavily the past couple of weeks. Observed with moderate W/D symptoms during assessment with the presence of SW. Patient would like to get back home after discharge and stay sober instead of going to the program. He wants to get back to work and make some money to support himself. Patient currently homeless for the past 2 months and has been staying/sharing house with friends where they 'selling guns . Formulation/clinical reasoning: relapse on alcohol, stop taking meds, increase in depression and anxiety, feeling SI with plan. Given hx of PTSD, ADHD, MDD, patient would benefit in restrictive environment for his safety, monitor for alcohol W/D symptoms, medication management and refer patient back to OP psychiatric services with AA meeting which was helpful in the past, back to work so he can support himself to get a safer housing/place. Hospital course: 11/20/24: reviewed lab results with slightly elevated on liver enzyme, HLD. A1C WNL. Will recheck EKG. Continue with CIWA protocol with Ativan PRN for alcohol W/D. Zofran available for N/V Start on Guanfacine ER 1mg daily in the AM for ADHD. Zyprexa 5mg at HS with PRN 7.5mg BID available. Restart on other home meds: Clondine 0.1 BID for BP. Effexor 75mg daily for mood/depression. 11/21/24: Meet with patient in Group room, report improving in mood and alcohol W/D symptoms. Report he has been active in groups this morning. Report some good effects from Guanfacine ER prescribed yesterday. Report too early to say but he was able to focus to read something and not get distracted by the noise around him. Report passive SI without plan or intent. He thinks Treatment program for alcohol use would be better plan for him. Report he always anxious and feel like Zyprexa is very helpful to help control it. Discuss with patient regarding medication changes, patient is receptive with the plan. He is aware of Ativan x2 doses to help with W/D symptoms until tomorrow. 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 Patient also asks for ensure to help him gain some weight. Also increase effexor XR for depression. Ativan 0.5mg x2 doses only: end on 11/22/24 Increase Effexor XR to 112.5mg daily for depression Ensure BID as supplement D/C CIWA and Ativan PRN. Plan Patient on 15 minute checks for safety. Admitted to [facility]5. CV. Work with treatment team to do collateral and for FLU psychiatric appointments. Patient would like to treatment program for alcohol. Medication management Patient seen by hospitalist on 11/20. Repeat EKG as QTc was prolong in the ED (513). EKG 11/20/24: Patient educated on: diagnosis, medication risk/benefits, substance abuse and therapeutic strategies Reason for continued inpatient stay Substantial Risk for: med/psych decompensation Time Spent With Patient Time: Total time managing care of this patient today ____ minutes.
[2024-11-21 19:56] VITALS: BP 134/78; PULSE 125; TEMP 36.7; O2SAT 97
[2024-11-22 09:00] VITALS: BP 122/82; PULSE 91; TEMP 35.9; O2SAT 99
[2024-11-22] MEDS: guanFACINE HCl ER 1 MG TAB.ER.24H PO ×2 (09:20→12:09)
[2024-11-22] MEDS: Venlafaxine HCl ER 37.5 MG CAP.ER.24H PO (09:20)
[2024-11-22] MEDS: Venlafaxine HCl ER 75 MG CAP.ER.24H PO (09:21)
[2024-11-22] MEDS: Nicotine Polacrilex Lozenge 2 MG LOZENGE BUCCAL ×4 (09:34→20:20)
[2024-11-22] MEDS: OLANZapine 7.5 MG TABLET PO (17:54)
[2024-11-22 20:21] VITALS: BP 136/82
[2024-11-22 20:34] VITALS: BP 136/82; PULSE 108; RESP 16; TEMP 36.8
--- NOTE | 2024-11-22 21:25 | HO.PSYCHPN ---
Subjective Subjective Date of Service: 11/22/24 Reason For Visit: unsepcified depressive d/o, alcohol use disorder Subjective Notes: Conditional Voluntary Healthcare Proxy: No Guardianship: No Medical Problems Affecting Mental Status: No Interim History: Medical record and nursing notes reviewed; case discussed during rounds with team/nursing staff, and met with patient for supportive therapy/psychoeducation, as well as medication management. Patient slept through the night, good appetite, attended groups, social with peers, appropriate, reading at times to distract himself from anxiety and sometimes feeling overwhelmed with active unit and noises. Report moderate anxiety. Denies SI/SIB/HI/AVH. SW sent referral out to [facility] yesterday. Pending results. Discuss with patient regarding medication change to target ADHD and severe anxiety as well as depressive symptoms. Patient is receptive to the plan. Completed CIWA and received last dose of Ativan this morning. Met with addiction team, would like to restart on Naltrexone. Medication Compliance: Yes Side effects from medications: No Attending Groups: Yes Review of Systems Acute medical concerns: No Medical Review of Systems: unchanged Review of Systems Review of Systems Constitutional: Denies fatigue and Denies fever(s) Cardiovascular: Denies chest pain and Denies dyspnea Respiratory: Denies dyspnea Gastrointestinal: Denies abdominal pain Psychiatric: denies suicidal ideation Endocrine: Denies fatigue Yes all other systems are reviewed and are negative Mental Status Exam Mental Status Exam Narrative: Patient is alert and oriented x4 ; behavior is anxious but cooperative, moderate anxiety and depression, some mild alcohol W/D symptoms; patient is not in distress; dressed in hospital attire with kempt hair and adequate hygiene; mood is described as better and sometime feel overwhelmed and affect congruent; eye contact appropriate; Speech is normal rate, volume and prosody and not pressured; no psychomotor agitation/retardation present; thought process is organized and goal directed; Thought content is WNL, pertinent to relevant topics and without any delusional content, paranoid ideation or grandiosity; denies any SI/ SIB/HI. Denies AH and there is no evidence of perceptual disturbance. Patient's insight and judgment intact and improved. Diagnostics Vital Signs (24Hr): Vital Signs - 24 hr 11/22/24 09:00 11/22/24 20:21 11/22/24 20:34 Temperature 96.6 F L 98.2 F Pulse Rate 91 108 H Respiratory Rate 16 Blood Pressure 122/82 136/82 136/82 Pulse Oximetry 99 Oxygen Delivery Method Room Air Medications Medications Current Medications Acetaminophen (Acetaminophen 325 Mg Tablet) 650 mg PO Q6H PRN PRN Reason: Headache/Pain, Scale 1-10 Last Admin: 11/22/24 17:54 Dose: 650 mg Al Hydroxide/Mg Hydroxide (Magnesium Hydrox/Alum Hydrox 30 Ml Oral.Susp) 30 ml PO Q6H PRN PRN Reason: Heartburn/Nausea Clonidine HCl (Clonidine Hcl 0.1 Mg Tablet) 0.1 mg PO BID [facility]; Protocol Last Admin: 11/22/24 20:21 Dose: 0.1 mg Guanfacine HCl (Guanfacine Hcl Er 2 Mg Tab.Er.24h) 2 mg PO DAILY [facility] Hydroxyzine HCl (Hydroxyzine Hcl 50 Mg Tablet) 50 mg PO BID PRN PRN Reason: mild anxiety Last Admin: 11/22/24 12:09 Dose: 50 mg Magnesium Hydroxide (Milk Of Magnesia 30 Ml Oral.Susp) 30 ml PO DAILY PRN PRN Reason: Constipation Naltrexone HCl (Naltrexone Hcl 50 Mg Tablet) 50 mg PO DAILY [facility] Nicotine Polacrilex (Nicotine Polacrilex 2 Mg Gum) 4 mg BUCCAL Q2H PRN PRN Reason: Nicotine Cravings Nicotine Polacrilex (Nicotine Polacrilex Lozenge 2 Mg Lozenge) 2 mg BUCCAL Q2H PRN PRN Reason: Nicotine Cravings Last Admin: 11/22/24 20:20 Dose: 2 mg Olanzapine (Olanzapine 7.5 Mg Tablet) 7.5 mg PO BID PRN PRN Reason: agitation Last Admin: 11/22/24 17:54 Dose: 7.5 mg Olanzapine (Olanzapine 10 Mg Tablet) 10 mg PO BEDTIME [facility] Last Admin: 11/22/24 20:20 Dose: 10 mg Ondansetron HCl (Ondansetron Odt 4 Mg Tab.Rapdis) 4 mg TRANSLINGU Q6H PRN PRN Reason: Nausea and Vomiting Thiamine HCl (Thiamine Hcl 100 Mg Tablet) 100 mg PO DAILY [facility] Last Admin: 11/22/24 09:20 Dose: 100 mg Trazodone HCl (Trazodone Hcl 50 Mg Tablet) 50 mg PO BEDTIME MRX1 PRN PRN Reason: Insomnia Last Admin: 11/22/24 20:20 Dose: 50 mg Venlafaxine HCl (Venlafaxine Hcl Er 75 Mg Cap.Er.24h) 75 mg PO DAILY [facility] Last Admin: 11/22/24 09:21 Dose: 75 mg Venlafaxine HCl (Venlafaxine Hcl Er 37.5 Mg Cap.Er.24h) 37.5 mg PO DAILY [facility] Last Admin: 11/22/24 09:20 Dose: 37.5 mg Allergies Allergies Allergy/AdvReac Type Severity Reaction Status Date / Time No Known Allergies Allergy Verified 10/17/24 19:26 Assessment & Plan Assessment & Plan (1) MDD (major depressive disorder), recurrent severe, without psychosis: Status: Acute Code(s): F33.2 - Major depressive disorder, recurrent severe without psychotic features (2) PTSD (post-traumatic stress disorder): Status: Acute Code(s): F43.10 - Post-traumatic stress disorder, unspecified (3) Alcohol abuse: Status: Acute Code(s): F10.10 - Alcohol abuse, uncomplicated Plan HPI: Patient is a 39 y.o single, Swedish speaking male with hx of MDD, anxiety, ADHD, and alcohol use d/o who presented to ED d/t increasing SI with plan to take a bunch of pills . Patient reports relapse on alcohol and has been drinking heavily the past couple of months with up to 1/2 of gallon of Vodka daily . On M5: patient reports reasons for this admission is that he stopped taking meds and stared drinking again with increase in SI. Report he has been drinking heavily the past couple of weeks. Observed with moderate W/D symptoms during assessment with the presence of SW. Patient would like to get back home after discharge and stay sober instead of going to the program. He wants to get back to work and make some money to support himself. Patient currently homeless for the past 2 months and has been staying/sharing house with friends where they 'selling guns . Formulation/clinical reasoning: relapse on alcohol, stop taking meds, increase in depression and anxiety, feeling SI with plan. Given hx of PTSD, ADHD, MDD, patient would benefit in restrictive environment for his safety, monitor for alcohol W/D symptoms, medication management and refer patient back to OP psychiatric services with AA meeting which was helpful in the past, back to work so he can support himself to get a safer housing/place. Hospital course: 11/20/24: reviewed lab results with slightly elevated on liver enzyme, HLD. A1C WNL. Will recheck EKG. Continue with CIWA protocol with Ativan PRN for alcohol W/D. Zofran available for N/V Start on Guanfacine ER 1mg daily in the AM for ADHD. Zyprexa 5mg at HS with PRN 7.5mg BID available. Restart on other home meds: Clondine 0.1 BID for BP. Effexor 75mg daily for mood/depression. 11/21/24: Meet with patient in Group room, report improving in mood and alcohol W/D symptoms. Report he has been active in groups this morning. Report some good effects from Guanfacine ER prescribed yesterday. Report too early to say but he was able to focus to read something and not get distracted by the noise around him. Report passive SI without plan or intent. He thinks Treatment program for alcohol use would be better plan for him. Report he always anxious and feel like Zyprexa is very helpful to help control it. Discuss with patient regarding medication changes, patient is receptive with the plan. He is aware of Ativan x2 doses to help with W/D symptoms until tomorrow. 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 Patient also asks for ensure to help him gain some weight. Also increase effexor XR for depression. Ativan 0.5mg x2 doses only: end on 11/22/24 Increase Effexor XR to 112.5mg daily for depression Ensure BID as supplement D/C CIWA and Ativan PRN. 11/22/24: Patient slept through the night, good appetite, attended groups, social with peers, appropriate, reading at times to distract himself from anxiety and sometimes feeling overwhelmed with active unit and noises. Report moderate anxiety. Denies SI/SIB/HI/AVH. SW sent referral out to [facility] yesterday. Pending results. Discuss with patient regarding medication change to target ADHD and severe anxiety as well as depressive symptoms. Patient is receptive to the plan. Completed CIWA and received last dose of Ativan this morning. Met with addiction team, would like to restart on Naltrexone. Naltrexone 50mg daily alcohol craving. Increase Zyperxa up to 10mg at HS mood Increase Guanfacine up to 2mg daily for ADHD. Plan Patient on 15 minute checks for safety. Admitted to . CV. Work with treatment team to do collateral and for FLU psychiatric appointments. Patient would like to treatment program for alcohol. Referral sent to [facility] on 11/21 per SW: pending results. Medication management Patient seen by hospitalist on 11/20. Repeat EKG as QTc was prolong in the ED (513). EKG 11/20/24: Patient educated on: diagnosis, medication risk/benefits, substance abuse and therapeutic strategies Informed Consent: understands Reason for continued inpatient stay Substantial Risk for: med/psych decompensation Time Spent With Patient Time: Total time managing care of this patient today ____ minutes.
[2024-11-23 09:00] VITALS: BP 129/91; PULSE 90; RESP 18; TEMP 36.4; O2SAT 99
[2024-11-23] MEDS: Venlafaxine HCl ER 75 MG CAP.ER.24H PO (09:26)
[2024-11-23] MEDS: Venlafaxine HCl ER 37.5 MG CAP.ER.24H PO (09:26)
[2024-11-23] MEDS: guanFACINE HCl ER 2 MG TAB.ER.24H PO (09:26)
[2024-11-23] MEDS: Nicotine Polacrilex Lozenge 2 MG LOZENGE BUCCAL ×4 (09:27→19:23)
[2024-11-23] MEDS: OLANZapine 7.5 MG TABLET PO (14:54)
--- NOTE | 2024-11-23 17:12 | HO.PSYCHPN ---
Subjective Subjective Date of Service: 11/23/24 Reason For Visit: unsepcified depressive d/o, alcohol use disorder Subjective Notes: Conditional Voluntary Healthcare Proxy: No Guardianship: No Medical Problems Affecting Mental Status: No Interim History: Medical record and nursing notes reviewed; case discussed during rounds with team/nursing staff, and met with patient for supportive therapy/psychoeducation, as well as medication management. Visible, social and appropriate, denies SI/SIB/HI/AVH. Patient is anxious, overwhelmed with lots of yelling this morning. Patient is easily stimulated by active unit this morning. Slept well, compliant with meds and denies side effects, slept for 8 hours. Continue with current medication plan. Medication Compliance: Yes Side effects from medications: No Attending Groups: Yes Review of Systems Acute medical concerns: No Medical Review of Systems: unchanged Review of Systems Review of Systems Constitutional: Denies fatigue and Denies fever(s) Cardiovascular: Denies chest pain and Denies dyspnea Respiratory: Denies dyspnea Gastrointestinal: Denies abdominal pain Psychiatric: denies suicidal ideation Endocrine: Denies fatigue Yes all other systems are reviewed and are negative Mental Status Exam Mental Status Exam Narrative: Patient is alert and oriented x4 ; behavior is anxious but cooperative, moderate anxiety and depression; patient is not in distress; dressed in hospital attire with kempt hair and adequate hygiene; mood is described as very anxious and affect congruent; eye contact appropriate; Speech is normal rate, volume and prosody and not pressured; no psychomotor agitation/retardation present; thought process is organized and goal directed; Thought content is WNL, pertinent to relevant topics and without any delusional content, paranoid ideation or grandiosity; denies any SI/ SIB/HI. Denies AH and there is no evidence of perceptual disturbance. Patient's insight and judgment intact and improved. Diagnostics Vital Signs (24Hr): Vital Signs - 24 hr 11/22/24 20:21 11/22/24 20:34 11/23/24 09:00 Temperature 98.2 F 97.6 F Pulse Rate 108 H 90 Respiratory Rate 16 18 Blood Pressure 136/82 136/82 129/91 H Pulse Oximetry 99 Oxygen Delivery Method Room Air Medications Medications Current Medications Acetaminophen (Acetaminophen 325 Mg Tablet) 650 mg PO Q6H PRN PRN Reason: Headache/Pain, Scale 1-10 Last Admin: 11/23/24 14:44 Dose: 650 mg Al Hydroxide/Mg Hydroxide (Magnesium Hydrox/Alum Hydrox 30 Ml Oral.Susp) 30 ml PO Q6H PRN PRN Reason: Heartburn/Nausea Clonidine HCl (Clonidine Hcl 0.1 Mg Tablet) 0.1 mg PO BID [facility]; Protocol Last Admin: 11/23/24 09:26 Dose: 0.1 mg Guanfacine HCl (Guanfacine Hcl Er 2 Mg Tab.Er.24h) 2 mg PO DAILY [facility] Last Admin: 11/23/24 09:26 Dose: 2 mg Hydroxyzine HCl (Hydroxyzine Hcl 50 Mg Tablet) 50 mg PO BID PRN PRN Reason: mild anxiety Last Admin: 11/22/24 12:09 Dose: 50 mg Magnesium Hydroxide (Milk Of Magnesia 30 Ml Oral.Susp) 30 ml PO DAILY PRN PRN Reason: Constipation Naltrexone HCl (Naltrexone Hcl 50 Mg Tablet) 50 mg PO DAILY [facility] Last Admin: 11/23/24 09:26 Dose: 50 mg Nicotine Polacrilex (Nicotine Polacrilex 2 Mg Gum) 4 mg BUCCAL Q2H PRN PRN Reason: Nicotine Cravings Nicotine Polacrilex (Nicotine Polacrilex Lozenge 2 Mg Lozenge) 2 mg BUCCAL Q2H PRN PRN Reason: Nicotine Cravings Last Admin: 11/23/24 14:54 Dose: 2 mg Olanzapine (Olanzapine 7.5 Mg Tablet) 7.5 mg PO BID PRN PRN Reason: agitation Last Admin: 11/23/24 14:54 Dose: 7.5 mg Olanzapine (Olanzapine 10 Mg Tablet) 10 mg PO BEDTIME [facility] Last Admin: 11/22/24 20:20 Dose: 10 mg Ondansetron HCl (Ondansetron Odt 4 Mg Tab.Rapdis) 4 mg TRANSLINGU Q6H PRN PRN Reason: Nausea and Vomiting Thiamine HCl (Thiamine Hcl 100 Mg Tablet) 100 mg PO DAILY [facility] Last Admin: 11/23/24 09:26 Dose: 100 mg Trazodone HCl (Trazodone Hcl 50 Mg Tablet) 50 mg PO BEDTIME MRX1 PRN PRN Reason: Insomnia Last Admin: 11/22/24 20:20 Dose: 50 mg Venlafaxine HCl (Venlafaxine Hcl Er 75 Mg Cap.Er.24h) 75 mg PO DAILY [facility] Last Admin: 11/23/24 09:26 Dose: 75 mg Venlafaxine HCl (Venlafaxine Hcl Er 37.5 Mg Cap.Er.24h) 37.5 mg PO DAILY [facility] Last Admin: 11/23/24 09:26 Dose: 37.5 mg Allergies Allergies Allergy/AdvReac Type Severity Reaction Status Date / Time No Known Allergies Allergy Verified 10/17/24 19:26 Assessment & Plan Assessment & Plan (1) MDD (major depressive disorder), recurrent severe, without psychosis: Status: Acute Code(s): F33.2 - Major depressive disorder, recurrent severe without psychotic features (2) PTSD (post-traumatic stress disorder): Status: Acute Code(s): F43.10 - Post-traumatic stress disorder, unspecified (3) Alcohol abuse: Status: Acute Code(s): F10.10 - Alcohol abuse, uncomplicated Plan HPI: Patient is a 39 y.o single, Occitan speaking male with hx of MDD, anxiety, ADHD, and alcohol use d/o who presented to ED d/t increasing SI with plan to take a bunch of pills . Patient reports relapse on alcohol and has been drinking heavily the past couple of months with up to 1/2 of gallon of Vodka daily . On M5: patient reports reasons for this admission is that he stopped taking meds and stared drinking again with increase in SI. Report he has been drinking heavily the past couple of weeks. Observed with moderate W/D symptoms during assessment with the presence of SW. Patient would like to get back home after discharge and stay sober instead of going to the program. He wants to get back to work and make some money to support himself. Patient currently homeless for the past 2 months and has been staying/sharing house with friends where they 'selling guns . Formulation/clinical reasoning: relapse on alcohol, stop taking meds, increase in depression and anxiety, feeling SI with plan. Given hx of PTSD, ADHD, MDD, patient would benefit in restrictive environment for his safety, monitor for alcohol W/D symptoms, medication management and refer patient back to OP psychiatric services with AA meeting which was helpful in the past, back to work so he can support himself to get a safer housing/place. Hospital course: 11/20/24: reviewed lab results with slightly elevated on liver enzyme, HLD. A1C WNL. Will recheck EKG. Continue with CIWA protocol with Ativan PRN for alcohol W/D. Zofran available for N/V Start on Guanfacine ER 1mg daily in the AM for ADHD. Zyprexa 5mg at HS with PRN 7.5mg BID available. Restart on other home meds: Clondine 0.1 BID for BP. Effexor 75mg daily for mood/depression. 11/21/24: Meet with patient in Group room, report improving in mood and alcohol W/D symptoms. Report he has been active in groups this morning. Report some good effects from Guanfacine ER prescribed yesterday. Report too early to say but he was able to focus to read something and not get distracted by the noise around him. Report passive SI without plan or intent. He thinks Treatment program for alcohol use would be better plan for him. Report he always anxious and feel like Zyprexa is very helpful to help control it. Discuss with patient regarding medication changes, patient is receptive with the plan. He is aware of Ativan x2 doses to help with W/D symptoms until tomorrow. 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 Patient also asks for ensure to help him gain some weight. Also increase effexor XR for depression. Ativan 0.5mg x2 doses only: end on 11/22/24 Increase Effexor XR to 112.5mg daily for depression Ensure BID as supplement D/C CIWA and Ativan PRN. 11/22/24: Patient slept through the night, good appetite, attended groups, social with peers, appropriate, reading at times to distract himself from anxiety and sometimes feeling overwhelmed with active unit and noises. Report moderate anxiety. Denies SI/SIB/HI/AVH. SW sent referral out to [facility] yesterday. Pending results. Discuss with patient regarding medication change to target ADHD and severe anxiety as well as depressive symptoms. Patient is receptive to the plan. Completed CIWA and received last dose of Ativan this morning. Met with addiction team, would like to restart on Naltrexone. Naltrexone 50mg daily alcohol craving. Increase Zyperxa up to 10mg at HS mood Increase Guanfacine up to 2mg daily for ADHD. 11/23/24: Visible, social and appropriate, denies SI/SIB/HI/AVH. Patient is anxious, overwhelmed with lots of yelling this morning. Patient is easily stimulated by active unit this morning. Slept well, compliant with meds and denies side effects, slept for 8 hours. Continue with current medication plan Plan Patient on 15 minute checks for safety. Admitted to M5. CV. Work with treatment team to do collateral and for FLU psychiatric appointments. Patient would like to treatment program for alcohol. Referral sent to [facility] on 11/21 per SW: pending results. Medication management Patient seen by hospitalist on 11/20. Repeat EKG as QTc was prolong in the ED (513). EKG 11/20/24: NRS Patient educated on: diagnosis, medication risk/benefits, substance abuse and therapeutic strategies Informed Consent: understands Reason for continued inpatient stay Substantial Risk for: med/psych decompensation Time Spent With Patient Time: Total time managing care of this patient today ____ minutes.
[2024-11-23 20:19] VITALS: BP 126/81
[2024-11-23 20:34] VITALS: BP 126/81; PULSE 109; RESP 16; TEMP 37; O2SAT 96
[2024-11-24] MEDS: Nicotine Polacrilex Lozenge 2 MG LOZENGE BUCCAL ×5 (05:32→20:11)
[2024-11-24 07:46] VITALS: BP 116/74; PULSE 94; RESP 18; TEMP 36.6; O2SAT 100
[2024-11-24] MEDS: Venlafaxine HCl ER 75 MG CAP.ER.24H PO (08:15)
[2024-11-24] MEDS: guanFACINE HCl ER 2 MG TAB.ER.24H PO (08:15)
[2024-11-24] MEDS: Venlafaxine HCl ER 37.5 MG CAP.ER.24H PO (08:15)
[2024-11-24] MEDS: OLANZapine 7.5 MG TABLET PO (12:49)
--- NOTE | 2024-11-24 17:58 | P.PNPSI_ITS ---
Subjective Subjective Date of Service: 11/24/24 Reason For Visit: unsepcified depressive d/o, alcohol use disorder Subjective Notes: Conditional Voluntary Healthcare Proxy: No Guardianship: No Medical Problems Affecting Mental Status: No Interim History: Medical record and nursing notes reviewed; case discussed during rounds with team/nursing staff, and met with patient for supportive therapy/psychoeducation, as well as medication management. Slept 7 hours, compliant with medications. No side effects. Overwhelmed when peers are loud. Reports medication are helpful, continued to improve in anxiety and depression, but feeling irritable and agitated this morning but over all better and better with concentration and focus. Waiting for placement at [facility]. He is receptive with medication plan Medication Compliance: Yes Side effects from medications: No Attending Groups: Yes Review of Systems Acute medical concerns: No Medical Review of Systems: unchanged Review of Systems Review of Systems Constitutional: Denies fatigue and Denies fever(s) Cardiovascular: Denies chest pain and Denies dyspnea Respiratory: Denies dyspnea Gastrointestinal: Denies abdominal pain Psychiatric: denies suicidal ideation Endocrine: Denies fatigue Yes all other systems are reviewed and are negative Mental Status Exam Mental Status Exam Narrative: Patient is alert and oriented x4 ; behavior is anxious but cooperative, improving in anxiety and depression; some irritability moment, patient is not in distress; dressed in hospital attire with kempt hair and adequate hygiene; mood is described as agitated and affect congruent; eye contact appropriate; Speech is normal rate, volume and prosody and not pressured; no psychomotor agitation/retardation present; thought process is organized and goal directed; Thought content is WNL, pertinent to relevant topics and without any delusional content, paranoid ideation or grandiosity; denies any SI/ SIB/HI. Denies AH and there is no evidence of perceptual disturbance. Patient's insight and judgment intact and improved. Diagnostics Vital Signs (24Hr): Vital Signs - 24 hr 11/23/24 20:19 11/23/24 20:34 11/24/24 07:46 Temperature 98.6 F 97.8 F Pulse Rate 109 H 94 Respiratory Rate 16 18 Blood Pressure 126/81 126/81 116/74 Pulse Oximetry 96 100 Oxygen Delivery Method Room Air Room Air Medications Medications Current Medications Acetaminophen (Acetaminophen 325 Mg Tablet) 650 mg PO Q6H PRN PRN Reason: Headache/Pain, Scale 1-10 Last Admin: 11/23/24 14:44 Dose: 650 mg Al Hydroxide/Mg Hydroxide (Magnesium Hydrox/Alum Hydrox 30 Ml Oral.Susp) 30 ml PO Q6H PRN PRN Reason: Heartburn/Nausea Clonidine HCl (Clonidine Hcl 0.1 Mg Tablet) 0.1 mg PO BID [facility]; Protocol Last Admin: 11/24/24 08:15 Dose: 0.1 mg Guanfacine HCl (Guanfacine Hcl Er 2 Mg Tab.Er.24h) 2 mg PO DAILY [facility] Last Admin: 11/24/24 08:15 Dose: 2 mg Hydroxyzine HCl (Hydroxyzine Hcl 50 Mg Tablet) 50 mg PO BID PRN PRN Reason: mild anxiety Last Admin: 11/24/24 15:34 Dose: 50 mg Magnesium Hydroxide (Milk Of Magnesia 30 Ml Oral.Susp) 30 ml PO DAILY PRN PRN Reason: Constipation Naltrexone HCl (Naltrexone Hcl 50 Mg Tablet) 50 mg PO DAILY [facility] Last Admin: 11/24/24 08:15 Dose: 50 mg Nicotine Polacrilex (Nicotine Polacrilex 2 Mg Gum) 4 mg BUCCAL Q2H PRN PRN Reason: Nicotine Cravings Nicotine Polacrilex (Nicotine Polacrilex Lozenge 2 Mg Lozenge) 2 mg BUCCAL Q2H PRN PRN Reason: Nicotine Cravings Last Admin: 11/24/24 15:34 Dose: 2 mg Olanzapine (Olanzapine 7.5 Mg Tablet) 7.5 mg PO BID PRN PRN Reason: agitation Last Admin: 11/24/24 12:49 Dose: 7.5 mg Olanzapine (Olanzapine 10 Mg Tablet) 10 mg PO BEDTIME [facility] Last Admin: 11/23/24 20:19 Dose: 10 mg Olanzapine (Olanzapine 5 Mg Tablet) 5 mg PO DAILY [facility] Ondansetron HCl (Ondansetron Odt 4 Mg Tab.Rapdis) 4 mg TRANSLINGU Q6H PRN PRN Reason: Nausea and Vomiting Thiamine HCl (Thiamine Hcl 100 Mg Tablet) 100 mg PO DAILY [facility] Last Admin: 11/24/24 08:15 Dose: 100 mg Trazodone HCl (Trazodone Hcl 50 Mg Tablet) 50 mg PO BEDTIME MRX1 PRN PRN Reason: Insomnia Last Admin: 11/23/24 20:19 Dose: 50 mg Venlafaxine HCl (Venlafaxine Hcl Er 75 Mg Cap.Er.24h) 75 mg PO DAILY [facility] Last Admin: 11/24/24 08:15 Dose: 75 mg Venlafaxine HCl (Venlafaxine Hcl Er 37.5 Mg Cap.Er.24h) 37.5 mg PO DAILY [facility] Last Admin: 11/24/24 08:15 Dose: 37.5 mg Allergies Allergies Allergy/AdvReac Type Severity Reaction Status Date / Time No Known Allergies Allergy Verified 10/17/24 19:26 Assessment & Plan Assessment & Plan (1) MDD (major depressive disorder), recurrent severe, without psychosis: Status: Acute Code(s): F33.2 - Major depressive disorder, recurrent severe without psychotic features (2) PTSD (post-traumatic stress disorder): Status: Acute Code(s): F43.10 - Post-traumatic stress disorder, unspecified (3) Alcohol abuse: Status: Acute Code(s): F10.10 - Alcohol abuse, uncomplicated Plan HPI: Patient is a 39 y.o single, Portuguese speaking male with hx of MDD, anxiety, ADHD, and alcohol use d/o who presented to ED d/t increasing SI with plan to take a bunch of pills . Patient reports relapse on alcohol and has been drinking heavily the past couple of months with up to 1/2 of gallon of Vodka daily . On M5: patient reports reasons for this admission is that he stopped taking meds and stared drinking again with increase in SI. Report he has been drinking heavily the past couple of weeks. Observed with moderate W/D symptoms during assessment with the presence of SW. Patient would like to get back home after discharge and stay sober instead of going to the program. He wants to get back to work and make some money to support himself. Patient currently homeless for the past 2 months and has been staying/sharing house with friends where they 'selling guns . Formulation/clinical reasoning: relapse on alcohol, stop taking meds, increase in depression and anxiety, feeling SI with plan. Given hx of PTSD, ADHD, MDD, patient would benefit in restrictive environment for his safety, monitor for alcohol W/D symptoms, medication management and refer patient back to OP psychiatric services with AA meeting which was helpful in the past, back to work so he can support himself to get a safer housing/place. Hospital course: 11/20/24: reviewed lab results with slightly elevated on liver enzyme, HLD. A1C WNL. Will recheck EKG. Continue with CIWA protocol with Ativan PRN for alcohol W/D. Zofran available for N/V Start on Guanfacine ER 1mg daily in the AM for ADHD. Zyprexa 5mg at HS with PRN 7.5mg BID available. Restart on other home meds: Clondine 0.1 BID for BP. Effexor 75mg daily for mood/depression. 11/21/24: Meet with patient in Group room, report improving in mood and alcohol W/D symptoms. Report he has been active in groups this morning. Report some good effects from Guanfacine ER prescribed yesterday. Report too early to say but he was able to focus to read something and not get distracted by the noise around him. Report passive SI without plan or intent. He thinks Treatment program for alcohol use would be better plan for him. Report he always anxious and feel like Zyprexa is very helpful to help control it. Discuss with patient regarding medication changes, patient is receptive with the plan. He is aware of Ativan x2 doses to help with W/D symptoms until tomorrow. Educate patient on snf affect of alcohol on hand tremor which could be a permanent damage. Patient also asks for ensure to help him gain some weight. Also increase effexor XR for depression. Ativan 0.5mg x2 doses only: end on 11/22/24 Increase Effexor XR to 112.5mg daily for depression Ensure BID as supplement D/C CIWA and Ativan PRN. 11/22/24: Patient slept through the night, good appetite, attended groups, social with peers, appropriate, reading at times to distract himself from anxiety and sometimes feeling overwhelmed with active unit and noises. Report moderate anxiety. Denies SI/SIB/HI/AVH. SW sent referral out to [facility] yesterday. Pending results. Discuss with patient regarding medication change to target ADHD and severe anxiety as well as depressive symptoms. Patient is receptive to the plan. Completed CIWA and received last dose of Ativan this morning. Met with addiction team, would like to restart on Naltrexone. Naltrexone 50mg daily alcohol craving. Increase Zyperxa up to 10mg at HS mood Increase Guanfacine up to 2mg daily for ADHD. 11/23/24: Visible, social and appropriate, denies SI/SIB/HI/AVH. Patient is anxious, overwhelmed with lots of yelling this morning. Patient is easily stimulated by active unit this morning. Slept well, compliant with meds and denies side effects, slept for 8 hours. Continue with current medication plan 11/24/24:Slept 7 hours, compliant with medications. No side effects. Overwhelm ed when peers are loud. Reports medication are helpful, continued to improve in anxiety and depression, but feeling irritable and agitated this morning but over all better and better with concentration and focus. Waiting for placement at [facility]. He is receptive with medication plan Increase zyprexa up to 15mg total in divided dose for severe anxiety. Plan Patient on 15 minute checks for safety. Admitted to . CV. Work with treatment team to do collateral and for FLU psychiatric appointments. Patient would like to treatment program for alcohol. Referral sent to [facility] on 11/21 per SW: pending results. Medication management Patient seen by hospitalist on 11/20. Repeat EKG as QTc was prolong in the ED (513). EKG 11/20/24: NRS Patient educated on: diagnosis, medication risk/benefits, substance abuse and therapeutic strategies Informed Consent: understands Reason for continued inpatient stay Substantial Risk for: med/psych decompensation Time Spent With Patient Time: Total time managing care of this patient today ____ minutes.
[2024-11-24 19:38] VITALS: BP 127/78; PULSE 94; RESP 15; TEMP 37.1; O2SAT 98
[2024-11-25 08:00] VITALS: BP 130/91; BP 131/93; PULSE 84; RESP 18; TEMP 36.6; O2SAT 97
[2024-11-25] MEDS: Venlafaxine HCl ER 75 MG CAP.ER.24H PO (08:00)
[2024-11-25] MEDS: guanFACINE HCl ER 2 MG TAB.ER.24H PO (08:00)
[2024-11-25] MEDS: Venlafaxine HCl ER 37.5 MG CAP.ER.24H PO (08:00)
--- NOTE | 2024-11-25 10:21 | HO.PSYCHPN ---
Subjective Subjective Date of Service: 11/25/24 Reason For Visit: unsepcified depressive d/o, alcohol use disorder Subjective Notes: Conditional Voluntary Healthcare Proxy: No Guardianship: No Medical Problems Affecting Mental Status: No Interim History: Edward reports feeling well. Medications are tolerated and without adverse effects. Applications are pending with [facility] and [facility] as pt declined other [facility] referrals. Discussed how an increase in noise on the unit increases his stress and makes him feel lightheaded at times, however, regime is helpful in managing these symptoms. Denies SI, HI, AH, VH. No acute sx of priscila or psychosis. Medication Compliance: Yes Side effects from medications: No Attending Groups: Intermittent Review of Systems Acute medical concerns: No Medical Review of Systems: unchanged Review of Systems Review of Systems Denies Mental Status Exam Mental Status Exam Patient Appearance: Appropriate Patient Orientation: Person, Place, Time and Situation Level of Consciousness: Alert Patient Behavior: Cooperative Mood Description: Constricted Affect Description: Constricted Patient Cognition Impaired: No Ability to Follow Directions: Good Speech Pattern: Spontaneous Speech Memory Description: Intact Hallucinations: None Delusions: Not Present Thought Process: Intact Thought Content: positive for Intact and positive for Suicidal Ideation (denies) Depressive Symptoms: Thoughts of /Suicide (denies) Judgement: Good Diagnostics Vital Signs (24Hr): Vital Signs - 24 hr 11/24/24 19:38 11/25/24 08:00 11/25/24 08:00 Temperature 98.8 F 97.9 F Pulse Rate 94 84 Respiratory Rate 15 18 Blood Pressure 127/78 130/91 H 131/93 H Pulse Oximetry 98 97 Oxygen Delivery Method Room Air Medications Medications Current Medications Acetaminophen (Acetaminophen 325 Mg Tablet) 650 mg PO Q6H PRN PRN Reason: Headache/Pain, Scale 1-10 Last Admin: 11/23/24 14:44 Dose: 650 mg Al Hydroxide/Mg Hydroxide (Magnesium Hydrox/Alum Hydrox 30 Ml Oral.Susp) 30 ml PO Q6H PRN PRN Reason: Heartburn/Nausea Clonidine HCl (Clonidine Hcl 0.1 Mg Tablet) 0.1 mg PO BID [facility]; Protocol Last Admin: 11/25/24 08:00 Dose: 0.1 mg Guanfacine HCl (Guanfacine Hcl Er 2 Mg Tab.Er.24h) 2 mg PO DAILY [facility] Last Admin: 11/25/24 08:00 Dose: 2 mg Hydroxyzine HCl (Hydroxyzine Hcl 50 Mg Tablet) 50 mg PO BID PRN PRN Reason: mild anxiety Last Admin: 11/24/24 15:34 Dose: 50 mg Magnesium Hydroxide (Milk Of Magnesia 30 Ml Oral.Susp) 30 ml PO DAILY PRN PRN Reason: Constipation Naltrexone HCl (Naltrexone Hcl 50 Mg Tablet) 50 mg PO DAILY [facility] Last Admin: 11/25/24 08:00 Dose: 50 mg Nicotine Polacrilex (Nicotine Polacrilex 2 Mg Gum) 4 mg BUCCAL Q2H PRN PRN Reason: Nicotine Cravings Last Admin: 11/24/24 21:27 Dose: 4 mg Nicotine Polacrilex (Nicotine Polacrilex Lozenge 2 Mg Lozenge) 2 mg BUCCAL Q2H PRN PRN Reason: Nicotine Cravings Last Admin: 11/24/24 20:11 Dose: 2 mg Olanzapine (Olanzapine 7.5 Mg Tablet) 7.5 mg PO BID PRN PRN Reason: agitation Last Admin: 11/24/24 12:49 Dose: 7.5 mg Olanzapine (Olanzapine 10 Mg Tablet) 10 mg PO BEDTIME [facility] Last Admin: 11/24/24 22:08 Dose: 10 mg Olanzapine (Olanzapine 5 Mg Tablet) 5 mg PO DAILY [facility] Last Admin: 11/25/24 08:00 Dose: 5 mg Ondansetron HCl (Ondansetron Odt 4 Mg Tab.Rapdis) 4 mg TRANSLINGU Q6H PRN PRN Reason: Nausea and Vomiting Thiamine HCl (Thiamine Hcl 100 Mg Tablet) 100 mg PO DAILY [facility] Last Admin: 11/25/24 08:00 Dose: 100 mg Trazodone HCl (Trazodone Hcl 50 Mg Tablet) 50 mg PO BEDTIME MRX1 PRN PRN Reason: Insomnia Last Admin: 11/24/24 22:08 Dose: 50 mg Venlafaxine HCl (Venlafaxine Hcl Er 75 Mg Cap.Er.24h) 75 mg PO DAILY [facility] Last Admin: 11/25/24 08:00 Dose: 75 mg Venlafaxine HCl (Venlafaxine Hcl Er 37.5 Mg Cap.Er.24h) 37.5 mg PO DAILY [facility] Last Admin: 11/25/24 08:00 Dose: 37.5 mg Allergies Allergies Allergy/AdvReac Type Severity Reaction Status Date / Time No Known Allergies Allergy Verified 10/17/24 19:26 Assessment & Plan Assessment & Plan (1) MDD (major depressive disorder), recurrent severe, without psychosis: Status: Acute Code(s): F33.2 - Major depressive disorder, recurrent severe without psychotic features (2) PTSD (post-traumatic stress disorder): Status: Acute Code(s): F43.10 - Post-traumatic stress disorder, unspecified (3) Alcohol abuse: Status: Acute Code(s): F10.10 - Alcohol abuse, uncomplicated Plan HPI: Patient is a 39 y.o single, Bulgarian speaking male with hx of MDD, anxiety, ADHD, and alcohol use d/o who presented to ED d/t increasing SI with plan to take a bunch of pills . Patient reports relapse on alcohol and has been drinking heavily the past couple of months with up to 1/2 of gallon of Vodka daily . On M5: patient reports reasons for this admission is that he stopped taking meds and stared drinking again with increase in SI. Report he has been drinking heavily the past couple of weeks. Observed with moderate W/D symptoms during assessment with the presence of SW. Patient would like to get back home after discharge and stay sober instead of going to the program. He wants to get back to work and make some money to support himself. Patient currently homeless for the past 2 months and has been staying/sharing house with friends where they 'selling guns . Formulation/clinical reasoning: relapse on alcohol, stop taking meds, increase in depression and anxiety, feeling SI with plan. Given hx of PTSD, ADHD, MDD, patient would benefit in restrictive environment for his safety, monitor for alcohol W/D symptoms, medication management and refer patient back to OP psychiatric services with AA meeting which was helpful in the past, back to work so he can support himself to get a safer housing/place. Hospital course: 11/20/24: reviewed lab results with slightly elevated on liver enzyme, HLD. A1C WNL. Will recheck EKG. Continue with CIWA protocol with Ativan PRN for alcohol W/D. Zofran available for N/V Start on Guanfacine ER 1mg daily in the AM for ADHD. Zyprexa 5mg at HS with PRN 7.5mg BID available. Restart on other home meds: Clondine 0.1 BID for BP. Effexor 75mg daily for mood/depression. 11/21/24: Meet with patient in Group room, report improving in mood and alcohol W/D symptoms. Report he has been active in groups this morning. Report some good effects from Guanfacine ER prescribed yesterday. Report too early to say but he was able to focus to read something and not get distracted by the noise around him. Report passive SI without plan or intent. He thinks Treatment program for alcohol use would be better plan for him. Report he always anxious and feel like Zyprexa is very helpful to help control it. Discuss with patient regarding medication changes, patient is receptive with the plan. He is aware of Ativan x2 doses to help with W/D symptoms until tomorrow. Educate patient on care home affect of alcohol on hand tremor which could be a permanent damage. Patient also asks for ensure to help him gain some weight. Also increase effexor XR for depression. Ativan 0.5mg x2 doses only: end on 11/22/24 Increase Effexor XR to 112.5mg daily for depression Ensure BID as supplement D/C CIWA and Ativan PRN. 11/22/24: Patient slept through the night, good appetite, attended groups, social with peers, appropriate, reading at times to distract himself from anxiety and sometimes feeling overwhelmed with active unit and noises. Report moderate anxiety. Denies SI/SIB/HI/AVH. SW sent referral out to [facility] yesterday. Pending results. Discuss with patient regarding medication change to target ADHD and severe anxiety as well as depressive symptoms. Patient is receptive to the plan. Completed CIWA and received last dose of Ativan this morning. Met with addiction team, would like to restart on Naltrexone. Naltrexone 50mg daily alcohol craving. Increase Zyperxa up to 10mg at HS mood Increase Guanfacine up to 2mg daily for ADHD. 11/23/24: Visible, social and appropriate, denies SI/SIB/HI/AVH. Patient is anxious, overwhelmed with lots of yelling this morning. Patient is easily stimulated by active unit this morning. Slept well, compliant with meds and denies side effects, slept for 8 hours. Continue with current medication plan 11/24/24:Slept 7 hours, compliant with medications. No side effects. Overwhelmed when peers are loud. Reports medication are helpful, continued to improve in anxiety and depression, but feeling irritable and agitated this morning but over all better and better with concentration and focus. [facility]ing for [facility] at [facility]. He is receptive with medication plan Increase zyprexa up to 15mg total in divided dose for severe anxiety. 11/25/24: Reports no adverse effects from meds. Discussed effects of loud noise on his stress level and resulting feeling of being lightheaded in response to this stress. Plan Patient on 15 minute checks for safety. Admitted to . CV. Work with treatment team to do collateral and for FLU psychiatric appointments. Patient would like to treatment program for alcohol. Referral sent to [facility] on 11/21 per SW: pending results. Medication management Patient seen by hospitalist on 11/20. Repeat EKG as QTc was prolong in the ED (513). EKG 11/20/24: NRS Reason for continued inpatient stay Substantial Risk for: stable for discharge Time Spent With Patient Time: Total time managing care of this patient today ____ minutes.
[2024-11-25] MEDS: Nicotine Polacrilex Lozenge 2 MG LOZENGE BUCCAL (14:41)
[2024-11-25 20:00] VITALS: BP 124/76; PULSE 110; RESP 18; TEMP 36.8; O2SAT 97
[2024-11-26 08:00] VITALS: BP 115/76; PULSE 77; RESP 20; TEMP 36.2; O2SAT 98
[2024-11-26] MEDS: Venlafaxine HCl ER 75 MG CAP.ER.24H PO (08:50)
[2024-11-26] MEDS: guanFACINE HCl ER 2 MG TAB.ER.24H PO (08:51)
[2024-11-26] MEDS: Venlafaxine HCl ER 37.5 MG CAP.ER.24H PO (08:51)
--- NOTE | 2024-11-26 10:33 | P.PNPSI_ITS ---
Subjective Subjective Date of Service: 11/26/24 Reason For Visit: unsepcified depressive d/o, alcohol use disorder Subjective Notes: Conditional Voluntary Healthcare Proxy: No Guardianship: No Medical Problems Affecting Mental Status: No Interim History: Edward reports having slept well, eight hours. Again reports regime to be helpful and effective in mgt of symptoms. Denies SI,HI,AH,VH. No symptoms of acute priscila or psychosis. Planning discharge for 11/28. Medication Compliance: Yes Side effects from medications: No Attending Groups: Intermittent Review of Systems Acute medical concerns: No Medical Review of Systems: unchanged Review of Systems Review of Systems Denies Mental Status Exam Mental Status Exam Patient Appearance: Appropriate Patient Orientation: Person, Place, Time and Situation Level of Consciousness: Alert Patient Behavior: Cooperative Mood Description: Constricted Affect Description: Constricted Patient Cognition Impaired: No Ability to Follow Directions: Good Speech Pattern: Spontaneous Speech Memory Description: Intact Hallucinations: None Delusions: Not Present Thought Process: Intact Thought Content: positive for Intact and positive for Suicidal Ideation (denies) Depressive Symptoms: Thoughts of /Suicide (denies) Judgement: Good Diagnostics Vital Signs (24Hr): Vital Signs - 24 hr 11/25/24 20:00 11/26/24 08:00 Temperature 98.2 F 97.2 F Pulse Rate 110 H 77 Respiratory Rate 18 20 Blood Pressure 124/76 115/76 Pulse Oximetry 97 98 Oxygen Delivery Method Room Air Room Air Medications Medications Current Medications Acetaminophen (Acetaminophen 325 Mg Tablet) 650 mg PO Q6H PRN PRN Reason: Headache/Pain, Scale 1-10 Last Admin: 11/23/24 14:44 Dose: 650 mg Al Hydroxide/Mg Hydroxide (Magnesium Hydrox/Alum Hydrox 30 Ml Oral.Susp) 30 ml PO Q6H PRN PRN Reason: Heartburn/Nausea Clonidine HCl (Clonidine Hcl 0.1 Mg Tablet) 0.1 mg PO BID [facility]; Protocol Last Admin: 11/26/24 08:50 Dose: 0.1 mg Guanfacine HCl (Guanfacine Hcl Er 2 Mg Tab.Er.24h) 2 mg PO DAILY [facility] Last Admin: 11/26/24 08:51 Dose: 2 mg Hydroxyzine HCl (Hydroxyzine Hcl 50 Mg Tablet) 50 mg PO BID PRN PRN Reason: mild anxiety Last Admin: 11/25/24 21:33 Dose: 50 mg Magnesium Hydroxide (Milk Of Magnesia 30 Ml Oral.Susp) 30 ml PO DAILY PRN PRN Reason: Constipation Naltrexone HCl (Naltrexone Hcl 50 Mg Tablet) 50 mg PO DAILY [facility] Last Admin: 11/26/24 08:50 Dose: 50 mg Nicotine Polacrilex (Nicotine Polacrilex 2 Mg Gum) 4 mg BUCCAL Q2H PRN PRN Reason: Nicotine Cravings Last Admin: 11/26/24 09:53 Dose: 4 mg Nicotine Polacrilex (Nicotine Polacrilex Lozenge 2 Mg Lozenge) 2 mg BUCCAL Q2H PRN PRN Reason: Nicotine Cravings Last Admin: 11/25/24 14:41 Dose: 2 mg Olanzapine (Olanzapine 7.5 Mg Tablet) 7.5 mg PO BID PRN PRN Reason: agitation Last Admin: 11/24/24 12:49 Dose: 7.5 mg Olanzapine (Olanzapine 10 Mg Tablet) 10 mg PO BEDTIME [facility] Last Admin: 11/25/24 21:33 Dose: 10 mg Olanzapine (Olanzapine 5 Mg Tablet) 5 mg PO DAILY [facility] Last Admin: 11/26/24 08:51 Dose: 5 mg Ondansetron HCl (Ondansetron Odt 4 Mg Tab.Rapdis) 4 mg TRANSLINGU Q6H PRN PRN Reason: Nausea and Vomiting Thiamine HCl (Thiamine Hcl 100 Mg Tablet) 100 mg PO DAILY [facility] Last Admin: 11/26/24 08:50 Dose: 100 mg Trazodone HCl (Trazodone Hcl 50 Mg Tablet) 50 mg PO BEDTIME MRX1 PRN PRN Reason: Insomnia Last Admin: 11/25/24 21:33 Dose: 50 mg Venlafaxine HCl (Venlafaxine Hcl Er 75 Mg Cap.Er.24h) 75 mg PO DAILY [facility] Last Admin: 11/26/24 08:50 Dose: 75 mg Venlafaxine HCl (Venlafaxine Hcl Er 37.5 Mg Cap.Er.24h) 37.5 mg PO DAILY [facility] Last Admin: 11/26/24 08:51 Dose: 37.5 mg Allergies Allergies Allergy/AdvReac Type Severity Reaction Status Date / Time No Known Allergies Allergy Verified 10/17/24 19:26 Assessment & Plan Assessment & Plan (1) MDD (major depressive disorder), recurrent severe, without psychosis: Status: Acute Code(s): F33.2 - Major depressive disorder, recurrent severe without psychotic features (2) PTSD (post-traumatic stress disorder): Status: Acute Code(s): F43.10 - Post-traumatic stress disorder, unspecified (3) Alcohol abuse: Status: Acute Code(s): F10.10 - Alcohol abuse, uncomplicated Plan HPI: Patient is a 39 y.o single, Macedonian speaking male with hx of MDD, anxiety, ADHD, and alcohol use d/o who presented to ED d/t increasing SI with plan to take a bunch of pills . Patient reports relapse on alcohol and has been drinking heavily the past couple of months with up to 1/2 of gallon of Vodka daily . On M5: patient reports reasons for this admission is that he stopped taking meds and stared drinking again with increase in SI. Report he has been drinking heavily the past couple of weeks. Observed with moderate W/D symptoms during a ssessment with the presence of SW. Patient would like to get back home after discharge and stay sober instead of going to the program. He wants to get back to work and make some money to support himself. Patient currently homeless for the past 2 months and has been staying/sharing house with friends where they 'selling guns . Formulation/clinical reasoning: relapse on alcohol, stop taking meds, increase in depression and anxiety, feeling SI with plan. Given hx of PTSD, ADHD, MDD, patient would benefit in restrictive environment for his safety, monitor for alcohol W/D symptoms, medication management and refer patient back to OP psychiatric services with AA meeting which was helpful in the past, back to work so he can support himself to get a safer housing/place. Hospital course: 11/20/24: reviewed lab results with slightly elevated on liver enzyme, HLD. A1C WNL. Will recheck EKG. Continue with CIWA protocol with Ativan PRN for alcohol W/D. Zofran available for N/V Start on Guanfacine ER 1mg daily in the AM for ADHD. Zyprexa 5mg at HS with PRN 7.5mg BID available. Restart on other home meds: Clondine 0.1 BID for BP. Effexor 75mg daily for mood/depression. 11/21/24: Meet with patient in Group room, report improving in mood and alcohol W/D symptoms. Report he has been active in groups this morning. Report some good effects from Guanfacine ER prescribed yesterday. Report too early to say but he was able to focus to read something and not get distracted by the noise around him. Report passive SI without plan or intent. He thinks Treatment program for alcohol use would be better plan for him. Report he always anxious and feel like Zyprexa is very helpful to help control it. Discuss with patient regarding medication changes, patient is receptive with the plan. He is aware of Ativan x2 doses to help with W/D symptoms until tomorrow. Educate patient on halfway affect of alcohol on hand tremor which could be a permanent damage. Patient also asks for ensure to help him gain some weight. Also increase effexor XR for depression. Ativan 0.5mg x2 doses only: end on 11/22/24 Increase Effexor XR to 112.5mg daily for depression Ensure BID as supplement D/C CIWA and Ativan PRN. 11/22/24: Patient slept through the night, good appetite, attended groups, social with peers, appropriate, reading at times to distract himself from anxiety and sometimes feeling overwhelmed with active unit and noises. Report moderate anxiety. Denies SI/SIB/HI/AVH. SW sent referral out to [facility] yesterday. Pending results. Discuss with patient regarding medication change to target ADHD and severe anxiety as well as depressive symptoms. Patient is receptive to the plan. Completed CIWA and received last dose of Ativan this morning. Met with addiction team, would like to restart on Naltrexone. Naltrexone 50mg daily alcohol craving. Increase Zyperxa up to 10mg at HS mood Increase Guanfacine up to 2mg daily for ADHD. 11/23/24: Visible, social and appropriate, denies SI/SIB/HI/AVH. Patient is anxious, overwhelmed with lots of yelling this morning. Patient is easily stimulated by active unit this morning. Slept well, compliant with meds and denies side effects, slept for 8 hours. Continue with current medication plan 11/24/24:Slept 7 hours, compliant with medications. No side effects. Overwhelmed when peers are loud. Reports medication are helpful, continued to improve in anxiety and depression, but feeling irritable and agitated this morning but over all better and better with concentration and focus. Waiting for placement at [facility]. He is receptive with medication plan Increase zyprexa up to 15mg total in divided dose for severe anxiety. 11/26/24: Continue tx. Plan Patient on 15 minute checks for safety. Admitted to . CV. Work with treatment team to do collateral and for FLU psychiatric appointments. Patient would like to treatment program for alcohol. Referral sent to [facility] on 11/21 per SW: pending results. Medication management Patient seen by hospitalist on 11/20. Repeat EKG as QTc was prolong in the ED (513). EKG 11/20/24: NRS Reason for continued inpatient stay Substantial Risk for: stable for discharge Time Spent With Patient Time: Total time managing care of this patient today ____ minutes.
[2024-11-26 20:00] VITALS: BP 119/65; PULSE 93; RESP 18; TEMP 36.7; O2SAT 96
[2024-11-26] MEDS: Nicotine Polacrilex Lozenge 2 MG LOZENGE BUCCAL (20:53)
[2024-11-27 07:56] VITALS: BP 101/61; PULSE 82; TEMP 36.3; O2SAT 98
[2024-11-27] MEDS: guanFACINE HCl ER 2 MG TAB.ER.24H PO (08:17)
[2024-11-27] MEDS: Venlafaxine HCl ER 75 MG CAP.ER.24H PO (08:17)
[2024-11-27] MEDS: Venlafaxine HCl ER 37.5 MG CAP.ER.24H PO (08:18)
--- NOTE | 2024-11-27 12:02 | HO.PSYCHPN ---
Subjective Subjective Date of Service: 11/27/24 Reason For Visit: unsepcified depressive d/o, alcohol use disorder Subjective Notes: Conditional Voluntary Healthcare Proxy: No Guardianship: No Medical Problems Affecting Mental Status: No Interim History: Denies SI,HI,AH,VH. Anxious regarding transfer with increase in prn use. States he does not want any dosage adjustments at this time. Visable in milieu. Social with select peers. Reports appropriate sleep/appetite/intake. Medication Compliance: Yes Side effects from medications: No Attending Groups: Intermittent Review of Systems Acute medical concerns: No Medical Review of Systems: unchanged Review of Systems Review of Systems Denies today Mental Status Exam Mental Status Exam Patient Appearance: Appropriate Patient Orientation: Person, Place, Time and Situation Level of Consciousness: Alert Patient Behavior: Avoidant and Good Eye Contact Mood Description: Constricted Affect Description: Constricted Patient Cognition Impaired: No Ability to Follow Directions: Good Speech Pattern: Spontaneous Speech Memory Description: Intact Hallucinations: None Delusions: Not Present Thought Process: Intact Thought Content: positive for Intact and positive for Suicidal Ideation (denies) Judgement: Good Diagnostics Vital Signs (24Hr): Vital Signs - 24 hr 11/26/24 20:00 11/27/24 07:56 Temperature 98.1 F 97.4 F Pulse Rate 93 82 Respiratory Rate 18 Blood Pressure 119/65 101/61 Pulse Oximetry 96 98 Oxygen Delivery Method Room Air Room Air Medications Medications Current Medications Acetaminophen (Acetaminophen 325 Mg Tablet) 650 mg PO Q6H PRN PRN Reason: Headache/Pain, Scale 1-10 Last Admin: 11/23/24 14:44 Dose: 650 mg Al Hydroxide/Mg Hydroxide (Magnesium Hydrox/Alum Hydrox 30 Ml Oral.Susp) 30 ml PO Q6H PRN PRN Reason: Heartburn/Nausea Clonidine HCl (Clonidine Hcl 0.1 Mg Tablet) 0.1 mg PO BID MICHAEL; Protocol Last Admin: 11/27/24 08:17 Dose: 0.1 mg Guanfacine HCl (Guanfacine Hcl Er 2 Mg Tab.Er.24h) 2 mg PO DAILY MICHAEL Last Admin: 11/27/24 08:17 Dose: 2 mg Hydroxyzine HCl (Hydroxyzine Hcl 50 Mg Tablet) 50 mg PO BID PRN PRN Reason: mild anxiety Last Admin: 11/26/24 13:41 Dose: 50 mg Magnesium Hydroxide (Milk Of Magnesia 30 Ml Oral.Susp) 30 ml PO DAILY PRN PRN Reason: Constipation Naltrexone HCl (Naltrexone Hcl 50 Mg Tablet) 50 mg PO DAILY [facility] Last Admin: 11/27/24 08:18 Dose: 50 mg Nicotine Polacrilex (Nicotine Polacrilex 2 Mg Gum) 4 mg BUCCAL Q2H PRN PRN Reason: Nicotine Cravings Last Admin: 11/27/24 08:46 Dose: 4 mg Nicotine Polacrilex (Nicotine Polacrilex Lozenge 2 Mg Lozenge) 2 mg BUCCAL Q2H PRN PRN Reason: Nicotine Cravings Last Admin: 11/26/24 20:53 Dose: 2 mg Olanzapine (Olanzapine 7.5 Mg Tablet) 7.5 mg PO BID PRN PRN Reason: agitation Last Admin: 11/24/24 12:49 Dose: 7.5 mg Olanzapine (Olanzapine 10 Mg Tablet) 10 mg PO BEDTIME MICHAEL Last Admin: 11/26/24 20:38 Dose: 10 mg Olanzapine (Olanzapine 5 Mg Tablet) 5 mg PO DAILY [facility] Last Admin: 11/27/24 08:17 Dose: 5 mg Ondansetron HCl (Ondansetron Odt 4 Mg Tab.Rapdis) 4 mg TRANSLINGU Q6H PRN PRN Reason: Nausea and Vomiting Thiamine HCl (Thiamine Hcl 100 Mg Tablet) 100 mg PO DAILY [facility] Last Admin: 11/27/24 08:18 Dose: 100 mg Trazodone HCl (Trazodone Hcl 50 Mg Tablet) 50 mg PO BEDTIME MRX1 PRN PRN Reason: Insomnia Last Admin: 11/26/24 20:53 Dose: 50 mg Venlafaxine HCl (Venlafaxine Hcl Er 75 Mg Cap.Er.24h) 75 mg PO DAILY [facility] Last Admin: 11/27/24 08:17 Dose: 75 mg Venlafaxine HCl (Venlafaxine Hcl Er 37.5 Mg Cap.Er.24h) 37.5 mg PO DAILY [facility] Last Admin: 11/27/24 08:18 Dose: 37.5 mg Allergies Allergies Allergy/AdvReac Type Severity Reaction Status Date / Time No Known Allergies Allergy Verified 10/17/24 19:26 Assessment & Plan Assessment & Plan (1) MDD (major depressive disorder), recurrent severe, without psychosis: Status: Acute Code(s): F33.2 - Major depressive disorder, recurrent severe without psychotic features (2) PTSD (post-traumatic stress disorder): Status: Acute Code(s): F43.10 - Post-traumatic stress disorder, unspecified (3) Alcohol abuse: Status: Acute Code(s): F10.10 - Alcohol abuse, uncomplicated Plan HPI: Patient is a 39 y.o single, Khmer speaking male with hx of MDD, anxiety, ADHD, and alcohol use d/o who presented to ED d/t increasing SI with plan to take a bunch of pills . Patient reports relapse on alcohol and has been drinking heavily the past couple of months with up to 1/2 of gallon of Vodka daily . On M5: patient reports reasons for this admission is that he stopped taking meds and stared drinking again with increase in SI. Report he has been drinking heavily the past couple of weeks. Observed with moderate W/D symptoms during assessment with the presence of SW. Patient would like to get back home after discharge and stay sober instead of going to the program. He wants to get back to work and make some money to support himself. Patient currently homeless for the past 2 months and has been staying/sharing house with friends where they 'selling guns . Formulation/clinical reasoning: relapse on alcohol, stop taking meds, increase in depression and anxiety, feeling SI with plan. Given hx of PTSD, ADHD, MDD, patient would benefit in restrictive environment for his safety, monitor for alcohol W/D symptoms, medication management and refer patient back to OP psychiatric services with AA meeting which was helpful in the past, back to work so he can support himself to get a safer housing/place. Hospital course: 11/20/24: reviewed lab results with slightly elevated on liver enzyme, HLD. A1C WNL. Will recheck EKG. Continue with CIWA protocol with Ativan PRN for alcohol W/D. Zofran available for N/V Start on Guanfacine ER 1mg daily in the AM for ADHD. Zyprexa 5mg at HS with PRN 7.5mg BID available. Restart on other home meds: Clondine 0.1 BID for BP. Effexor 75mg daily for mood/depression. 11/21/24: Meet with patient in Group room, report improving in mood and alcohol W/D symptoms. Report he has been active in groups this morning. Report some good effects from Guanfacine ER prescribed yesterday. Report too early to say but he was able to focus to read something and not get distracted by the noise around him. Report passive SI without plan or intent. He thinks Treatment program for alcohol use would be better plan for him. Report he always anxious and feel like Zyprexa is very helpful to help control it. Discuss with patient regarding medication changes, patient is receptive with the plan. He is aware of Ativan x2 doses to help with W/D symptoms until tomorrow. Educate patient on snf affect of alcohol on hand tremor which could be a permanent damage. Patient also asks for ensure to help him gain some weight. Also increase effexor XR for depression. Ativan 0.5mg x2 doses only: end on 11/22/24 Increase Effexor XR to 112.5mg daily for depression Ensure BID as supplement D/C CIWA and Ativan PRN. 11/22/24: Patient slept through the night, good appetite, attended groups, social with peers, appropriate, reading at times to distract himself from anxiety and sometimes feeling overwhelmed with active unit and noises. Report moderate anxiety. Denies SI/SIB/HI/AVH. SW sent referral out to [facility] yesterday. Pending results. Discuss with patient regarding medication change to target ADHD and severe anxiety as well as depressive symptoms. Patient is receptive to the plan. Completed CIWA and received last dose of Ativan this morning. Met with addiction team, would like to restart on Naltrexone. Naltrexone 50mg daily alcohol craving. Increase Zyperxa up to 10mg at HS mood Increase Guanfacine up to 2mg daily for ADHD. 11/23/24: Visible, social and appropriate, denies SI/SIB/HI/AVH. Patient is anxious, overwhelmed with lots of yelling this morning. Patient is easily stimulated by active unit this morning. Slept well, compliant with meds and denies side effects, slept for 8 hours. Continue with current medication plan 11/24/24:Slept 7 hours, compliant with medications. No side effects. Overwhelmed when peers are loud. Reports medication are helpful, continued to improve in anxiety and depression, but feeling irritable and agitated this morning but over all better and better with concentration and focus. Waiting for placement at [facility]. He is receptive with medication plan Increase zyprexa up to 15mg total in divided dose for severe anxiety. 11/26/24: Continue tx. 11/27/24: Discharge to [facility] 11/28. Plan Patient on 15 minute checks for safety. Admitted to . CV. Work with treatment team to do collateral and for FLU psychiatric appointments. Patient would like to treatment program for alcohol. Referral sent to [facility] on 11/21 per SW: pending results. Medication management Patient seen by hospitalist on 11/20. Repeat EKG as QTc was prolong in the ED (513). EKG 11/20/24: NRS Reason for continued inpatient stay Substantial Risk for: stable for discharge Time Spent With Patient Time: Total time managing care of this patient today ____ minutes.
[2024-11-27 21:12] VITALS: BP 113/68
[2024-11-27] MEDS: Nicotine Polacrilex Lozenge 2 MG LOZENGE BUCCAL (21:15)
[2024-11-27 22:35] VITALS: BP 113/68; PULSE 87; RESP 16; TEMP 36.2; O2SAT 97
[2024-11-28 07:44] VITALS: BP 123/61; PULSE 76; TEMP 36.5; O2SAT 96
[2024-11-28] MEDS: guanFACINE HCl ER 2 MG TAB.ER.24H PO (08:01)
[2024-11-28] MEDS: Venlafaxine HCl ER 75 MG CAP.ER.24H PO (08:02)
[2024-11-28] MEDS: Venlafaxine HCl ER 37.5 MG CAP.ER.24H PO (08:02)
--- NOTE | 2024-11-28 12:44 | PM.PSYDC ---
DS: Providers Provider Date of Service: 11/28/24 Date of admission: 11/19/24 16:30 Date of discharge: 11/28/24 Primary care physician: Unknown Physician Admitting clinician: Erika Holman Attending physician on admission: Nate Trujillo Consults: 11/19/24 17:11 Consult to Hospitalist Routine Comment: Consulting Provider: [facility] Hospitalists Reason For Exam: Transfer pt 11/20/24 11:33 Addiction Medicine Provider Routine Consulting Provider: Addiction Covering Reason for consultation: Heavily Alcohol use Has provider been notified: No Attending physician on discharge: Nate Trujillo Discharging clinician: Rena Gay DS: Diagnosis Discharge Diagnosis (1) MDD (major depressive disorder), recurrent severe, without psychosis: Status: Acute (2) PTSD (post-traumatic stress disorder): Status: Acute (3) Alcohol abuse: Status: Acute DS: Medications Discharge Medications Home Medications: Previous Rx's ?Medication ?Instructions ?Recorded acetaminophen 325 mg tablet 650 mg (2 x 325 mg) PO Q6H PRN 11/27/24 Headache/Pain, Scale 1-10 #0 tabs clonidine HCl 0.1 mg tablet 0.1 mg PO BID #60 tabs 11/27/24 guanfacine 2 mg tablet,extended 2 mg PO DAILY #30 tabs 11/27/24 release 24 hr hydroxyzine HCl 50 mg tablet 50 mg PO BID PRN mild anxiety #60 11/27/24 tabs naltrexone 50 mg tablet 50 mg PO DAILY #30 tabs 11/27/24 nicotine (polacrilex) 2 mg gum 4 mg buccal Q2H PRN Nicotine 11/27/24 Cravings #100 ea olanzapine 10 mg tablet 10 mg PO BEDTIME #30 tabs 11/27/24 olanzapine 5 mg tablet 5 mg PO DAILY #30 tabs 11/27/24 olanzapine 7.5 mg tablet 7.5 mg PO BID PRN agitation #60 11/27/24 tabs thiamine mononitrate (vit B1) 100 100 mg PO DAILY #30 tabs 11/27/24 mg tablet trazodone 50 mg tablet 50 mg PO BEDTIME MRX1 PRN Insomnia 11/27/24 #60 tabs venlafaxine 37.5 mg 37.5 mg PO DAILY #30 caps 11/27/24 capsule,extended release 24 hr venlafaxine 75 mg capsule,extended 75 mg PO DAILY #30 caps 11/27/24 release 24 hr Mental Status Exam Mental Status Exam Patient Appearance: Appropriate Patient Orientation: Person, Place, Time and Situation Level of Consciousness: Alert Patient Behavior: Avoidant and Good Eye Contact Mood Description: Constricted Affect Description: Constricted Patient Cognition Impaired: No Ability to Follow Directions: Good Speech Pattern: Spontaneous Speech Memory Description: Intact Hallucinations: None Delusions: Not Present Thought Process: Intact Thought Content: positive for Intact and positive for Suicidal Ideation (denies) Judgement: Good DS: Summary Hospital Course Hospital Course: Admission to adult psychiatry for exacerbation of PTSD, recurrent major depression, alcohol use disorder. Pt reported SI with relapse-using one half gallon Vodka daily. Stressors include two months of attempting to survive homelessness, and living in an unsafe environment where peers were selling weapons. Detox was completed. Medications were evaluated and adjusted. Pt was offered full milieu to help him strengthen coping skills. Pt was interested in continuing treatment and was accepted to [facility]. He will continue out patient psychiatric treatment with [facility] He will call/return as needed. Status at Discharge Functional status at discharge: independent ambulation Overall status at discharge: patient is progressing back to baseline Time Spent with Patient Time attestation: Total time managing care of this patient today ____ minutes. Time spent: Less than 30 minutes Discharge Plan Discharge Anticipated Discharge Date/Time: 11/28/24 11:00 Patient Disposition: Xfer Inpatient Rehab Fac Discharge Diagnosis: PTSD Recurrent Major Depression Alcohol Use Disorder Referrals: [facility] [Other] - 11/28/24 11:30 am Referral Note: Ed will be picked up by [facility] at 11:30. [facility] Therapy with Alexey Xie [Other] - 12/02/24 12:00 pm [facility] Psychiatry [Other] - 1 Week Referral Note: Ed does not have an out patient psychiatrist and will need support securing an appointment for them. Social work has asked [facility] to support with this for Ed. Physician,Unknown J [Primary Care Provider, Medical] Referral Note: PCP Appointment 12/06/24 at 10:00 am [facility] Discharge Medications: New venlafaxine 37.5 mg Capsule,Extended Release 24hr 37.5 mg PO DAILY Qty: 30 0RF clonidine HCl 0.1 mg Tablet 0.1 mg PO BID Qty: 60 0RF Protocol: Hold for SBP< HOLD for SBP < : 90 acetaminophen 325 mg Tablet 650 mg PO Q6H PRN (Reason: Headache/Pain, Scale 1-10) Qty: 0 0RF venlafaxine 75 mg Capsule,Extended Release 24hr 75 mg PO DAILY Qty: 30 0RF trazodone 50 mg Tablet 50 mg PO BEDTIME MRX1 PRN (Reason: Insomnia) Qty: 60 0RF nicotine (polacrilex) 2 mg Gum 4 mg buccal Q2H PRN (Reason: Nicotine Cravings) Qty: 100 0RF naltrexone 50 mg Tablet 50 mg PO DAILY Qty: 30 0RF olanzapine 5 mg Tablet 5 mg PO DAILY Qty: 30 0RF olanzapine 10 mg Tablet 10 mg PO BEDTIME Qty: 30 0RF hydroxyzine HCl 50 mg Tablet 50 mg PO BID PRN (Reason: mild anxiety) Qty: 60 0RF olanzapine 7.5 mg Tablet 7.5 mg PO BID PRN (Reason: agitation) Qty: 60 0RF guanfacine 2 mg Tablet Extended Release 24 Hr 2 mg PO DAILY Qty: 30 0RF thiamine mononitrate (vit B1) 100 mg Tablet 100 mg PO DAILY Qty: 30 0RF Discontinued clonidine HCl 0.1 mg tablet 0.1 mg PO BID Protocol: Hold for SBP< HOLD for SBP < : 90 hydroxyzine HCl 25 mg tablet 50 mg PO BID PRN (Reason: mild anxiety) nicotine (polacrilex) 2 mg Lozenge 2 mg buccal Q2H PRN (Reason: Nicotine Cravings) Qty: 72 0RF olanzapine 7.5 mg Tablet 7.5 mg PO BID PRN (Reason: agitation) Qty: 30 0RF venlafaxine 75 mg Capsule,Extended Release 24hr 75 mg PO DAILY 30 Days Qty: 30 0RF trazodone 50 mg Tablet 50 mg PO BEDTIME PRN (Reason: Insomnia) 30 Days Qty: 30 0RF naltrexone 50 mg Tablet 50 mg PO DAILY 30 Days Qty: 30 0RF Discharge Orders: Discharge Order (Routine); Ordered 11/28/24 Ordered By: Rena Gay Diet: Advance to usual diet Activity on Discharge: As tolerated Stand Alone Forms: Patient Portal Discharge page, Community Support Print Language: Barbadian Care Plan Goals: Mood and Behavioral Stabilization Abstinence from substances Health Concerns: Mood and Behavioral Stabilization Abstinence from substances Plan of Treatment: Transfer to [facility] for ongoing treatment Attend scheduled appointments Take medications as directed Assessment: No SI,HI,AH,VH Agrees with his plan of care and referrals. Discharge Date/Time: 11/28/24 11:27
== END 2024-11-28 11:27 | DRG 751 ==
PROVIDERS: Admitting Provider Psychiatry & Neurology Psychiatry; Visit Provider Clinical Nurse Specialist Psychiatric/Mental Health, Adult
DX: F33.2 Major depressive disorder, recurrent severe without psychotic features (principal); Q87.40 Marfan syndrome, unspecified; R45.851 Suicidal ideations; F43.10 Post-traumatic stress disorder, unspecified; F10.10 Alcohol abuse, uncomplicated; Z91.148 Patient's other noncompliance with medication regimen for other reason; F90.9 Attention-deficit hyperactivity disorder, unspecified type; Z59.02 Unsheltered homelessness; Z79.899 Other long term (current) drug therapy
CPT/HCPCS: 36415; 80061; 80076; 82607; 82746; 83036; 83735; 84439; 84443; 93005

== ENCOUNTER → 2024-11-19 16:30 | Outpatient (BNV) | payer MEDICAID, SELFPAY | PROVIDERS: Admitting Provider Psychiatry & Neurology Psychiatry; Visit Provider Nurse Practitioner Family | DX: Z00.8 Encounter for other general examination (principal) | CPT/HCPCS: 99499 ==

== ENCOUNTER → 2024-11-19 16:30 | Outpatient (BNV) | payer OTHER, SELFPAY | PROVIDERS: Admitting Provider Psychiatry & Neurology Psychiatry; Visit Provider Nurse Practitioner Psychiatric/Mental Health | DX: F33.2 Major depressive disorder, recurrent severe without psychotic features (principal); F10.10 Alcohol abuse, uncomplicated; F43.11 Post-traumatic stress disorder, acute | CPT/HCPCS: 99231; 99232 ==